=== PATIENT | male | born 1950 | race Caucasian/White ===

== ENCOUNTER 2017-03-08 15:08 | Emergency (ER) | payer MEDICARE ==
[2017-03-08 15:15] VITALS: BP 150/68
--- NOTE | 2017-03-08 16:25 | RAD ---
Indication: Cough, wheezing. 2 views of the chest including dual energy PA views demonstrate no mediastinal shift. Heart is of normal size and configuration. Lung vasques are clear. IMPRESSION: No active cardiopulmonary disease is noted. Patient is status post tracer thoracotomy.
--- NOTE | 2017-03-08 22:46 | UC ---
Dominga Martinez SooYoung, scribed for Samir Garcia MD on 03/08/17 at 1534 . Respiratory Complaint HPI - HPI Summary HPI Summary: A 66 y/o M presents to [facility] with c/o productive cough onset approx 10 days ago. Associated sx: mild fever, resolved; general malaise; post-nasal drip; head congestion. Denies vomiting. Aggravating factors: activity, exertion. Pt got sick on a trip to [place]. NKA. Pt takes daily baby aspirin. PMHx: mitral valve infection and repair in 2002. Non-smoker, occasional drinker. - History of Current Complaint Chief Complaint: UCRespiratory Stated Complaint: CHEST COLD Time Seen by Provider: 03/08/17 15:30 Hx Obtained From: Patient Onset/Duration: Gradual Onset, Lasting Days - approx 10, Still Present Timing: Constant Severity Initially: Mild Severity Currently: Mild Pain Intensity: 0 Pain Scale Used: 0-10 Numeric Character: Cough: Nonproductive Aggravating Factors: Exertion, Deep Breaths Associated Signs And Symptoms: Positive: Fever - resolved, Nasal Congestion - Allergies/Home Medications Allergies/Adverse Reactions: Allergies Allergy/AdvReac Type Severity Reaction Status Date / Time No Known Allergies Allergy Verified 03/08/17 15:23 PMH/Surg Hx/FS Hx/Imm Hx Previously Healthy: No Cardiovascular History: Myocardial Infarction - Surgical History Surgical History: Yes Surgery Procedure, Year, and Place: left scleral buckle. torn retina. tonsillectomy as a child. mitral valve repair - Family History Known Family History: Positive: Diabetes Family History: Parents lived to 93 y/o - Social History Occupation: Employed Full-time - SELF Lives: Alone Alcohol Use: Occasionally Substance Use Type: None Smoking Status (MU): Former Smoker When Did the Patient Quit Smoking/Using Tobacco: 20 yrs ago Review of Systems Constitutional: Fever ENT: Nasal Discharge - post nasal drip, Other - pos: head congestion Respiratory: Cough Gastrointestinal: Negative Musculoskeletal: Other: - pos: general malaise All Other Systems Reviewed And Are Negative: Yes Physical Exam Triage Information Reviewed: Yes Vital Signs: Initial Vital Signs Temp 98.3 F 03/08/17 15:11 Pulse 74 03/08/17 15:11 Resp 18 03/08/17 15:11 BP 150/68 03/08/17 15:11 Pulse Ox 97 03/08/17 15:11 Vital Signs Reviewed: Yes - Additional Comments The patient is well-nourished in no acute distress and in no acute pain. The skin is warm and dry and skin color reflects adequate perfusion. HEENT: The head is normocephalic and atraumatic. The pupils are equal and reactive. The conjunctivae are clear and without drainage. Nares are patent. Mouth reveals moist mucous membranes and the throat is without erythema and exudate. The external ears are intact. The ear canals are patent and without drainage. The tympanic membranes are intact. POST-NASAL DRIP. Neck is supple with full range of motion and non-tender. There are no carotid bruits. There is no neck vein distension. Respiratory: Chest is non-tender. DIFFUSE WHEEZING AND RHONCHI. Cardiovascular: Hear is regular rate and rhythm. There is no murmur or rub auscultated. There is no peripheral edema and pulses are symmetrical and equal. Musculoskeletal: There is no back pain noted. Extremities are non-tender with full range of motion. There is good capillary refill. There is no peripheral edema or calf tenderness elicited. Neurological: Patient is alert and oriented to person, place and time. The patient has symmetrical motor strength in all four extremities. Cranial nerves are grossly intact. Deep tendon reflexes are symmetrical and equal in all four extremities. Psychiatric: The patient has an appropriate affect and does not exhibit any anxiety or depression. Diagnostic Evaluation - Laboratory O2 Sat by Pulse Oximetry: 97 - Radiology Xray Interpretation: No Acute Changes - IMPRESSION: No acute cardiopulmonary dz. Pt is s/p tracer thoracotomy. Radiology Interpretation Completed By: Radiologist Respiratory Course/Dx - Course Course Of Treatment: Pt medications reviewed this visit. Hypertensive BP reading; patient referred to PCP within 1 day-4 wks for follow-up. - Differential Dx/Diagnosis Differential Diagnosis/HQI/PQRI: Bronchitis, Lower Resp Infection, Sinusitis Provider Diagnoses: Acute bronchitis. Elevated blood pressure without diagnosis of hypertension. Discharge - Discharge Plan Condition: Stable Disposition: HOME Prescriptions: Albuterol HFA INHALER* [Ventolin HFA Inhaler*] 2 puff INH Q6H PRN #1 mdi PRN Reason: Cough Azithromycin TAB* [Zithromax TAB (Z-VIANNEY) 250 mg #6 tabs] 2 tab PO .TODAY, THEN 1 DAILY #1 vianney predniSONE TAB* [Deltasone TAB*] 60 mg PO DAILY #15 tab Patient Education Materials: Albuterol (By breathing), Prednisone (By mouth), Azithromycin (By mouth), Acute Bronchitis (ED), Hypertension (ED) Referrals: [facility]ERR[facility] [Outside] No Primary Care Phys,NOPCP [Primary Care Provider] - Additional Instructions: Your blood pressure reading today was 150/68, which is HYPERTENSIVE. Establish with a new primary care provider and follow-up within 4 weeks for blood pressure readings and further evaluation. If you cant find a provider, try to check your blood pressure on your own and see if its above 120/80. If so, follow up for further evaluation and treatment. The documentation as recorded by the Dominga bell SooYoung accurately reflects the service I personally performed and the decisions made by me, Samir Garcia MD.
== END 2017-03-08 16:15 | disposition home or self-care (01) ==
LOC: UCEAST 15:08
DX: J20.9 Acute bronchitis, unspecified (principal); R03.0 Elevated blood-pressure reading, without diagnosis of hypertension; Z87.891 Personal history of nicotine dependence
CPT/HCPCS: 71020; 99212; G0463

== ENCOUNTER 2017-07-30 18:19 | Emergency (ER) | payer MEDICARE ==
[2017-07-30 18:35] VITALS: BP 112/68
--- NOTE | 2017-07-30 20:30 | ED ---
Upper Extremity Pain - HPI Summary HPI Summary: Rt hand dominant pt here w/ multiple fingers lacs Lt fingers, most notably middle finger, s/p table saw accident. Denies numbness, tingling, weakness. - History of Current Complaint Chief Complaint: EDLacSutureRecheck Stated Complaint: LT MIDDLE FINGER LAC Time Seen by Provider: 07/30/17 19:40 Hx Obtained From: Patient - Allergies/Home Medications Allergies/Adverse Reactions: Allergies Allergy/AdvReac Type Severity Reaction Status Date / Time No Known Allergies Allergy Verified 03/08/17 15:23 PMH/Surg Hx/FS Hx/Imm Hx Endocrine/Hematology History: Denies: Hx Diabetes, Hx Thyroid Disease Cardiovascular History: Denies: Hx Hypertension, Hx Pacemaker/ICD Respiratory History: Denies: Hx Asthma, Hx Chronic Obstructive Pulmonary Disease (COPD) GI History: Denies: Hx Ulcer - Surgical History Surgery Procedure, Year, and Place: left scleral buckle. torn retina. tonsillectomy as a child. mitral valve repair - Immunization History Date of Tetanus Vaccine: 2013 Infectious Disease History: No Infectious Disease History: Denies: Hx Clostridium Difficile, Hx Hepatitis, Hx Human Immunodeficiency Virus (HIV), Hx of Known/Suspected MRSA, Hx Shingles, Hx Tuberculosis, Hx Known/ Suspected VRE, Hx Known/Suspected VRSA, History Other Infectious Disease, Traveled Outside the [place] in Last 30 Days - Family History Known Family History: Positive: Diabetes Family History: Parents lived to 93 y/o - Social History Alcohol Use: Occasionally Substance Use Type: Reports: None Smoking Status (MU): Former Smoker Physical Exam Vital Signs On Initial Exam: Initial Vitals Temp Pulse Resp BP Pulse Ox 98.4 F 72 20 112/68 100 07/30/17 18:32 07/30/17 18:32 07/30/17 18:32 07/30/17 18:32 07/30/17 18:32 - Tushar Coma Scale Coma Scale Total: 15 Procedures - Laceration/Wound Repair 1 Location: upper extremity - Left middle finger Description: Irregular - curved lac over dorsal PIP joint Anesthesia: Digital, Lido Length, Depth and Shape: 4cm x 4mm Betadine Prep?: Yes Irrigated w/ Saline (ccs): 2,000 Laceration/Wound Explored: clean Closure: Single Layer Suture Type: Nylon - 5-0 Number of Sutures: 5 Layer Closure?: No Sterile Dressing Applied?: Yes - xerform dressing w/ gauze, splint, coban - pt tolerated well Diagnostics - Vital Signs Vital Signs Temp Pulse Resp BP Pulse Ox 07/30/17 18:32 98.4 F 72 20 112/68 100 - Laboratory Diagnostic Studies Comment: XR of left hand reveals fx through Lt PIP joint involving distal edge of proximal phalange bone and proximal edge of middle phalange - report read and image reviewed - agree. No other fractures identified and no FB present although what appears to be a bone fragment is present near PIP joint of Lt finger. Lab Statement: Any lab studies that have been ordered have been reviewed, and results considered in the medical decision making process. Course/Dx - Course Course Of Treatment: Discussed w/ Dr. Diez - copious irrigation and simple closure - dressed and stabilized with splint. Pt to call office in the morning for appt. Reviewed care plan w/ pt - he voices understanding and agrees w/ plan. - Diagnoses Provider Diagnoses: Multiple abrasions, Open fracture of phalanx of left middle finger Discharge - Discharge Plan Condition: Stable Disposition: HOME Patient Education Materials: Finger Fracture (ED), Finger Laceration (ED) Referrals: Michelle Diez MD [Medical Doctor] - Additional Instructions: Rest, ice, elevate Keep dressing clean, dry and in place until seen by hand specialist. Call tomorrow to schedule appointment tomorrow. Take antibiotics and pain medications as directed.
--- NOTE | 2017-07-30 21:03 | RAD ---
INDICATION: Finger lacerations COMPARISON: Left third digit July 30, 2015 TECHNIQUE: AP, lateral, and oblique views were obtained. FINDINGS: There is a deep laceration at the PIP joint of the third digit which involves both the distal aspect of the proximal phalanx and proximal aspect of the middle phalanx. There is no foreign body. No additional significant findings. IMPRESSION: LACERATION PIP JOINT OF THE THIRD DIGIT WITH ASSOCIATED BONE INVOLVEMENT.
[2017-07-30] MEDS ORDERED: Cephalexin CAP* 500 MG PO ONE (21:52)
[2017-07-31] MEDS ORDERED: Cephalexin CAP* 500 MG PO ONE (00:02)
[2017-07-31] MEDS ORDERED: HYDROcodone/ACETAMIN 5-325 MG* 1 TAB PO ONE (00:02)
== END 2017-07-31 00:24 | disposition home or self-care (01) ==
LOC: ED 18:19
DX: S61.213A Laceration without foreign body of left middle finger without damage to nail, initial encounter (principal); W29.8XXA Contact with other powered hand tools and household machinery, initial encounter; Y93.9 Activity, unspecified; Y92.9 Unspecified place or not applicable
CPT/HCPCS: 12002; 99282; A9270-GY

== ENCOUNTER 2018-06-26 12:31 | Inpatient (IN) | payer MEDICARE ==
[2018-06-26] MEDS ORDERED: Diltiazem IV* 5 MG/ML 5 ML VIAL (for loading dose/IV Push) (25 MG) ONE (16:38)
--- NOTE | 2018-06-26 17:08 | ED ---
Palpitations / Dysrhythmia - HPI Summary HPI Summary: This patient is a 67 year old M presenting to [facility] after being sent from his PCP after receiving a new dx of afib. The patient rates the pain 0/10 in severity. Patient reports bilateral LE edema, intermittent palpitations, and fatigue for the last two weeks. Patient denies CP, SOB, and feeling of syncope. - History of Current Complaint Time Seen by Provider: 06/26/18 16:40 Hx Obtained From: Patient Onset/Duration: Still Present Timing: Constant Severity Initially: Moderate Severity Currently: Moderate Character: Irregular Associated Signs & Symptoms: Negative - CP - Allergy/Home Medications Allergies/Adverse Reactions: Allergies Allergy/AdvReac Type Severity Reaction Status Date / Time colchicine AdvReac See Comment Verified 02/07/18 12:26 Home Medications: Home Medications Aspirin EC TAB* [Ecotrin EC Low Dose 81 MG*] 81 mg PO DAILY 06/26/18 [History Confirmed 06/26/18] PMH/Surg Hx/FS Hx/Imm Hx Endocrine/Hematology History: Denies: Hx Anticoagulant Therapy, Hx Blood Disorders, Hx Diabetes, Hx Thyroid Disease Cardiovascular History: Reports: Hx Atrial Fibrillation Denies: Hx Hypertension, Hx Pacemaker/ICD Respiratory History: Denies: Hx Asthma, Hx Chronic Obstructive Pulmonary Disease (COPD) GI History: Denies: Hx Ulcer - Surgical History Surgery Procedure, Year, and Place: left scleral buckle. torn retina. tonsillectomy as a child. mitral valve repair - Immunization History Date of Tetanus Vaccine: 2013 Infectious Disease History: Denies: Hx Clostridium Difficile, Hx Hepatitis, Hx Human Immunodeficiency Virus (HIV), Hx of Known/Suspected MRSA, Hx Shingles, Hx Tuberculosis, Hx Known/ Suspected VRE, Hx Known/Suspected VRSA, History Other Infectious Disease, Traveled Outside the [place] in Last 30 Days - Family History Known Family History: Positive: Diabetes Family History: Parents lived to 93 y/o - Social History Alcohol Use: Occasionally Hx Substance Use: No Substance Use Type: Reports: None Hx Tobacco Use: Yes Smoking Status (MU): Former Smoker Review of Systems Positive: Fatigue. Negative: Fever, Chills Negative: Erythema Negative: Sore Throat Positive: Palpitations. Negative: Chest Pain Negative: Shortness Of Breath, Cough Negative: Abdominal Pain, Vomiting, Nausea Negative: dysuria, hematuria Positive: Edema. Negative: Myalgia Negative: Rash Neurological: Negative - dizziness All Other Systems Reviewed And Are Negative: Yes Physical Exam - Summary Physical Exam Summary: Constitutional: Well-developed, Well-nourished, Alert. (-) Distressed Skin: Warm, Dry HENT: Normocephalic; Atraumatic Eyes: Conjunctiva normal Neck: Musculoskeletal ROM normal neck. (-) JVD, (-) Stridor, (-) Tracheal deviation Cardio: rapid irregular heart beat, Heart sounds normal; Intact distal pulses; The pedal pulses are 2+ and symmetric. Radial pulses are 2+ and symmetric. (-) Murmur Pulmonary/Chest wall: Effort normal. (-) Respiratory distress, (-) Wheezes, (-) Rales Abd: Soft, (-) epigastric tenderness, (-) Distension, (-) Guarding, (-) Rebound Musculoskeletal: (+) 2+ pitting Edema bilat LE Lymph: (-) Cervical adenopathy Neuro: Alert, Oriented x3 Psych: Mood and affect Normal Triage Information Reviewed: Yes Vital Signs Reviewed: Yes Diagnostics - Laboratory Result Diagrams: 06/26/18 16:10 06/26/18 16:10 Lab Statement: Any lab studies that have been ordered have been reviewed, and results considered in the medical decision making process. - Radiology CXR Radiology Interpretation Completed By: Radiologist - CARDIOMEGALY ED physician has reviewed this radiology report. - EKG 1246 Cardiac Rate: Tachycardia EKG Rhythm: Atrial Fibrillation - at 132 BPM EKG Interpretation: No STEMI Course/Dx - Course Assessment/Plan: This patient is a 67 year old M presenting to [facility] after being sent from his PCP after receiving a new dx of afib. The patient rates the pain 0/10 in severity. Patient reports bilateral LE edema, intermittent palpitations, and fatigue for the last two weeks. Patient denies CP, SOB, and feeling of syncope. An EKG reveals afib. CXR reveals, per radiologist, CARDIOMEGALY. Blood work obtained. In the ED course the patient was given lasix and diltiazem. Dx afib with RVR. We discussed patient care with Dr Kiser and they accepted the patient for admission. Patient will be admitted. The patient is agreeable with this plan. - Diagnoses Provider Diagnoses: Atrial fibrillation with RVR, CHF exacerbation - Physician Notifications Discussed Care Of Patient With: Sergey Monsones Time Discussed With Above Provider: 17:20 Instructed by Provider To: Admit As Inpatient - Critical Care Time Critical Care Time: 30-74 min - 45 minutes Discharge - Sign-Out/Discharge Documenting (check all that apply): Patient Departure - admitted - Discharge Plan Condition: Fair Disposition: ADMITTED TO [facility] Referrals: Wan Chester MD [Primary Care Provider] - - Attestation Statements Document Initiated by Scribe: Yes Documenting Scribe: Timothy Angel Provider For Whom Scribe is Documenting (Include Credential): [place] Andrea MD Scribe Attestation: Timothy Martinez , scribed for [place] Andrea MD on 06/26/18 at 1811.
[2018-06-26] MEDS ORDERED: Furosemide IV* 10 MG/ML VIAL (40 MG) IV ONE (17:43)
[2018-06-26] MEDS ORDERED: Furosemide IV* 10 MG/ML VIAL (40 MG) ONE (17:44)
[2018-06-26 18:05] LABS: EGFR Non-African American 56.1 (>60)
[2018-06-26] MEDS ORDERED: Al Hydrox/Mg Hydrox/Simet LIQ* 30 ML UDC PO PRN (18:09)
[2018-06-26 18:10] LABS: ABS Basophils 0 10^3/ul (0-0.2); ABS Eosinophils 0 10^3/ul (0-0.6); ABS Lymphocytes 0.7 10^3/ul (1.0-4.8); ABS Monocytes 0.5 10^3/ul (0-0.8); ABS Neutrophils 3.1 10^3/ul (1.5-7.7); ABS Nucleated RBC 0 10^3/ul; Eosinophil % 0.4 % (0-6); Hematocrit 31 % (42-52); Hemoglobin 9.8 g/dl (14.0-18.0); Lymphocyte % 16.4 % (25-47); Mean Corpuscular HGB Conc 32 g/dl (31-36); Mean Corpuscular Hemoglobin 35 pg (27-31); Mean Corpuscular Volume 110 fL (80-94); Mean Platelet Volume 8.5 um3 (7.4-10.4); Nucleated Red Blood Cells % 0.6; Platelet Count 192 10^3/ul (150-450); Red Cell Distribution Width 20 % (10.5-15); White Blood Count 4.4 10^3/ul (3.5-10.8)
--- NOTE | 2018-06-26 18:10 | RAD ---
HISTORY: SOB COMPARISONS: March 08, 2017 VIEWS: 1: frontal portable view of the chest at 5:21 PM FINDINGS: LINES AND TUBES: None. CARDIOMEDIASTINAL SILHOUETTE: The cardiac silhouette is enlarged. The cardiomediastinal silhouette is otherwise normal for portable technique. A prosthetic aortic valve is noted. PLEURA: The costophrenic angles are sharp. No pleural abnormalities are noted. LUNG PARENCHYMA: The lungs are clear. ABDOMEN: The upper abdomen is clear. There is no subphrenic gas. BONES AND SOFT TISSUES: The patient is status post median sternotomy. IMPRESSION: CARDIOMEGALY
[2018-06-26] MEDS ORDERED: Diltiazem DRIP* 100 MG/100 ML ADDV.BAG IVPB SCH (19:00)
[2018-06-26] MEDS ORDERED: Diltiazem IV VIAL* 125 MG in NS 0.9% 100 ML* 100 ML IV SCH (21:00)
[2018-06-26] MEDS: Enoxaparin(*) 80 MG/0.8 ML SYR SUBCUT SCH (21:28)
[2018-06-26] MEDS: Zolpidem TAB* 5 MG PO SCH (21:28)
--- NOTE | 2018-06-26 22:39 | HP ---
HISTORY AND PHYSICAL: DATE OF ADMISSION: 06/26/18 ADDENDUM: Please note that the patient's increased creatinine and increased liver function test are likely due to hypoperfusion and process of congestion respectively. I will repeat those tests in the morning and hopefully that will improve after intravenous Lasix treatment tonjeff. [id number]/[id number] #: [id number] MTDD
--- NOTE | 2018-06-27 00:09 | HP ---
ADDENDUM NOW INCLUDED ON THIS REPORT CC: Dr. Gorman; Dr. Bell * HISTORY AND PHYSICAL: DATE OF ADMISSION: 06/26/18 PRIMARY CARE PROVIDER: Dr. Agapito Bell. CHIEF COMPLAINT: "Atrial fibrillation." HISTORY OF PRESENT ILLNESS: Eliot Hernandez is a 67-year-old male who went in to see Dr. Bell for first doctor's appointment since he was switching from previously being Dr. Chester's patient. The patient stated that he noticed that he has gained approximately 6 pounds and his legs have been swollen and his abdominal girth increased for the past 2 weeks. He also noted that he was tired all the time, but denies shortness of breath per se. He did not have any chest pain or paroxysmal nocturnal dyspnea. He was seen by Dr. Bell who noted that patient is in atrial fibrillation with rapid ventricular response and directed the patient to the hospital. Here, the patient's heart rate was noted to be in the 130s and the patient received boluses of IV Cardizem. His brain natriuretic peptide is elevated and he appears to be in congestive heart failure. He is going to be admitted with diagnoses of atrial fibrillation with rapid ventricular response and CHF. PAST MEDICAL HISTORY: 1. History of retinal tear, status post left eye surgery. 2. History of dyslipidemia, on no medications. 3. 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 MEDICATIONS: 1. Aspirin 81 mg daily. 2. Occasional potassium supplement. ALLERGIES: COLCHICINE causes rash. FAMILY HISTORY: Positive for both parents dying in their 90s. Mother with secondary dementia. Father with history of dementia after a fall and femur fracture. 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 He denies any tobacco, alcohol, or drug use. He lives alone and he could not name his surrogate. REVIEW OF SYSTEMS: Please see history of present illness. In addition to leg edema, increasing abdominal girth, the patient also stated that he has early satiety for the past 2 weeks. He denies any chest pain. He also noted in the past to have leg cramps and he stated that when he has leg cramps, he uses additional potassium pill that he buys over the counter. All the remaining 12 systems were reviewed with the patient and were otherwise negative. PHYSICAL EXAMINATION GENERAL: The patient is a very pleasant 67-year-old male, who is in no acute distress. Alert, awake, and oriented x3. VITAL SIGNS: Blood pressure of 121/76, heart rate of 110 and irregular, respiratory rate 16, oxygen saturation 99% on room air. HEENT: Head: Atraumatic, normocephalic. Eyes: Pupils are equal, reactive to light and accommodation. Oropharynx is clear. Mucosa moist. NECK: Supple. Positive for JVD bilaterally. RESPIRATORY: Crackles at the bilateral bases. Otherwise clear. CARDIOVASCULAR: Irregularly irregular rhythm. No murmur. ABDOMEN: Full to palpation with no ascites noted. Soft, nontender. Bowel sounds are present in all 4 quadrants. EXTREMITIES: There is +1 pitting pedal edema all the way to the patient's knees with no evidence of clubbing or cyanosis and good peripheral pulses in all 4 extremities. NEURO EVALUATION: Speech clear. Cranial nerves II through XII are grossly intact. Motor strength is 5/5 bilaterally. SKIN: On evaluation of the skin, the patient has some superficial scratches on the right lower extremity, which appeared to be not infected. No other lesions noted. DIAGNOSTIC STUDIES/LAB DATA: Sodium of 133, potassium was hemolyzed, chloride of 102, carbon dioxide 20, BUN 16, creatinine 1.28. Liver function is increased with a bilirubin of 1.2, AST of 159, ALT of 160, and alk phos of 90. Troponin of 0.03. Brain natriuretic peptide was 616. The patient's CBC showed white blood cell count of 4.4, hemoglobin of 9.8, hematocrit of 30, MCV of 109, platelets of 192. The patient's TSH is pending at the time of dictation. The patient's troponin is 0.03 as above mentioned. The patient's EKG showed atrial fibrillation with rapid ventricular response with a heart rate of 132 beats per minute with negative T waves in leads V1 to V4 as well as ST depressions in those areas. Portable chest x-ray read by the radiologist as "cardiomegaly." ASSESSMENT AND PLAN: 1. The patient is in atrial fibrillation with rapid ventricular response as well as congestive heart failure, which is likely subsequent to the atrial fibrillation. At this point, the patient already received 40 mg of IV Lasix in the emergency department. I will repeat another dose of Lasix in the morning. 2. For this acute diastolic congestive heart failure, the patient is going to be placed on daily weights as well as intake and output summaries. 3. For his atrial fibrillation, the patient is going to be started on Cardizem drip. TSH is pending at the time of dictation. We will try to keep his electrolytes with magnesium over 2 and potassium over 4. The patient is going to be placed n.p.o. in the morning for a possibility of cardioversion. I will ask Dr. Gorman to see the patient in consultation. The patient was educated about the need for anticoagulation due to cardioembolic stroke prevention and he is initially going to be placed on Lovenox and then switch to either Coumadin or other newer anticoagulants, which he is inclined to use. 4. The patient is anemic and with macrocytosis. His vitamin B12, folate as well as ferritin is going to be obtained to evaluate it further. He has no history of melena or bleeding otherwise. Stool Hemoccult is also going to be obtained. 5. To evaluate for dyslipidemia, fasting lipid profile is going to be obtained in the morning. 6. For DVT prophylaxis, the patient already is going to be on Lovenox as mentioned above. 7. The patient's code status is full and he unfortunately was not able to name his surrogate for the time being. TIME SPENT: Approximately 65 minutes were spent on admission of this patient, more than half of that time was spent [id number] with the patient during the interview and physical exam. ADDENDUM: Please note that the patient's increased creatinine and increased liver function test are likely due to hypoperfusion and process of congestion respectively. I will repeat those tests in the morning and hopefully that will improve after intravenous Lasix treatment [place]. [id number] #: [id number] #: [id number]
[2018-06-27] MEDS: Enoxaparin(*) 80 MG/0.8 ML SYR SUBCUT SCH ×2 (06:18→19:59)
[2018-06-27 07:20] LABS: Hematocrit 29 % (42-52); Hemoglobin 9.7 g/dl (14.0-18.0); Mean Corpuscular HGB Conc 34 g/dl (31-36); Mean Corpuscular Hemoglobin 37 pg (27-31); Mean Corpuscular Volume 109 fL (80-94); Mean Platelet Volume 7.5 um3 (7.4-10.4); Platelet Count 206 10^3/ul (150-450); Red Blood Count 2.65 10^6/ul (4.00-5.40); Red Cell Distribution Width 20 % (10.5-15); White Blood Count 4.5 10^3/ul (3.5-10.8)
[2018-06-27 07:36] LABS: EGFR Non-African American 60.4 (>60)
[2018-06-27] MEDS ORDERED: Furosemide IV* 10 MG/ML 2 ML VIAL (20 MG) IV ONE (08:00)
[2018-06-27] MEDS: Diltiazem IV VIAL* 125 MG in NS 0.9% 100 ML* 100 ML IV SCH ×2 (08:05→14:07)
[2018-06-27 08:29] LABS: ABS Basophils 0 10^3/ul (0-0.2); ABS Neutrophils 2.8 10^3/ul (1.5-7.7); ABS Neutrophils 3.3 10^3/ul (1.5-7.7); Monocytes % 3 % (0-7)
[2018-06-27] MEDS: Aspirin EC TAB* 81 MG TAB.EC PO SCH (09:43)
[2018-06-27] MEDS ORDERED: Thiamine IV 100 MG, Folic Acid IV* 1 MG, Multiple Vitamin IV ADULT* 10 ML in D5NS 0.9% ... IV ONE (13:19)
[2018-06-27] MEDS ORDERED: Digoxin IV* 0.5 MG/2 ML AMP (0.25 MG/ML) IV SLOW PU ONE (13:19)
[2018-06-27] MEDS ORDERED: Metoprolol Tartrate IV* 1 MG/ML 5 ML VIAL IV PRN (13:22)
[2018-06-27] MEDS ORDERED: Metoprolol Tartrate IV* 1 MG/ML 5 ML VIAL IV ONE (14:25)
--- NOTE | 2018-06-27 14:49 | ECHO ---
Patient: LEXIE ROMAN [facility] Rec#: [id number] : 1950 Date: 06/27/2018 Age: 67y Height: 182.88 cm / 72.0 in Weight: 85 kg / 187.3 lbs Sex: M BSA: 2.07 Room#: [facility] Admit Date#: 06/26/2018 Type: Inpatient Referring: Eva Lux MD Reading: Bharath Gorman MD Cigar Maker: Viky Barbour RDCS CC: Agapito Sorenson Transthoracic Echocardiogram Indication: Abnormal EKG, Afib with RVR BP: 117/60 HR: 101 Rhythm: A-Fib Findings History: Spontaneous bacterial endocarditis 2001, MV repair for ruptured chordae 2002, HLD. Technical Comments: The study quality is fair. Completed at 1345. Left Ventricle: The left ventricular chamber size is normal. There is no left ventricular hypertrophy. There is normal left ventricular systolic function. The estimated ejection fraction is 55-60%. There is septal flattening of the interventricular septum consistent with right ventricular volume or pressure overload. The assessment of diastolic function is non-diagnostic. Left Atrium: The left atrium is severely dilated. Right Ventricle: Moderator Band present. The right ventricle is severely dilated. The right ventricular global systolic function is moderately reduced.moderately to severely reduced. Flattened in systole and diastole consistent with right ventricular pressure and volume overload. Right Atrium: The right atrial cavity size is severely dilated. Aortic Valve: The aortic valve is trileaflet. The aortic valve leaflets are mildly thickened. There is no evidence of aortic regurgitation. There is no evidence of aortic stenosis. Mitral Valve: The mitral valve leaflets are moderately thickened. Mitral valve leaflet mobility is severely restricted. There is a trace of mitral regurgitation. There is moderate to severe mitral stenosis. by 2d and mean gradient. The mean gradient across the mitral valve is 17 mmHg. The peak gradient across the mitral valve is 35 mmHg. The pressure half time of the mitral valve is 123 msec. Mitral valve repair functioning abnormally. Tricuspid Valve: The tricuspid valve leaflets are mildly thickened. There is severe tricuspid regurgitation. The right ventricular systolic pressure is estimated at 78 mmHg. There is evidence of severe pulmonary hypertension. There is no tricuspid stenosis. Pulmonic Valve: The pulmonic valve appears normal. There is a trace pulmonic regurgitation. There is no pulmonic stenosis. Pericardium: There is no significant pericardial effusion. Aorta: There is no dilatation of the ascending aorta. There is no dilatation of the aortic arch. The aortic root is normal in size. Pulmonary Artery: The main pulmonary artery is not well visualized. Venous: The inferior vena cava is dilated. There is less than 50% respiratory change in the inferior vena cava dimension. Hepatic vein systolic flow is reversed. Summary: There was not any prior study for comparison. Conclusions There is normal left ventricular systolic function. The estimated ejection fraction is 55-60%. There is septal flattening of the interventricular septum consistent with right ventricular volume or pressure overload. The left atrium is severely dilated. The right ventricle is severely dilated. The right ventricular global systolic function is moderately to severely reduced. Flattened in systole and diastole consistent with right ventricular pressure and volume overload. The right atrial cavity size is severely dilated. The aortic valve leaflets are mildly thickened. Echodense Mitral annulus c/w history of repair. There is moderate to severe mitral stenosis by 2d and mean gradient. There is a trace of mitral regurgitation. The mean gradient across the mitral valve is 17 mmHg. There is severe tricuspid regurgitation. The right ventricular systolic pressure is estimated at 78 mmHg. There is evidence of severe pulmonary hypertension. Measurements Name Value Normal Range RVIDd (AP) 2D 3.8 cm (0.9 - 2.6) RVDdMajor (2D) 6.5 cm (2.2 - 4.4) RAd ISD 4CH 8.2 cm (3.4 - 4.9) RA (A4C)W 6.6 cm (2.9 - 4.6) IVSd (2D) 0.8 cm (0.6 - 1) LVPWd (2D) 0.9 cm (0.6 - 1) LVIDd (2D) 5 cm (3.6 - 5.4) LVIDs (2D) 3.1 cm - LV FS (2D) 38 % (25 - 45) Aortic Annulus 2 cm (1.4 - 2.6) Ao root diameter (2D) 3 cm (2.1 - 3.5) Ascending Ao 3.2 cm (2.1 - 3.4) Aortic arch 2.3 cm (1.8 - 3.4) LA dimension (AP) 2D 5.7 cm (2.3 - 3.8) LAd ISD 4CH 8 cm (2.9 - 5.3) LA ISD 4CH W 5.7 cm (2.5 - 4.5) Name Value Normal Range LA ESV BP (A/L) index 69 ml/m2 - Name Value Normal Range MV E-wave Vmax 2.4 m/sec - MV deceleration time 400 msec - LV septal e' Vmax 0.06 m/sec - LV lateral e' Vmax 0.09 m/sec - LV E:e' septal ratio 40 ratio - LV E:e' lateral ratio 26.67 ratio - Name Value Normal Range AV Vmax 1.4 m/sec - AV VTI 28.4 cm - AV peak gradient 8 mmHg - AV mean gradient 4 mmHg - LVOT diameter 2 cm - LVOT Vmax 1.1 m/sec - LVOT VTI 19.9 cm - LVOT peak gradient 5 mmHg - LVOT mean gradient 2 mmHg - RANDAL Vmax 0.7 m/sec - Name Value Normal Range MV Vmax 2.9 m/sec - MV VTI 70 cm - MV peak gradient 35 mmHg - MV mean gradient 17 mmHg - MV PHT 123 msec - MVA (PHT) 1.8 cm2 - MVA (continuity VTI) 0.9 cm2 - Name Value Normal Range TR Vmax 3.8 m/sec - TR peak gradient 58 mmHg - RAP 20 mmHg - RVSP 78 mmHg - IVC diameter 2.8 cm - Name Value Normal Range PV Vmax 0.8 m/sec - PV peak gradient 3 mmHg -
[2018-06-27] MEDS ORDERED: Diltiazem IV VIAL* 125 MG in NS 0.9% 100 ML* 100 ML IV SCH (16:43)
--- NOTE | 2018-06-27 16:46 | PN ---
Subjective Date of Service: 06/27/18 Interval History: Pt feels that pedal edema is improving. no new complaints. still on Cardizem gtt today Objective Active Medications: Acetaminophen (Tylenol Tab*) 650 mg PO Q4H PRN PRN Reason: FEVER/PAIN Al Hydrox/Mg Hydrox/Simethicone (Maalox Plus*) 30 ml PO Q6H PRN PRN Reason: INDIGESTION Aspirin (Aspirin Ec Tab*) 81 mg PO DAILY [facility] Last Admin: 06/27/18 09:43 Dose: 81 mg Enoxaparin Sodium (Lovenox(*)) 80 mg SUBCUT Q12H [facility] Last Admin: 06/27/18 06:18 Dose: 80 mg Thiamine HCl 100 mg/ Folic Acid 1 mg/ Multivitamins 10 ml / Dextrose/Sodium Chloride 1,011.2 mls @ 252.8 mls/hr IV ONCE ONE Stop: 06/27/18 17:18 Last Admin: 06/27/18 14:41 Dose: 253 mls/hr Diltiazem HCl 125 mg/ Sodium (Chloride) 125 mls @ 5 mls/hr IV Q24H [facility]; Protocol Metoprolol Tartrate (Lopressor Tab*) 12.5 mg PO Q12HR [facility] Zolpidem Tartrate (Ambien Tab*) 5 mg PO BEDTIME [facility] Last Admin: 06/26/18 21:28 Dose: 5 mg Vital Signs - 8 hr 06/27/18 06/27/18 06/27/18 08:46 09:00 09:01 Temperature Pulse Rate 92 Respiratory Rate Blood Pressure 119/60 120/61 (mmHg) O2 Sat by Pulse 94 Oximetry 06/27/18 06/27/18 06/27/18 09:40 10:00 10:01 Temperature Pulse Rate 99 102 Respiratory Rate Blood Pressure 118/47 107/61 (mmHg) O2 Sat by Pulse 100 99 Oximetry 06/27/18 06/27/18 06/27/18 10:32 11:00 11:01 Temperature Pulse Rate 100 87 84 Respiratory Rate Blood Pressure 116/57 100/53 (mmHg) O2 Sat by Pulse 98 95 96 Oximetry 06/27/18 06/27/18 06/27/18 11:12 11:27 12:00 Temperature 98.2 F Pulse Rate 77 57 108 Respiratory 14 Rate Blood Pressure 101/48 (mmHg) O2 Sat by Pulse 94 97 98 Oximetry 06/27/18 06/27/18 06/27/18 12:02 13:00 13:01 Temperature Pulse Rate 103 102 100 Respiratory Rate Blood Pressure 131/58 96/47 (mmHg) O2 Sat by Pulse 99 99 99 Oximetry 06/27/18 06/27/18 06/27/18 14:00 14:06 14:42 Temperature Pulse Rate 96 94 90 Respiratory Rate Blood Pressure 110/54 (mmHg) O2 Sat by Pulse 95 99 Oximetry 06/27/18 06/27/18 06/27/18 15:00 15:12 15:17 Temperature Pulse Rate 83 Respiratory Rate Blood Pressure 111/56 125/55 (mmHg) O2 Sat by Pulse 98 Oximetry 06/27/18 06/27/18 06/27/18 15:24 16:00 16:12 Temperature 97.8 F Pulse Rate 65 72 Respiratory 16 Rate Blood Pressure 111/53 (mmHg) O2 Sat by Pulse 97 97 Oximetry Oxygen Devices in Use Now: None Appearance: 67 yo m in nAD, aAOx3 Eyes: No Scleral Icterus, PERRLA Ears/Nose/Mouth/Throat: NL Teeth, Lips, Gums, Mucous Membranes Moist Neck: - - +JVD Respiratory: Symmetrical Chest Expansion and Respiratory Effort, Clear to Auscultation Cardiovascular: NL Sounds; No Murmurs; No JVD, - - irregular Abdominal: NL Sounds; No Tenderness; No Distention, No Hepatosplenomegaly Lymphatic: No Cervical Adenopathy Extremities: No Clubbing, Cyanosis, - - +1 b/l pedal edema improving Skin: No Rash or Ulcers, No Nodules or Sclerosis Neurological: Alert and Oriented x 3, NL Muscle Strength and Tone Result Diagrams: 06/27/18 06:38 06/27/18 06:38 Assess/Plan/Problems-Billing Assessment: 67 yo M with h/o 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 fib with RVR and CHF - Patient Problems (1) Atrial fibrillation Comment: with RVR cont Cardizem gtt, starting BB cont lovenox for now, starting Coumadin tonight for valvular a. fib (2) CHF (congestive heart failure) Comment: Due to A. fib and mitral stenosis D/w DR. Gorman. Due to low SBP diuretics were held today. Pt will need mitral valve surgery in the near future (3) Anemia Comment: macrocytic, so far Vit B12 and folate levels WNL. will check stool guaiac. Pt denied significant ETOH use (4) LFT elevation Comment: due to vascular congestion, secondary to a. fib and mitral stenosis (5) DVT prophylaxis Comment: Lovenox Status and Disposition: inpatient
--- NOTE | 2018-06-27 21:45 | CONS ---
AMENDED REPORT NOW INCLUDES DATE OF CONSULT - ESIGNED BEFORE ADJUSTMENT CC: Dr. Bell * CARDIOLOGY CONSULTATION: DATE OF CONSULT: 06/27/18 CONSULTING PHYSICIAN: Dr. Eva Lux. REASON FOR CONSULT: AFib, congestive heart failure. HISTORY OF PRESENT ILLNESS: This is a very pleasant 67-year-old gentleman who has a remote history of mitral valve disease, endocarditis requiring mitral valve repair back in 2000. He apparently followed up near [facility] in regard to surgery for couple of years and then was not seen by stone crusher operator until now. 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 He does heavy physical work and hikes around the [place] [email or web address] and had been doing that up until last year without a problem. Earlier this year, he injured his back while trying to extract his lawn tractor from a ditch. He said that he injured his back and had to tighten up his body muscles to walk and minimize his discomfort. He also used high doses of Tylenol approximately 3000 mg a day until the end of May. After some physical therapy, he felt better, but he says he still felt like his stamina was down. He said over the last week and half, he has noted increased abdominal girth and increased edema in his legs. He said his weight had been as low as 183 five weeks ago and is up to 189 now. He was not aware of any rapid heart beats, but he has noticed occasional twitching in his chest. He said that he had been able to walk long distances last year, but recently can only go 2 blocks before being tired and he would stop once walking 2 blocks. He uses 2 pillows at night for comfort for his back. He said then over the last week and half, he also has developed bloating after meals and feels distressed and has decreased appetite. Because of those symptoms, he decided to connect with a new primary care doctor, so Dr. Bell, and apparently was referred for admission because he was noted to be in AFib with a rapid ventricular response. He was in the 130s. He received boluses of IV Cardizem with slowing of his heart rate. He says he feels better with slowing of his heart rate and diuresis. He denies previous history of AFib. He denies tobacco use since the 80s. He said he was occasionally drinking 6-pack or so beer on occasion with his friends socially earlier in the year, but has not had any alcohol in the last 2 months. He also says that he was drinking moderate amounts of caffeine until the last couple of months and now he has a rare tea. He denies hypertension, diabetes, hyperlipidemia. He does occasionally have stiff joints. PAST MEDICAL HISTORY: Includes the endocarditis in 2000 and mitral valve repair. He denied that he had coronary artery disease at that time based on his evaluation. PAST SURGICAL HISTORY: Includes the valve repair in 2000, left retinal tear in , and tonsillectomy as a child. MEDICATIONS: His medications as an outpatient include aspirin 81 mg daily and occasional potassium. His inpatient medications include enoxaparin 80 mg subcu q.12, which started yesterday; Ambien 5 mg at bedtime; acetaminophen p.r.n.; aspirin 81 mg a day; and IV diltiazem 10 mg an hour, and he got Lasix yesterday and this morning. ALLERGIES: He denied any allergies, but the chart shows COLCHICINE causes rash. FAMILY HISTORY: He has 2 sisters who has no premature coronary disease. His parents in the 90s from non-cardiac related issues. SOCIAL HISTORY: He was never , has no children. 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 He lives alone. REVIEW OF SYSTEMS: Review of systems x10 was negative except as above. PHYSICAL EXAM: He is a well-developed, well-nourished gentleman, no apparent distress. Weight of 187 pounds, up 1 pound from yesterday. I's and O's negative 1246 this morning. O2 sats 99% on room air. Blood pressure 131/58 now with a heart rate in the 80s to 100s and irregular. Blood pressure early in the day was 100/53, 101/48 midday. There is JVD of approximately 14 cm with hepatojugular reflux. Carotids are 2+ without bruits. Extraocular muscles intact. Sclerae anicteric. Cardiac Exam: S1, S2 with tachyarrhythmia and a soft intermittent 2/6 holosystolic murmur at the left lower sternal border and apex. Chest was clear. No CVAT. Abdomen: Bowel sounds present. Nontender. No hepatosplenomegaly. Femoral pulses intact without bruits. Distal pulses diminished, but present. There is 2+ edema in the left lower extremity and 1+ on the right. DIAGNOSTIC STUDIES/LAB DATA: Include normal iron studies, elevated transaminases, AST of 146, ALT of 169, and that is improved compared to yesterday. BNP elevated at 616 yesterday, lactate of 2.7 yesterday, and white count 4.5, hemoglobin of 9.7, hematocrit of 29, MCV elevated at 109, RDW of 20, platelet count of 206. His vitamin B12 was greater than 1450, folic acid was greater than 20, TSH of 2.45, and troponin of 0.03 yesterday, 0.05 last night, 0.03 at midnight, lactic acid elevated at 2.7. Chest x-ray revealed cardiomegaly and EKG revealed atrial fibrillation, heart rate in the 90s, and poor R-wave progression, nonspecific ST-T changes and that is improved compared to yesterday when his heart rate was in the 130s and ST-T changes were pronounced. IMPRESSION AND PLAN: My impression is that Mr. Hernandez has a history of mitral valve repair for endocarditis and presumable mitral regurgitation as well as recently diagnosed rapid atrial fibrillation and associated congestive heart. The etiology of his heart failure is unclear, but may be related to tachycardia- induced cardiomyopathy versus primary cardiomyopathy. He also has a history of moderate alcohol use and has a high MCV with a possibility of vitamin deficiency. I discussed at length the potential treatment options and for the time being, I have recommended the followin. Given the risk of cardioembolic events, I did recommend anticoagulation and evaluation for his anemia and close following up of his hematocrit. 2. We will try to maintain his potassium of 4. 3. Would try to control his heart rate. If his blood pressure is low, consider using digoxin and low does of beta-miguel given his LV dysfunction. 4. Would wean off the diltiazem as soon as possible given his potential for decreased LV function. 5. He is to have an echo to assess his LV function and mitral valve function. 6. Consider possibility of SHAYLA-guided cardioversion, but given the presence of volume overload and decompensated congestive heart failure, we will just continue optimization prior to attempted cardioversion. 7. Would avoid caffeine and alcohol. 8. At some point, he may require evaluation for coronary disease. 9. Would treat with thiamine. Further recommendations will depend on his clinical course. [id number]/[facility] #: [id number] ADDENDUM: see echo report of 06.27.18 It revealed moderate to severe Mitral stenosis (the Mean gradient may be elevated due to the rapid heart rate) with severe pulmonary hypertension and significant RV dyfunction. [facility] 06.28.18 MTDD
[2018-06-27] MEDS: Metoprolol Tartrate TAB* 25 MG PO SCH (21:55)
[2018-06-27] MEDS: Zolpidem TAB* 5 MG PO SCH (21:57)
[2018-06-28] MEDS ORDERED: Digoxin IV* 0.5 MG/2 ML AMP (0.25 MG/ML) IV SLOW PU ONE ×2 (06:50→21:22)
[2018-06-28] MEDS: Enoxaparin(*) 80 MG/0.8 ML SYR SUBCUT SCH ×2 (07:39→22:02)
[2018-06-28] MEDS ORDERED: Furosemide IV* 10 MG/ML 2 ML VIAL (20 MG) IV ONE (07:52)
[2018-06-28 07:56] LABS: Hematocrit 26 % (42-52); Hemoglobin 8.6 g/dl (14.0-18.0); Mean Corpuscular HGB Conc 33 g/dl (31-36); Mean Corpuscular Hemoglobin 36 pg (27-31); Mean Corpuscular Volume 110 fL (80-94); Mean Platelet Volume 7.6 um3 (7.4-10.4); Platelet Count 196 10^3/ul (150-450); Red Blood Count 2.41 10^6/ul (4.00-5.40); Red Cell Distribution Width 20 % (10.5-15); White Blood Count 3.7 10^3/ul (3.5-10.8)
[2018-06-28 08:00] LABS: INR 1.28 (0.77-1.02)
[2018-06-28 08:04] LABS: EGFR Non-African American 61.6 (>60)
[2018-06-28] MEDS: Aspirin EC TAB* 81 MG TAB.EC PO SCH (08:56)
[2018-06-28] MEDS: Metoprolol Tartrate TAB* 25 MG PO SCH (08:57)
[2018-06-28] MEDS ORDERED: Metoprolol Tartrate IV* 1 MG/ML 5 ML VIAL IV ONE (09:54)
[2018-06-28] MEDS ORDERED: Metoprolol Succinate XL TAB* 25 MG PO ONE (09:55)
[2018-06-28] MEDS ORDERED: Diltiazem IV VIAL* 125 MG in NS 0.9% 100 ML* 100 ML IV SCH (10:00)
--- NOTE | 2018-06-28 11:37 | PN ---
Subjective Date of Service: 06/28/18 Interval History: Pt had a "bad night", can't sleep because of the noise of "the hospital". No worsening SOB, denies CP Objective Active Medications: Acetaminophen (Tylenol Tab*) 650 mg PO Q4H PRN PRN Reason: FEVER/PAIN Al Hydrox/Mg Hydrox/Simethicone (Maalox Plus*) 30 ml PO Q6H PRN PRN Reason: INDIGESTION Aspirin (Aspirin Ec Tab*) 81 mg PO DAILY [facility] Last Admin: 06/28/18 08:56 Dose: 81 mg Enoxaparin Sodium (Lovenox(*)) 80 mg SUBCUT Q12H [facility] Last Admin: 06/28/18 07:39 Dose: 80 mg Diltiazem HCl 125 mg/ Sodium (Chloride) 125 mls @ 2.5 mls/hr IV Q24H [facility]; Protocol Last Admin: 06/28/18 10:50 Dose: 2.5 mls/hr Metoprolol Tartrate (Lopressor Tab*) 12.5 mg PO Q12HR [facility] Last Admin: 06/28/18 08:57 Dose: 12.5 mg Zolpidem Tartrate (Ambien Tab*) 5 mg PO BEDTIME [facility] Last Admin: 06/27/18 21:57 Dose: Not Given Vital Signs - 8 hr 06/28/18 06/28/18 06/28/18 03:45 04:43 07:39 Temperature 97.1 F Pulse Rate 73 84 Respiratory 20 Rate Blood Pressure 108/57 (mmHg) O2 Sat by Pulse 100 Oximetry Oxygen Devices in Use Now: None Appearance: 67 y o M in nAD, aAOx3 Eyes: No Scleral Icterus, PERRLA Ears/Nose/Mouth/Throat: NL Teeth, Lips, Gums, Mucous Membranes Moist Neck: NL Appearance and Movements; NL JVP, Trachea Midline Respiratory: Symmetrical Chest Expansion and Respiratory Effort, - - crackles at b/l bases Cardiovascular: - - irreegular Extremities: No Clubbing, Cyanosis, - - +1 piting pedela edema b/l Skin: No Rash or Ulcers, No Nodules or Sclerosis Neurological: Alert and Oriented x 3, NL Muscle Strength and Tone Result Diagrams: 06/28/18 06:48 06/28/18 06:48 Microbiology and Other Data: Microbiology 06/28/18 06:16 Stool Occult Blood (JASWINDER) - Final Stool Assess/Plan/Problems-Billing Assessment: 67 yo M with h/o 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 fib with RVR and CHF - Patient Problems (1) Atrial fibrillation Comment: with RVR cont Cardizem gtt,titrating up BB as per DR. Gorman cont lovenox for now, starting Coumadin tonight for valvular a. fib (2) CHF (congestive heart failure) Comment: Due to A. fib and mitral stenosis D/w DR. Gorman. Tc with Lasix 20 mg today Pt will need mitral valve surgery in the near future (3) Anemia Comment: macrocytic, so far Vit B12 and folate levels WNL. stool guaiac neg Pt denied significant ETOH use (4) LFT elevation Comment: due to vascular congestion, secondary to a. fib and mitral stenosis improving (5) DVT prophylaxis Comment: Lovenox Status and Disposition: inpatient
[2018-06-28] MEDS: Polyethylene Glycol 3350* 17 GM PACKET PO SCH (12:44)
[2018-06-28] MEDS: Warfarin TAB(*) 5 MG PO SCH (19:38)
[2018-06-28] MEDS ORDERED: Metoprolol Tartrate TAB* 25 MG PO SCH (21:00)
[2018-06-28] MEDS ORDERED: Metoprolol Succinate XL TAB* 25 MG PO SCH (22:00)
[2018-06-28] MEDS: Magnesium Hydroxide LIQ* 30 ML UDC PO PRN (22:02)
[2018-06-28] MEDS: Docusate CAP* 100 MG PO SCH (22:02)
[2018-06-28] MEDS: Metoprolol Succinate XL TAB* 25 MG PO SCH (22:02)
[2018-06-28] MEDS: Zolpidem TAB* 5 MG PO SCH (22:04)
[2018-06-29] MEDS: Enoxaparin(*) 80 MG/0.8 ML SYR SUBCUT SCH ×2 (06:16→19:59)
[2018-06-29 06:20] LABS: Hematocrit 26 % (42-52); Hemoglobin 8.6 g/dl (14.0-18.0); Mean Corpuscular HGB Conc 34 g/dl (31-36); Mean Corpuscular Hemoglobin 36 pg (27-31); Mean Corpuscular Volume 107 fL (80-94); Mean Platelet Volume 7.1 um3 (7.4-10.4); Platelet Count 170 10^3/ul (150-450); Red Blood Count 2.38 10^6/ul (4.00-5.40); Red Cell Distribution Width 20 % (10.5-15); White Blood Count 2.8 10^3/ul (3.5-10.8)
[2018-06-29 06:31] LABS: INR 1.27 (0.77-1.02)
[2018-06-29 06:36] LABS: EGFR Non-African American 78.1 (>60)
[2018-06-29 06:42] LABS: ABS Basophils 0 10^3/ul (0-0.2); ABS Eosinophils 0.1 10^3/ul (0-0.6); ABS Lymphocytes 0.7 10^3/ul (1.0-4.8); ABS Monocytes 0.4 10^3/ul (0-0.8); ABS Neutrophils 1.6 10^3/ul (1.5-7.7); ABS Nucleated RBC 0 10^3/ul; Eosinophil % 3.1 % (0-6); Lymphocyte % 25.3 % (25-47); Nucleated Red Blood Cells % 0.7
[2018-06-29] MEDS ORDERED: Furosemide IV* 10 MG/ML 2 ML VIAL (20 MG) IV SLOW PU ONE (07:00)
[2018-06-29] MEDS: Polyethylene Glycol 3350* 17 GM PACKET PO SCH (09:11)
[2018-06-29] MEDS: Docusate CAP* 100 MG PO SCH ×2 (09:12→20:00)
[2018-06-29] MEDS: Aspirin EC TAB* 81 MG TAB.EC PO SCH (09:12)
[2018-06-29] MEDS: Metoprolol Succinate XL TAB* 25 MG PO SCH ×2 (09:12→21:36)
[2018-06-29] MEDS ORDERED: Digoxin IV* 0.5 MG/2 ML AMP (0.25 MG/ML) IV SLOW PU ONE ×2 (10:34→13:34)
[2018-06-29] MEDS ORDERED: Metoprolol Succinate XL TAB* 25 MG PO ONE (10:35)
[2018-06-29] MEDS ORDERED: Potassium Chloride LIQUID* 20 MEQ PACKET PO ONE (10:37)
[2018-06-29] MEDS ORDERED: Magnesium Sulfate 1 GM IV* 1 GM/100 ML BAG IV ONE (12:32)
--- NOTE | 2018-06-29 12:41 | ECHO ---
Amended Report Patient: LEXIE ROMAN [facility] Rec#: [id number] : 1950 Date: 06/29/2018 Age: 67y Height: 183 cm / 72.0 in Weight: 86 kg / 189.5 lbs Sex: M BSA: 2.08 Room#: [facility] 02 Admit Date#: 06/26/2018 Type: Inpatient Referring: Bharath Gorman MD Reading: Bharath Gorman MD System Sales Consultant: Anastasia Salinas,RDCS,RDMS CC: Agapito Sorenson Transthoracic Echocardiogram Indication: Valvular disease BP: 123/64 HR: 94 Rhythm: A-Fib Findings History: LIMITED ECHO. MV repair, endocarditis, HLD Technical Comments: The study quality is good. Left Ventricle: The estimated ejection fraction is 55-60%. There is septal flattening of the interventricular septum consistent with right ventricular volume or pressure overload. Left Atrium: The left atrium is severely dilated. Right Ventricle: The right ventricle is severely dilated. The right ventricular global systolic function is moderately reduced. Right Atrium: The right atrial cavity size is severely dilated. Mitral Valve: There is a trace of mitral regurgitation. The mitral valve area, by pressure half time, is calculated at 1.6 cm2. which may overestimate the valve area due to technical issues. The mean gradient is 11 mmhg is consistent with severe MS but may be exaggerated due to the hr of 94-107 bpm. Probable moderate to severe MS by 2d and overall. Mitral valve repair functioning abnormally.The leaflets are thickened and restricted. Tricuspid Valve: There is severe tricuspid regurgitation. The right ventricular systolic pressure is estimated at 56 mmHg. There is evidence of moderate to severe pulmonary hypertension. Pericardium: There is no significant pericardial effusion. Conclusions The estimated ejection fraction is 55-60%. There is septal flattening of the interventricular septum consistent with right ventricular volume or pressure overload. The left atrium is severely dilated. The right ventricle is severely dilated. The right ventricular global systolic function is moderately reduced. The right atrial cavity size is severely dilated. The mitral valve area, by pressure half time, is calculated at 1.6 cm2. which may overestimate the valve area due to technical issues. The mean gradient is 11 mmhg is consistent with severe MS but may be exaggerated due to the heart rate of 94 - 107 bpm. Probable moderate to severe MS by 2d and overall. Mitral valve repair functioning abnormally.The leaflets are thickened and restricted. There is a trace of mitral regurgitation. There is severe tricuspid regurgitation. The right ventricular systolic pressure is estimated at 56 mmHg. There is evidence of moderate to severe pulmonary hypertension. Interval decrease in Mean MS gradient and PASP c/t 06/26/18 when the mean gradient was 17 mmhg, and the pasp was 78 mmhg. Measurements Name Value Normal Range MV E-wave Vmax 2.3 m/sec - MV deceleration time 315 msec - LV septal e' Vmax 0.11 m/sec - LV E:e' septal ratio 20.5 ratio - Name Value Normal Range MV Vmax 2.3 m/sec - MV VTI 63 cm - MV peak gradient 21 mmHg - MV mean gradient 11 mmHg - MV PHT 137 msec - MVA (PHT) 1.6 cm2 - Name Value Normal Range TR Vmax 3 m/sec - TR peak gradient 36 mmHg - RAP 20 mmHg - RVSP 56 mmHg - IVC diameter 2.7 cm -
[2018-06-29] MEDS: Magnesium Oxide TAB* 400 MG PO SCH (13:40)
[2018-06-29] MEDS ORDERED: Furosemide IV* 10 MG/ML VIAL (40 MG) IV ONE (13:41)
--- NOTE | 2018-06-29 14:27 | PN ---
Subjective Date of Service: 06/29/18 Interval History: Pt had asymptomatic 3 beats of V. tach this AM. Has no problems with SOB lying down. Legs still swollen Objective Active Medications: Acetaminophen (Tylenol Tab*) 650 mg PO Q4H PRN PRN Reason: FEVER/PAIN Al Hydrox/Mg Hydrox/Simethicone (Maalox Plus*) 30 ml PO Q6H PRN PRN Reason: INDIGESTION Aspirin (Aspirin Ec Tab*) 81 mg PO DAILY [facility] Last Admin: 06/29/18 09:12 Dose: 81 mg Digoxin (Lanoxin Tab*) 0.25 mg PO 1700 [facility] Docusate Sodium (Colace Cap*) 100 mg PO BID [facility] Last Admin: 06/29/18 09:12 Dose: 100 mg Enoxaparin Sodium (Lovenox(*)) 80 mg SUBCUT Q12H [facility] Last Admin: 06/29/18 06:16 Dose: 80 mg Magnesium Hydroxide (Milk Of Magnjenniffer Liq*) 30 ml PO Q4H PRN PRN Reason: CONSTIPATION Last Admin: 06/28/18 22:02 Dose: 30 ml Magnesium Oxide (Magox 400 Tab*) 800 mg PO DAILY [facility] Last Admin: 06/29/18 13:40 Dose: 800 mg Metoprolol Succinate (Toprol Xl Tab*) 25 mg PO BID [facility] Last Admin: 06/29/18 09:12 Dose: 25 mg Polyethylene Glycol/Electrolytes (Miralax*) 17 gm PO DAILY [facility] Last Admin: 06/29/18 09:11 Dose: 17 gm Potassium Chloride (Klor-Con Liquid*) 20 meq PO DAILY [facility] Warfarin Sodium (Coumadin Tab(*)) 5 mg PO DAILY@1700 [facility]; Protocol Last Admin: 06/28/18 19:38 Dose: 5 mg Zolpidem Tartrate (Ambien Tab*) 5 mg PO BEDTIME [facility] Last Admin: 06/28/18 22:04 Dose: Not Given Vital Signs - 8 hr 06/29/18 06/29/18 06/29/18 07:47 08:00 08:57 Temperature Pulse Rate 87 Respiratory 20 Rate Blood Pressure 128/62 (mmHg) O2 Sat by Pulse 98 Oximetry 06/29/18 06/29/18 06/29/18 11:21 11:23 11:36 Temperature 98.4 F 98.4 F Pulse Rate 176 176 106 Respiratory 18 Rate Blood Pressure 130/58 130/58 (mmHg) O2 Sat by Pulse 99 99 Oximetry 06/29/18 13:40 Temperature Pulse Rate 85 Respiratory Rate Blood Pressure (mmHg) O2 Sat by Pulse Oximetry Oxygen Devices in Use Now: None Appearance: 67 yo M in NAD, AAOx3 Eyes: No Scleral Icterus, PERRLA Ears/Nose/Mouth/Throat: NL Teeth, Lips, Gums, Mucous Membranes Moist Neck: NL Appearance and Movements; NL JVP, Trachea Midline Respiratory: Symmetrical Chest Expansion and Respiratory Effort, - - crackles at b/l bases Cardiovascular: - - irregular Abdominal: NL Sounds; No Tenderness; No Distention, No Hepatosplenomegaly Lymphatic: No Cervical Adenopathy Extremities: No Clubbing, Cyanosis, - - +1 pitting pedal edema Skin: No Rash or Ulcers, No Nodules or Sclerosis Neurological: Alert and Oriented x 3, NL Muscle Strength and Tone Result Diagrams: 06/29/18 05:54 06/29/18 05:54 Microbiology and Other Data: Microbiology 06/28/18 06:16 Stool Occult Blood (JASWINDER) - Final Stool Assess/Plan/Problems-Billing Assessment: 67 yo M with h/o 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 fib with RVR and CHF - Patient Problems (1) Atrial fibrillation Comment: with RVR Off Cardizem gtt,titrating up BB , digoxin as per DR. Gorman cont lovenox for now, Coumadin started on 06/29/18 (2) CHF (congestive heart failure) Comment: Due to A. fib and mitral stenosis D/w DR. Gorman. Tc with Lasix 40 mg today Pt will need mitral valve surgery in the near future (3) Anemia Comment: macrocytic, so far Vit B12 and folate levels WNL. Unknown etiology.? liver congestion? stool guaiac neg Pt denied significant ETOH use (4) LFT elevation Comment: due to vascular congestion, secondary to a. fib and mitral stenosis improving (5) DVT prophylaxis Comment: Lovenox/Coumadin Status and Disposition: inpatient
[2018-06-29] MEDS: Warfarin TAB(*) 5 MG PO SCH (16:43)
[2018-06-29] MEDS: Zolpidem TAB* 5 MG PO SCH (21:36)
[2018-06-30 06:55] LABS: INR 1.21 (0.77-1.02)
[2018-06-30 06:57] LABS: ABS Neutrophils 1.4 10^3/ul (1.5-7.7); Hematocrit 25 % (42-52); Hemoglobin 8.5 g/dl (14.0-18.0); Mean Corpuscular HGB Conc 34 g/dl (31-36); Mean Corpuscular Hemoglobin 36 pg (27-31); Mean Corpuscular Volume 108 fL (80-94); Platelet Count 158 10^3/ul (150-450); Red Blood Count 2.36 10^6/ul (4.00-5.40); Red Cell Distribution Width 20 % (10.5-15); White Blood Count 2.6 10^3/ul (3.5-10.8)
[2018-06-30 07:36] LABS: ABS Basophils 0 10^3/ul (0-0.2); ABS Eosinophils 0.1 10^3/ul (0-0.6); ABS Lymphocytes 0.7 10^3/ul (1.0-4.8); ABS Monocytes 0.5 10^3/ul (0-0.8); ABS Nucleated RBC 0 10^3/ul; Eosinophil % 2.4 % (0-6); Lymphocyte % 25.4 % (25-47); Nucleated Red Blood Cells % 0.7
[2018-06-30] MEDS: Enoxaparin(*) 80 MG/0.8 ML SYR SUBCUT SCH ×2 (07:36→19:36)
[2018-06-30] MEDS ORDERED: Furosemide IV* 10 MG/ML VIAL (40 MG) IV ONE (08:05)
[2018-06-30] MEDS: Magnesium Hydroxide LIQ* 30 ML UDC PO PRN (08:24)
[2018-06-30] MEDS: Polyethylene Glycol 3350* 17 GM PACKET PO SCH (08:24)
[2018-06-30] MEDS: Metoprolol Succinate XL TAB* 25 MG PO SCH ×2 (08:25→21:53)
[2018-06-30] MEDS: Docusate CAP* 100 MG PO SCH ×2 (08:25→21:54)
[2018-06-30] MEDS: Magnesium Oxide TAB* 400 MG PO SCH (08:25)
[2018-06-30] MEDS: Potassium Chloride LIQUID* 20 MEQ PACKET PO SCH (08:42)
--- NOTE | 2018-06-30 10:10 | PN ---
Subjective Date of Service: 06/30/18 Interval History: Pt c/o leg edema, no HERMAN. Telem shows A. fib HR80-90's , rare PVC's Objective Active Medications: Acetaminophen (Tylenol Tab*) 650 mg PO Q4H PRN PRN Reason: FEVER/PAIN Al Hydrox/Mg Hydrox/Simethicone (Maalox Plus*) 30 ml PO Q6H PRN PRN Reason: INDIGESTION Digoxin (Lanoxin Tab*) 0.25 mg PO 1700 [facility] Docusate Sodium (Colace Cap*) 100 mg PO BID [facility] Last Admin: 06/30/18 08:25 Dose: 100 mg Enoxaparin Sodium (Lovenox(*)) 80 mg SUBCUT Q12H [facility] Last Admin: 06/30/18 07:36 Dose: 80 mg Furosemide (Lasix Iv*) 20 mg IV ONCE ONE Stop: 06/30/18 17:01 Magnesium Hydroxide (Milk Of Magnesia Liq*) 30 ml PO Q4H PRN PRN Reason: CONSTIPATION Last Admin: 06/30/18 08:24 Dose: 30 ml Magnesium Oxide (Magox 400 Tab*) 800 mg PO DAILY [facility] Last Admin: 06/30/18 08:25 Dose: 800 mg Metoprolol Succinate (Toprol Xl Tab*) 25 mg PO BID [facility] Last Admin: 06/30/18 08:25 Dose: 25 mg Polyethylene Glycol/Electrolytes (Miralax*) 17 gm PO DAILY [facility] Last Admin: 06/30/18 08:24 Dose: 17 gm Potassium Chloride (Klor-Con Liquid*) 20 meq PO DAILY [facility] Last Admin: 06/30/18 08:42 Dose: 20 meq Warfarin Sodium (Coumadin Tab(*)) 5 mg PO DAILY@1700 [facility]; Protocol Last Admin: 06/29/18 16:43 Dose: 5 mg Zolpidem Tartrate (Ambien Tab*) 5 mg PO BEDTIME [facility] Last Admin: 06/29/18 21:36 Dose: 5 mg Vital Signs - 8 hr 06/30/18 06/30/18 04:12 08:00 Temperature 98.0 F 97.4 F Pulse Rate 76 81 Respiratory 20 16 Rate Blood Pressure 108/59 112/58 (mmHg) O2 Sat by Pulse 98 100 Oximetry Oxygen Devices in Use Now: None Appearance: 67 yo M in nAD, aAOx3 Eyes: No Scleral Icterus, PERRLA Ears/Nose/Mouth/Throat: NL Teeth, Lips, Gums, Mucous Membranes Moist Neck: NL Appearance and Movements; NL JVP, Trachea Midline Respiratory: Symmetrical Chest Expansion and Respiratory Effort, Clear to Auscultation Cardiovascular: - - irregular Abdominal: NL Sounds; No Tenderness; No Distention, No Hepatosplenomegaly Lymphatic: No Cervical Adenopathy Extremities: No Clubbing, Cyanosis, - - +1 pitting pedal edema unchanged Skin: No Rash or Ulcers, No Nodules or Sclerosis Neurological: Alert and Oriented x 3, NL Muscle Strength and Tone Result Diagrams: 06/30/18 06:28 06/30/18 06:28 Microbiology and Other Data: Microbiology 06/28/18 06:16 Stool Occult Blood (JASWINDER) - Final Stool Assess/Plan/Problems-Billing Assessment: 67 yo M with h/o 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 fib with RVR and CHF - Patient Problems (1) Atrial fibrillation Comment: with RVR Off Cardizem gtt,titrating up BB , digoxin as per DR. Gorman. D/w Dr. Jonas today who may be able to cardivert pt in AM cont lovenox for now, Coumadin started on 06/29/18 (2) CHF (congestive heart failure) Comment: Due to A. fib and mitral stenosis D/w DR. Gorman. Tc with Lasix 60 mg total today Pt will need mitral valve surgery in the near future (3) Anemia Comment: macrocytic, so far Vit B12 and folate levels WNL. Unknown etiology.? liver congestion? stool guaiac neg Pt denied significant ETOH use (4) LFT elevation Comment: due to vascular congestion, secondary to a. fib and mitral stenosis improving (5) DVT prophylaxis Comment: Lovenox/Coumadin Status and Disposition: inpatient
[2018-06-30] MEDS: Warfarin TAB(*) 5 MG PO SCH (16:47)
[2018-06-30] MEDS: Digoxin TAB* 0.25 MG PO SCH (16:48)
[2018-06-30] MEDS ORDERED: Furosemide IV* 10 MG/ML 2 ML VIAL (20 MG) IV ONE (17:00)
[2018-06-30] MEDS: Zolpidem TAB* 5 MG PO SCH (21:53)
[2018-07-01 06:08] LABS: Immature Retic Fraction 0.64; RBC Retic Count 2.41 10^6/ul (4.6-6.2); Red Blood Count 2.41 10^6/ul (4.00-5.40)
[2018-07-01 06:13] LABS: ABS Neutrophils 1.4 10^3/ul (1.5-7.7); Corrected Retic Count 1.6 % (0.5-1.5); Hematocrit 26 % (42-52); Hematocrit for Retic CNT 26 % (42-52); Hemoglobin 8.5 g/dl (14.0-18.0); INR 1.21 (0.77-1.02); Mean Corpuscular HGB Conc 33 g/dl (31-36); Mean Corpuscular Hemoglobin 35 pg (27-31); Mean Corpuscular Volume 108 fL (80-94); Mean Platelet Volume 7.1 um3 (7.4-10.4); Platelet Count 153 10^3/ul (150-450); Red Cell Distribution Width 20 % (10.5-15); White Blood Count 2.8 10^3/ul (3.5-10.8)
[2018-07-01] MEDS: Enoxaparin(*) 80 MG/0.8 ML SYR SUBCUT SCH ×2 (06:17→18:21)
[2018-07-01 06:31] LABS: EGFR Non-African American 63.4 (>60); Uric Acid 10.6 mg/dL (4.4-7.6)
[2018-07-01 08:22] LABS: ABS Basophils 0 10^3/ul (0-0.2); ABS Eosinophils 0.1 10^3/ul (0-0.6); ABS Lymphocytes 0.8 10^3/ul (1.0-4.8); ABS Monocytes 0.5 10^3/ul (0-0.8); ABS Nucleated RBC 0 10^3/ul; Lymphocyte % 29.4 % (25-47); Nucleated Red Blood Cells % 0.3
[2018-07-01] MEDS: Potassium Chloride LIQUID* 20 MEQ PACKET PO SCH (08:59)
[2018-07-01] MEDS: Magnesium Oxide TAB* 400 MG PO SCH (09:00)
[2018-07-01] MEDS: Metoprolol Succinate XL TAB* 25 MG PO SCH ×2 (09:00→22:30)
[2018-07-01] MEDS: Docusate CAP* 100 MG PO SCH ×2 (09:01→22:30)
[2018-07-01] MEDS: Polyethylene Glycol 3350* 17 GM PACKET PO SCH (09:02)
--- NOTE | 2018-07-01 11:33 | CONS ---
CONSULTATION REPORT: DATE OF CONSULT: 07/01/18 REFERRING PHYSICIAN: Dr. Lux REASON FOR CONSULTATION: Anemia. HISTORY OF PRESENT ILLNESS: A 67-year-old male who initially presented on 06/26 with atrial fibrillation. He had been feeling poorly since February of 2018. He pulled a back muscle, and then essentially had to stop working for the summer. He had tried Motrin and then Tylenol for the pain and has had physical therapy for months. Since the back incident in addition to pain stopping him from working, he has been increasingly tired. Taking naps and having less ambition during the day even for activities that were not physically demanding. Several weeks prior to admission, he started to develop swelling in his ankles and then developed abdominal bloating. He went to [facility] on his initial visit with Dr. Bell. He was found to be in atrial fibrillation with a rapid ventricular response and sent to the emergency room. In the emergency room, he started to have an elevated BMP, in atrial fibrillation, and an echocardiogram showed normal LV function, trace mitral regurgitation, and moderate gradient across the mitral valve. He has been admitted, he has had rate control, and diuresis, and he is feeling better and better from a cardiac standpoint. His blood work on admission showed an anemia with hemoglobin of 9.8, decreased from the last CBC on 10/31/17 with hemoglobin of 11.9. He had an MCV of 110, increased from the elevated MCV of 104 in October of 2017. He was also noted to have a low white blood cell count of 4.4 on admission, going down to 2.8, also in October at 3.1 and a differential with slightly elevated monocytes that is predominantly neutrophils. Platelets have remained normal between 250 and 153 with a mean platelet volume of 7.1. He had evaluations with the hospitalist with B12 and iron, they were both elevated, B12 is greater 1450 and a ferritin of 774. The patient noted he had been taking Tylenol for several months prior admission approximately 3000 mg per day, but LFTs are normal bar a slightly ALT of 65, total bilirubin of 0.6, albumin of 3.2, he does have an elevated globulin of 4.1. Consultations for the persistent anemia. He denies fevers, chills, or night sweats, no skin rashes, joint pain, photosensitivity, he has not noted any swollen glands or lymph nodes. Weight had been relatively stable prior to admission, though with increasing fluid overload. PAST MEDICAL HISTORY: 1. Back pain as noted above. 2. History of mitral valvular disease. He had a mitral valvular repair in 2001. 3. 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 PAST SURGICAL HISTORY: 1. Mitral valve repair in 2001. 2. Retinal tear with eye surgery. FAMILY HISTORY: Both his parents lived into their 90s, no known hematologic disease in the family. 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 He does not smoke, drinks alcohol only occasionally. He is single. No children and lives alone. REVIEW OF SYSTEMS: As noted above. He has symptoms of failure, fatigue, abdominal girth, some decreased appetite. He is also noted muscle weakness since February, more rapidly than he would expect even with his decreased activity. Otherwise, 14-point review is negative. PHYSICAL EXAM: Temperature 97.8, BP 111/66, pulse 85, respirations 20. HEENT: Mucosa moist. No lesions. No cervical or supraclavicular lymphadenopathy. Lungs are clear. Heart: He seems in regular rhythm on my exam. S1, S2. He has mitral murmur at the tip of the heart. Abdomen: Hepatomegaly at 2 to 3 cm below costal line, but I could not feel the spleen, mildly edematous. Good bowel sounds, nontender. Neuro: No peripheral lymphadenopathy. Skin: No rashes or lesions. Extremities: Warm to the touch with good pulses. DIAGNOSTIC STUDIES/LAB DATA: Labs as noted above. He has a chest x-ray, but no abdominal imaging. ASSESSMENT AND PLAN: A 67-year-old male who presents with CHF, but is also found to have fairly profound microcytic anemia with concurrent neutropenia, normal platelet count. Differential diagnosis for low production macrocytic anemia includes dysplasia as most likely, he could have infiltrative disease ( hairy cell leukemia, multiple myeloma), I do not suspect drug-induced cytopenias as blood counts are normal in October when he was not taking any medication, it could be secondary to his supplement use, occult alcohol consumption is a common cause. He may have mild ethnic neutropenia and a high production anemia, which could include autoimmune hemolytic anemia, microangiopathic hemolysis. 1. We will check blood work today including reticulocyte count, Maximiliano, LDH, and uric acid, send SPEP. 2. If elevated reticulocyte count, we will address, we will evaluate further for hemolytic anemia. 3. If low production, we will need bone marrow biopsy. Discussed bone marrow biopsy with the patient including risks and side effects and he agreed to have the procedure done tomorrow if needed. 4. Given the concerns for fluid overload, we would hold transfusions unless hemoglobin under 8 or clearly symptomatic. 5. We will follow closely through the hospital stay. [id number]/[facility] #: [id number] ZEYAD
--- NOTE | 2018-07-01 12:17 | PROCNOTE ---
Hematology/Oncology Procedure Hematology/Oncology Procedure Note: Risks and benefits of procedure reviewed. Informed consent obtained. Time-out performed per protocol. Anesthesia, 2% lidocaine, approx. 4 mLs, administered with good effect. Bone marrow biopsy and aspirate performed to left posterior superior iliac crest /s obvious complications. Pt. tolerated reasonably well, however had difficulty laying flat during procedure. Minimal blood loss. No evidence for hematoma at this time. Unfortunately, no spicules seen on initial smear. Excellent core obtained.
[2018-07-01] MEDS ORDERED: fentaNYL* 50 MCG/ML 2 ML VIAL (100 MCG VIAL) ONE (14:55)
[2018-07-01] MEDS ORDERED: Flumazenil* 0.1 MG/ML 5 ML MDV ONE (14:56)
[2018-07-01] MEDS ORDERED: Naloxone* 0.4 MG/ML 1 ML VIAL ONE (14:56)
[2018-07-01] MEDS ORDERED: Lidocaine 2% VISCOUS* 15 ML UDC ONE (14:56)
[2018-07-01] MEDS ORDERED: Midazolam* 1 MG/ML 10 ML VIAL (10 MG) ONE (14:56)
--- NOTE | 2018-07-01 15:05 | PN ---
Subjective Date of Service: 07/01/18 Interval History: HOSPITALIST PROGRESS NOTE Patient seen and examined at bedside. Care reviewed and d/w Momo Shaw RN. He states he did not sleep well last night, waking up multiple times. Feels tired today. Dyspnea is improved. Family History: Unchanged from Admission Social History: Unchanged from Admission Past Medical History: Unchanged from Admission Objective Active Medications: Acetaminophen (Tylenol Tab*) 650 mg PO Q4H PRN PRN Reason: FEVER/PAIN Al Hydrox/Mg Hydrox/Simethicone (Maalox Plus*) 30 ml PO Q6H PRN PRN Reason: INDIGESTION Digoxin (Lanoxin Tab*) 0.25 mg PO 1700 [facility] Last Admin: 06/30/18 16:48 Dose: 0.25 mg Docusate Sodium (Colace Cap*) 100 mg PO BID [facility] Last Admin: 07/01/18 09:01 Dose: Not Given Enoxaparin Sodium (Lovenox(*)) 80 mg SUBCUT Q12H [facility] Last Admin: 07/01/18 06:17 Dose: 80 mg Magnesium Hydroxide (Milk Of Magnesia Liq*) 30 ml PO Q4H PRN PRN Reason: CONSTIPATION Last Admin: 06/30/18 08:24 Dose: 30 ml Magnesium Oxide (Magox 400 Tab*) 800 mg PO DAILY [facility] Last Admin: 07/01/18 09:00 Dose: 800 mg Metoprolol Succinate (Toprol Xl Tab*) 25 mg PO BID [facility] Last Admin: 07/01/18 09:00 Dose: 25 mg Polyethylene Glycol/Electrolytes (Miralax*) 17 gm PO DAILY [facility] Last Admin: 07/01/18 09:02 Dose: Not Given Potassium Chloride (Klor-Con Liquid*) 20 meq PO DAILY [facility] Last Admin: 07/01/18 08:59 Dose: 20 meq Warfarin Sodium (Coumadin Tab(*)) 5 mg PO DAILY@1700 [facility]; Protocol Last Admin: 06/30/18 16:47 Dose: 5 mg Zolpidem Tartrate (Ambien Tab*) 5 mg PO BEDTIME [facility] Last Admin: 06/30/18 21:53 Dose: 5 mg Vital Signs - 8 hr 07/01/18 07/01/18 07:29 08:00 Temperature 97.5 F Pulse Rate 76 Respiratory 16 16 Rate Blood Pressure 118/54 (mmHg) O2 Sat by Pulse 100 Oximetry Oxygen Devices in Use Now: None Appearance: Pleasant gentleman sitting up in bed in NAD. Eyes: No Scleral Icterus Ears/Nose/Mouth/Throat: Mucous Membranes Moist, - - Pale Neck: Trachea Midline Respiratory: Symmetrical Chest Expansion and Respiratory Effort, Clear to Auscultation Cardiovascular: - - Normal S1 and S2, irregularly irregular +murmur Abdominal: NL Sounds; No Tenderness; No Distention Extremities: - - 1+ LE edema Neurological: Alert and Oriented x 3, NL Muscle Strength and Tone Result Diagrams: 07/01/18 05:52 07/01/18 05:52 Assess/Plan/Problems-Billing Assessment: 67 yo M with h/o 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 fib with RVR and CHF - Patient Problems (1) Atrial fibrillation Comment: - with RVR on admission. - Off Cardizem drip, digoxin and metoprol. For possible SHAYLA CV later today. - Continue Enoxaparin and Warfarin. (2) CHF (congestive heart failure) Comment: - Acute diastolic CHF exacerbation due to A. fib and mitral stenosis - Responded well to Furosemide - will wait until after CV to see if further diuresis indicated. - Will need mitral valve surgery in the near future. (3) Anemia Comment: - With macrocytosis and mild leukopenia. - Normal B12, folate, iron. Ferritin is elevated. Stool occult blood is negative. - Hematology input appreciated - plan for BM biopsy. (4) LFT elevation Comment: - Secondary to vascular congestion associated with Afib and mitral stenosis - improving. (5) DVT prophylaxis Comment: - Lovenox/Coumadin. (6) Full code status Status and Disposition: inpatient
--- NOTE | 2018-07-01 16:23 | TEE ---
Patient: LEXIE ROMAN [facility] Rec#: [id number] : 1950 Date: 07/01/2018 Age: 67y Height: 182.88 cm / 72.0 in Weight: 84.37 kg / 186.0 lbs Sex: M BSA: 2.07 Room#: [facility] Type: Inpatient Referring: Rupesh Jonas MD Performing: Rupesh Jonas MD Reading: Rupesh Jonas MD Clinical Unit Educator: Viky Barbour RDCS Nurse: Jade Chavez Nurse: Evonne Deal RN CC: Wan Chester MD Transesophageal Echocardiogram Indication: Atrial fibrillation, MV disorder BP: 118/54 HR: 96 Rhythm: A-Fib Findings History: S/P MV repair, endocarditis, HLD. Technical Comments: The study quality is good. Left Ventricle: The left ventricular chamber size is normal. There is no left ventricular hypertrophy. There is normal left ventricular systolic function. The estimated ejection fraction is 55-60%. There is septal flattening of the interventricular septum consistent with right ventricular volume or pressure overload. The assessment of diastolic function is non-diagnostic. Left Atrium: The left atrium is severely dilated. Spontaneous echo contrast is present in the left atrium cavity and appendage. The left atrial appendage velocity is moderately reduced. No thrombus is visualized within the left atrium. A thrombus is visualized in the left atrial appendage. Right Ventricle: The right ventricle is severely dilated. The right ventricular global systolic function is moderately reduced. Right Atrium: The right atrial cavity size is severely dilated. A patent foramen ovale is not demonstrated by color Doppler. A bubble study was not performed due to the presence of a thrombus in the left atrial appendage. Aortic Valve: The aortic valve is trileaflet. The aortic valve leaflets are mildly thickened. There is no evidence of aortic regurgitation. There is no evidence of aortic stenosis. Mitral Valve: The mitral valve leaflets are moderately thickened. Mitral valve leaflet mobility is moderately restricted. There is a trace of mitral regurgitation. There is mild to moderate mitral stenosis. The mean gradient across the mitral valve is 8.473 mmHg. The peak gradient across the mitral valve is 18.57 mmHg. The pressure half time of the mitral valve is 114 msec. The mitral valve area, by pressure half time, is calculated at 1.9 cm2. Tricuspid Valve: The tricuspid valve leaflets are mildly thickened. There is severe tricuspid regurgitation. The right ventricular systolic pressure is estimated at 60 mmHg. There is evidence of severe pulmonary hypertension. There is no tricuspid stenosis. Pulmonic Valve: The pulmonic valve appears normal. There is a trace pulmonic regurgitation. There is no pulmonic stenosis. Pericardium: There is no significant pericardial effusion. Aorta: There is no dilatation of the ascending aorta. There is mild dilatation of the aortic root. There is plaque visualized in the transverse aorta. There is minimal atherosclerotic plaque in the visualized segments of the aorta. Pulmonary Artery: The main pulmonary artery appears normal. Venous: The bicaval view was obtained and appears normal. The pulmonary veins appear normal. 1 of 4 visualized. SHAYLA Procedures: All standard views were attempted within the limitations of patient tolerance and safety. History and physical as well as labs were reviewed. The patient was in a fasting state. Risks and benefits of the procedure, including alternatives, were discussed and written informed consent was obtained. The patient and/or their health care inside technical sales representative expressed understanding of the procedure, risks and benefits. Baseline and continuous monitoring of blood pressure, heart rate, pulse oximetry and heart rhythm was performed throughout the procedure. The appropriate time-out procedure was performed as per [facility] protocol. The patient was placed in the left lateral decubitus position. The patient's posterior pharynx was anesthetized with 20ml of 2% viscous lidocaine. The patient received IV Midazolam with a total dose of 4 mg. The patient received IV Fentanyl with a total dose of 50 mcg. An oral bite block was inserted for protection of oral dentition. The multiplane transesophageal echocardiogram probe was inserted through the posterior oropharynx and advanced into the esophagus without difficulty. Multiple 2D images were obtained of the heart and its related structures. Color flow Doppler was used for evaluation. Spectral Doppler was also used. The atrial septum was interrogated with color flow Doppler. At the conclusion of the procedure the probe was removed with continuous suction without complications. The patient tolerated the procedure with no apparent complications. Conclusions There is no left ventricular hypertrophy. There is normal left ventricular systolic function. The estimated ejection fraction is 55-60%. There is septal flattening of the interventricular septum consistent with right ventricular volume or pressure overload. The left atrium is severely dilated. A thrombus is visualized in the left atrial appendage. The right ventricular global systolic function is moderately reduced. There is no evidence of aortic stenosis. There is no evidence of aortic regurgitation. There is a trace of mitral regurgitation. There is mild to moderate mitral stenosis. The mean gradient across the mitral valve is 8.473 mmHg. The mitral valve area, by pressure half time, is calculated at 1.9 cm2. There is severe tricuspid regurgitation. The right ventricular systolic pressure is estimated at 60 mmHg. There is evidence of severe pulmonary hypertension. There is no significant pericardial effusion. Measurements Name Value Normal Range Aortic Annulus 1.9 cm (1.4 - 2.6) Ao root diameter (2D) 3.6 cm (2.1 - 3.5) Ascending Ao 3.2 cm (2.1 - 3.4) Name Value Normal Range AV Vmax 1.3 m/sec - AV VTI 28.14 cm - AV peak gradient 6.88 mmHg - AV mean gradient 3.97 mmHg - LVOT diameter 2 cm - LVOT Vmax 0.79 m/sec - LVOT VTI 16.5 cm - LVOT peak gradient 2.54 mmHg - LVOT mean gradient 1.41 mmHg - Name Value Normal Range MV Vmax 2.15 m/sec - MV VTI 52.46 cm - MV peak gradient 18.57 mmHg - MV mean gradient 8.47 mmHg - MV PHT 114 msec - MVA (PHT) 1.9 cm2 - MVA (continuity VTI) 1 cm2 - Name Value Normal Range TR Vmax 3.6 m/sec - TR peak gradient 52 mmHg - RAP 8 mmHg - RVSP 60 mmHg -
[2018-07-01] MEDS ORDERED: Warfarin TAB(*) 6 MG PO SCH (17:00)
[2018-07-01] MEDS: Digoxin TAB* 0.25 MG PO SCH (17:15)
[2018-07-01] MEDS: Zolpidem TAB* 5 MG PO SCH (22:36)
[2018-07-02 07:39] LABS: Hematocrit 26 % (42-52); Hemoglobin 8.8 g/dl (14.0-18.0); Mean Corpuscular HGB Conc 34 g/dl (31-36); Mean Corpuscular Hemoglobin 36 pg (27-31); Mean Corpuscular Volume 107 fL (80-94); Mean Platelet Volume 7.4 um3 (7.4-10.4); Platelet Count 153 10^3/ul (150-450); Red Blood Count 2.41 10^6/ul (4.00-5.40); Red Cell Distribution Width 20 % (10.5-15); White Blood Count 3.3 10^3/ul (3.5-10.8)
[2018-07-02 07:43] LABS: INR 1.32 (0.77-1.02)
[2018-07-02 07:51] LABS: EGFR Non-African American 74.5 (>60)
[2018-07-02] MEDS: Polyethylene Glycol 3350* 17 GM PACKET PO SCH (08:06)
[2018-07-02] MEDS: Potassium Chloride LIQUID* 20 MEQ PACKET PO SCH (08:07)
[2018-07-02] MEDS: Docusate CAP* 100 MG PO SCH ×2 (08:08→20:22)
[2018-07-02] MEDS: Magnesium Oxide TAB* 400 MG PO SCH (08:09)
[2018-07-02] MEDS: Enoxaparin(*) 80 MG/0.8 ML SYR SUBCUT SCH ×2 (08:10→20:22)
[2018-07-02 08:15] LABS: ABS Basophils 0 10^3/ul (0-0.2); ABS Eosinophils 0 10^3/ul (0-0.6); ABS Lymphocytes 0.9 10^3/ul (1.0-4.8); ABS Monocytes 0.5 10^3/ul (0-0.8); ABS Neutrophils 1.8 10^3/ul (1.5-7.7)
[2018-07-02] MEDS: Metoprolol Succinate XL TAB* 25 MG PO SCH ×2 (08:15→20:22)
[2018-07-02 08:18] LABS: ABS Basophils 0 10^3/ul (0-0.2); Monocytes % 13 % (0-7)
--- NOTE | 2018-07-02 15:48 | PN ---
Subjective Date of Service: 07/02/18 Interval History: HOSPITALIST PROGRESS NOTE Patient seen and examined at bedside. Care reviewed and d/w Momo Shaw RN. He feels okay today. Has some soreness on BM site. Family History: Unchanged from Admission Social History: Unchanged from Admission Past Medical History: Unchanged from Admission Objective Active Medications: Acetaminophen (Tylenol Tab*) 650 mg PO Q4H PRN PRN Reason: FEVER/PAIN Al Hydrox/Mg Hydrox/Simethicone (Maalox Plus*) 30 ml PO Q6H PRN PRN Reason: INDIGESTION Digoxin (Lanoxin Tab*) 0.25 mg PO 1700 [facility] Last Admin: 07/01/18 17:15 Dose: 0.25 mg Docusate Sodium (Colace Cap*) 100 mg PO BID [facility] Last Admin: 07/02/18 08:08 Dose: 100 mg Enoxaparin Sodium (Lovenox(*)) 80 mg SUBCUT Q12H [facility] Last Admin: 07/02/18 08:10 Dose: 80 mg Magnesium Hydroxide (Milk Of Magnesia Liq*) 30 ml PO Q4H PRN PRN Reason: CONSTIPATION Last Admin: 06/30/18 08:24 Dose: 30 ml Magnesium Oxide (Magox 400 Tab*) 800 mg PO DAILY [facility] Last Admin: 07/02/18 08:09 Dose: 800 mg Metoprolol Succinate (Toprol Xl Tab*) 25 mg PO BID [facility] Last Admin: 07/02/18 08:15 Dose: 25 mg Polyethylene Glycol/Electrolytes (Miralax*) 17 gm PO DAILY [facility] Last Admin: 07/02/18 08:06 Dose: 17 gm Potassium Chloride (Klor-Con Liquid*) 20 meq PO DAILY [facility] Last Admin: 07/02/18 08:07 Dose: 20 meq Warfarin Sodium (Coumadin Tab(*)) 7.5 mg PO DAILY@1700 [facility]; Protocol Zolpidem Tartrate (Ambien Tab*) 5 mg PO BEDTIME [facility] Last Admin: 07/01/18 22:36 Dose: Not Given Vital Signs - 8 hr 07/02/18 07/02/18 07/02/18 07:47 08:00 11:10 Temperature 97.6 F 97.8 F Pulse Rate 86 85 Respiratory 20 16 20 Rate Blood Pressure 125/70 111/51 (mmHg) O2 Sat by Pulse 99 99 Oximetry Oxygen Devices in Use Now: None Appearance: Pleasant gentleman sitting up in bed in NAD. Eyes: No Scleral Icterus Ears/Nose/Mouth/Throat: Mucous Membranes Moist Neck: Trachea Midline Respiratory: Symmetrical Chest Expansion and Respiratory Effort, Clear to Auscultation Cardiovascular: - - Normal S1 and S2, irregularly irregular Neurological: Alert and Oriented x 3, NL Muscle Strength and Tone Result Diagrams: 07/02/18 06:27 07/02/18 06:27 Assess/Plan/Problems-Billing Assessment: 67 yo M with h/o 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 fib with RVR and CHF - Patient Problems (1) Atrial fibrillation Comment: - with RVR on admission. - Off Cardizem drip, controlled with digoxin and metoprol. - SHAYLA showed LLA clot, so CV cancelled. - Continue Enoxaparin and Warfarin - plan for repeat SHAYLA in 4-6 weeks. (2) CHF (congestive heart failure) Comment: - Acute diastolic CHF exacerbation due to A. fib and mitral stenosis - Responded well to Furosemide IV - change to PO now. - Will need mitral valve surgery in the near future. (3) Anemia Comment: - With macrocytosis and mild leukopenia. - Normal B12, folate, iron. Ferritin is elevated. Stool occult blood is negative. - Hematology input appreciated - BM path pending. (4) LFT elevation Comment: - Secondary to vascular congestion associated with Afib and mitral stenosis - improving. (5) DVT prophylaxis Comment: - Lovenox/Coumadin. (6) Full code status Status and Disposition: inpatient. Possible d/c in AM.
[2018-07-02] MEDS ORDERED: Sodium Phosphate ADULT ENEMA* 118 ml bottle PR PRN (16:10)
[2018-07-02] MEDS ORDERED: Bisacodyl SUPP* 10 MG SUPP PR PRN (16:10)
[2018-07-02] MEDS: Warfarin TAB(*) 7.5 MG PO SCH (17:33)
[2018-07-02] MEDS: Digoxin TAB* 0.25 MG PO SCH (17:33)
[2018-07-02] MEDS: Zolpidem TAB* 5 MG PO SCH (20:25)
[2018-07-02] MEDS ORDERED: HYDROmorphone INJ1* 1 MG/ML SYRINGE IV ONE (22:55)
[2018-07-03] MEDS: Magnesium Hydroxide LIQ* 30 ML UDC PO PRN ×2 (06:57→14:35)
[2018-07-03] MEDS: Enoxaparin(*) 80 MG/0.8 ML SYR SUBCUT SCH ×2 (06:57→17:15)
[2018-07-03] MEDS: Metoprolol Succinate XL TAB* 25 MG PO SCH ×2 (09:02→21:28)
[2018-07-03] MEDS: Magnesium Oxide TAB* 400 MG PO SCH (09:02)
[2018-07-03] MEDS: Docusate CAP* 100 MG PO SCH ×2 (09:03→21:31)
[2018-07-03] MEDS: Potassium Chloride LIQUID* 20 MEQ PACKET PO SCH (09:03)
[2018-07-03] MEDS: Furosemide TAB* 20 MG PO SCH (09:03)
[2018-07-03] MEDS: Polyethylene Glycol 3350* 17 GM PACKET PO SCH (09:04)
[2018-07-03] MEDS: oxyCODONE TAB* 5 MG TAB PO PRN ×2 (09:16→15:30)
--- NOTE | 2018-07-03 10:43 | PN ---
Progress Note - Progress Note Date of Service: 07/03/18 SOAP: Subjective: significant left hip and buttock pain. yesterday was ambulatory but overnight pain so bad he could not sleep and today does not feel that he can walk from the pain. Objective: Vital Signs Temp Pulse Resp BP Pulse Ox 97.9 F 84 20 136/53 100 07/03/18 07:37 07/03/18 07:37 07/03/18 09:16 07/03/18 07:37 07/03/18 04:12 sitting on edge of bed, uncomfortable appearing perr eomi op moist irr irr CTA bl soft abd 2+ LE edema TTP over lateral left hip NOT over biopsy site, limited ROM 2/2 pain bone marrow bx: 90% involvement with plasma cell population SPEP pending Assessment: 67 yo M w progressive anemia admitted with afib w RVR and now found to have a diagnosis of multiple myeloma. We discussed this diagnosis at length. We discussed the palliative intents of treatment, and briefly average life expectancy. We discussed that there are a variety of treatment options, including oral therapies, that he will discuss further with Dr. Soto on discharge. I am concerned with the degree of left hip pain that he is having right now. It is not consistent with his bone marrow biopsy, and not in the correct location. I would like to start with plain films to see if there is any evidence of lytic lesions (he will need further evaluation systemically as an outpatient). I have discussed these recommendations with Dr. Gr and we will continue to follow
[2018-07-03] MEDS: Morphine VIAL* 4 MG/ML VIAL (1 ml vial) IV PRN ×2 (12:51→20:17)
--- NOTE | 2018-07-03 14:22 | RAD ---
Indication: Left hip pain, multiple myeloma. 2 views of left hip and an AP view of the pelvis demonstrates no fracture. Hip joint is intact. Pelvic ring is intact. IMPRESSION: No fracture of the left hip is noted.
--- NOTE | 2018-07-03 16:53 | PN ---
Subjective Date of Service: 07/03/18 Interval History: HOSPITALIST PROGRESS NOTE Patient seen and examined at bedside. He does not feel well today. C/o severe pain on bone marrow biopsy site, but when asked to point to pain area, it's on his hip. Was able to have a BM today. Family History: Unchanged from Admission Social History: Unchanged from Admission Past Medical History: Unchanged from Admission Objective Active Medications: Acetaminophen (Tylenol Tab*) 650 mg PO Q4H PRN PRN Reason: FEVER/PAIN Al Hydrox/Mg Hydrox/Simethicone (Maalox Plus*) 30 ml PO Q6H PRN PRN Reason: INDIGESTION Bisacodyl (Dulcolax Supp*) 10 mg ID DAILY PRN PRN Reason: CONSTIPATION Digoxin (Lanoxin Tab*) 0.25 mg PO 1700 [facility] Last Admin: 07/02/18 17:33 Dose: 0.25 mg Docusate Sodium (Colace Cap*) 100 mg PO BID [facility] Last Admin: 07/03/18 09:03 Dose: 100 mg Enoxaparin Sodium (Lovenox(*)) 80 mg SUBCUT Q12H [facility] Last Admin: 07/03/18 06:57 Dose: 80 mg Furosemide (Lasix Tab*) 20 mg PO DAILY [facility] Last Admin: 07/03/18 09:03 Dose: 20 mg Magnesium Hydroxide (Milk Of Magnesia Liq*) 30 ml PO Q4H PRN PRN Reason: CONSTIPATION Last Admin: 07/03/18 14:35 Dose: 30 ml Magnesium Oxide (Magox 400 Tab*) 800 mg PO DAILY [facility] Last Admin: 07/03/18 09:02 Dose: 800 mg Metoprolol Succinate (Toprol Xl Tab*) 25 mg PO BID [facility] Last Admin: 07/03/18 09:02 Dose: 25 mg Morphine Sulfate (Morphine Vial*) 2 mg IV Q2H PRN PRN Reason: SEVERE PAIN Last Admin: 07/03/18 12:51 Dose: 2 mg Oxycodone HCl (Roxycodone Tab*) 5 mg PO Q4H PRN PRN Reason: PAIN Last Admin: 07/03/18 15:30 Dose: 5 mg Polyethylene Glycol/Electrolytes (Miralax*) 17 gm PO DAILY [facility] Last Admin: 07/03/18 09:04 Dose: 17 gm Potassium Chloride (Klor-Con Liquid*) 20 meq PO DAILY [facility] Last Admin: 07/03/18 09:03 Dose: 20 meq Sodium Biphosphate/Sodium Phosphate (Fleet Enema*) 1 bottle ID DAILY PRN PRN Reason: CONSTIPATION Warfarin Sodium (Coumadin Tab(*)) 7.5 mg PO DAILY@1700 [facility]; Protocol Last Admin: 07/02/18 17:33 Dose: 7.5 mg Zolpidem Tartrate (Ambien Tab*) 5 mg PO BEDTIME [facility] Last Admin: 07/02/18 20:25 Dose: Not Given Vital Signs - 8 hr 07/03/18 07/03/18 07/03/18 09:16 11:51 12:48 Temperature 97.5 F Pulse Rate 94 Respiratory 20 20 20 Rate Blood Pressure 117/55 (mmHg) O2 Sat by Pulse 98 Oximetry 07/03/18 07/03/18 07/03/18 12:51 14:24 15:18 Temperature 97.9 F Pulse Rate 84 Respiratory 16 16 18 Rate Blood Pressure 125/46 (mmHg) O2 Sat by Pulse 99 Oximetry 07/03/18 15:30 Temperature Pulse Rate Respiratory 20 Rate Blood Pressure (mmHg) O2 Sat by Pulse Oximetry Oxygen Devices in Use Now: None Appearance: Pleasant gentleman sitting up in bed, appears comfortable. Eyes: No Scleral Icterus Ears/Nose/Mouth/Throat: Mucous Membranes Moist Neck: Trachea Midline Respiratory: Symmetrical Chest Expansion and Respiratory Effort, Clear to Auscultation Cardiovascular: RRR - Normal S1 and S2 Abdominal: NL Sounds; No Tenderness; No Distention Extremities: - - Pain on palpation of left hip Neurological: Alert and Oriented x 3, NL Muscle Strength and Tone Result Diagrams: 07/02/18 06:27 07/02/18 06:27 Assess/Plan/Problems-Billing Assessment: 67 yo M with h/o 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 fib with RVR and CHF - Patient Problems (1) Atrial fibrillation Comment: - with RVR on admission. - Controlled with digoxin and metoprol. - SHAYLA showed LLA clot, so CV cancelled. - Continue Enoxaparin and Warfarin - plan for repeat SHAYLA in 4-6 weeks. (2) CHF (congestive heart failure) Comment: - Acute diastolic CHF exacerbation due to A. fib and mitral stenosis - Responded well to Furosemide IV - change to PO now. - Plan for possible mitral valve surgery in the near future. (3) Anemia Comment: - With macrocytosis and mild leukopenia. - Normal B12, folate, iron. Ferritin is elevated. Stool occult blood is negative. - BM showed multiple myeloma - Heme/Onc input appreciated. - Plan to f/u with Dr. Soto 07/08 8AM. - Plan for bone survey. (4) LFT elevation Comment: - Secondary to vascular congestion associated with Afib and mitral stenosis - improving. (5) DVT prophylaxis Comment: - Lovenox/Coumadin. (6) Full code status Status and Disposition: inpatient.
[2018-07-03] MEDS: Digoxin TAB* 0.25 MG PO SCH (17:15)
[2018-07-03 17:34] LABS: INR 1.67 (0.77-1.02)
[2018-07-03] MEDS: Warfarin TAB(*) 7.5 MG PO SCH (17:50)
[2018-07-03] MEDS: Zolpidem TAB* 5 MG PO SCH (21:29)
[2018-07-04] MEDS: oxyCODONE TAB* 5 MG TAB PO PRN ×5 (00:52→21:18)
[2018-07-04] MEDS: Morphine VIAL* 4 MG/ML VIAL (1 ml vial) IV PRN ×4 (04:33→20:04)
[2018-07-04 06:25] LABS: INR 2.11 (0.77-1.02)
[2018-07-04] MEDS: Enoxaparin(*) 80 MG/0.8 ML SYR SUBCUT SCH ×2 (06:25→18:57)
--- NOTE | 2018-07-04 07:14 | RAD ---
INDICATION: Multiple myeloma. COMPARISON: Correlation is made with a prior chest x-ray study from March 08, 2017.. TECHNIQUE: Multiple views of the axial and appendicular bones were obtained. FINDINGS: A single AP view of the chest was obtained. The patient is status post sternotomy and cardiac valve replacement surgery. The heart appears mildly enlarged and unchanged. The lungs are clear. No significant focal osseous abnormality is seen. Skull: Frontal and lateral views of the skull was obtained. There is a lucency at the calvarial apex not typical of multiple myeloma although nonspecific. Cervical spine: AP and lateral views of the cervical spine was obtained. The vertebra are normal alignment. No significant focal osseous abnormality is seen. There is moderate to severe degenerative disc disease at the C5-C6 and C6-C7 levels. Ribs: 2 views of the ribs were obtained. There is a small lucent lesion overlying the anterior right first rib and clavicle. Dorsal spine: AP and lateral views of the dorsal spine were obtained. There are mild to moderate compression fractures of T9 and T12 vertebral bodies which appear new from the prior chest x-ray study. Humeri: AP views of both humeri were obtained. There are small lucent lesions in the proximal humeri. There is moderate to severe osteoarthritic change in the left glenohumeral joint and a large calcific deposit present along the inferior aspect of the joint. Forearm: AP views of both forearms were obtained. No focal osseous abnormalities are seen. Lumbar spine: A lateral view of the lumbar spine was obtained. No lucent lesions are seen. There is moderate to severe diffuse degenerative disc disease. Pelvis: An AP view of the pelvis is obtained. No significant focal osseous abnormality is seen. Femurs: AP views of both femurs were obtained. There are small lucent lesions in the proximal femoral neck regions. Lower legs: AP views of both lower legs are obtained. No significant focal side osseous abnormality is seen. IMPRESSION: 1. THERE IS A SMALL LUCENT LESION WHICH PROJECTS OVER THE ANTERIOR RIGHT FIRST RIB AND CLAVICLE. THERE ARE SMALL LUCENT LESIONS IN THE PROXIMAL HUMERI AND FEMURS NONSPECIFIC ALTHOUGH CONSISTENT WITH THE PATIENT'S HISTORY. 2. NEW COMPRESSION FRACTURES OF THE T9 AND T12 VERTEBRAL BODIES.
[2018-07-04] MEDS: Magnesium Oxide TAB* 400 MG PO SCH (08:26)
[2018-07-04] MEDS: Furosemide TAB* 20 MG PO SCH (08:26)
[2018-07-04] MEDS: Metoprolol Succinate XL TAB* 25 MG PO SCH ×2 (08:26→21:17)
[2018-07-04] MEDS: Docusate CAP* 100 MG PO SCH ×2 (08:26→21:17)
[2018-07-04] MEDS: Potassium Chloride LIQUID* 20 MEQ PACKET PO SCH (08:28)
[2018-07-04] MEDS: Polyethylene Glycol 3350* 17 GM PACKET PO SCH (08:29)
[2018-07-04 11:15] LABS: ABS Basophils 0 10^3/ul (0-0.2); ABS Eosinophils 0 10^3/ul (0-0.6); ABS Lymphocytes 0.8 10^3/ul (1.0-4.8); ABS Monocytes 0.6 10^3/ul (0-0.8); ABS Neutrophils 2.3 10^3/ul (1.5-7.7); Hematocrit 20 % (42-52); Hemoglobin 6.5 g/dl (14.0-18.0); Mean Corpuscular HGB Conc 33 g/dl (31-36); Mean Corpuscular Hemoglobin 36 pg (27-31); Mean Corpuscular Volume 109 fL (80-94); Mean Platelet Volume 7.9 um3 (7.4-10.4); Platelet Count 130 10^3/ul (150-450); Red Blood Count 1.79 10^6/ul (4.00-5.40); Red Cell Distribution Width 20 % (10.5-15); White Blood Count 3.8 10^3/ul (3.5-10.8)
[2018-07-04 11:25] LABS: EGFR Non-African American 63.4 (>60)
[2018-07-04 12:09] LABS: ABS Basophils 0 10^3/ul (0-0.2); ABS Neutrophils 2.4 10^3/ul (1.5-7.7); Monocytes % 10 % (0-7)
--- NOTE | 2018-07-04 13:38 | PN ---
Subjective Date of Service: 07/04/18 Interval History: HOSPITALIST PROGRESS NOTE Patient seen and examined at bedside. The pain on his BM site persists and he had now developed significant hematoma in the area. Denies chest pain or palpitations. Family History: Unchanged from Admission Social History: Unchanged from Admission Past Medical History: Unchanged from Admission Objective Active Medications: Acetaminophen (Tylenol Tab*) 650 mg PO Q4H PRN PRN Reason: FEVER/PAIN Al Hydrox/Mg Hydrox/Simethicone (Maalox Plus*) 30 ml PO Q6H PRN PRN Reason: INDIGESTION Bisacodyl (Dulcolax Supp*) 10 mg [place] DAILY PRN PRN Reason: CONSTIPATION Digoxin (Lanoxin Tab*) 0.25 mg PO 1700 [facility] Last Admin: 07/03/18 17:15 Dose: 0.25 mg Docusate Sodium (Colace Cap*) 100 mg PO BID [facility] Last Admin: 07/04/18 08:26 Dose: 100 mg Enoxaparin Sodium (Lovenox(*)) 80 mg SUBCUT Q12H [facility] Last Admin: 07/04/18 06:25 Dose: 80 mg Furosemide (Lasix Tab*) 20 mg PO DAILY [facility] Last Admin: 07/04/18 08:26 Dose: 20 mg Magnesium Hydroxide (Milk Of Magnesia Liq*) 30 ml PO Q4H PRN PRN Reason: CONSTIPATION Last Admin: 07/03/18 14:35 Dose: 30 ml Magnesium Oxide (Magox 400 Tab*) 800 mg PO DAILY [facility] Last Admin: 07/04/18 08:26 Dose: 800 mg Metoprolol Succinate (Toprol Xl Tab*) 25 mg PO BID [facility] Last Admin: 07/04/18 08:26 Dose: 25 mg Morphine Sulfate (Morphine Vial*) 2 mg IV Q2H PRN PRN Reason: SEVERE PAIN Last Admin: 07/04/18 08:26 Dose: 2 mg Oxycodone HCl (Roxycodone Tab*) 5 mg PO Q3H PRN PRN Reason: PAIN Last Admin: 07/04/18 11:12 Dose: 5 mg Polyethylene Glycol/Electrolytes (Miralax*) 17 gm PO DAILY [facility] Last Admin: 07/04/18 08:29 Dose: Not Given Potassium Chloride (Klor-Con Liquid*) 20 meq PO DAILY [facility] Last Admin: 09/28/18 08:28 Dose: 20 meq Sodium Biphosphate/Sodium Phosphate (Fleet Enema*) 1 bottle [place] DAILY PRN PRN Reason: CONSTIPATION Warfarin Sodium (Coumadin Tab(*)) 7.5 mg PO DAILY@1700 [facility]; Protocol Last Admin: 07/03/18 17:50 Dose: 7.5 mg Zolpidem Tartrate (Ambien Tab*) 5 mg PO BEDTIME [facility] Last Admin: 07/03/18 21:29 Dose: Not Given Vital Signs - 8 hr 07/04/18 07/04/18 07/04/18 06:00 07:33 08:26 Temperature 97.3 F Pulse Rate 48 Respiratory 12 16 18 Rate Blood Pressure 107/47 (mmHg) O2 Sat by Pulse 90 Oximetry 07/04/18 11:12 Temperature Pulse Rate Respiratory 20 Rate Blood Pressure (mmHg) O2 Sat by Pulse Oximetry Oxygen Devices in Use Now: None Appearance: Pleasant gentleman lying in bed, appears uncomfortable Eyes: No Scleral Icterus Ears/Nose/Mouth/Throat: Mucous Membranes Moist - and pale Neck: Trachea Midline Respiratory: Symmetrical Chest Expansion and Respiratory Effort, Clear to Auscultation Cardiovascular: - - Normal S1 and S2, irregular Skin: - - Large ecchymosis extending from BM biopsy site to left gluteus Neurological: Alert and Oriented x 3, NL Muscle Strength and Tone Result Diagrams: 07/04/18 06:08 07/04/18 06:08 Microbiology and Other Data: Microbiology 06/28/18 06:16 Stool Occult Blood (JASWINDER) - Final Stool Assess/Plan/Problems-Billing Assessment: 67 yo M with h/o 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 fib with RVR and CHF - Patient Problems (1) Atrial fibrillation Comment: - with RVR on admission. - Controlled with digoxin and metoprol. - SHAYLA showed LLA clot, so CV cancelled. - Continue Enoxaparin and Warfarin - plan for repeat SHAYLA in 4-6 weeks. (2) CHF (congestive heart failure) Comment: - Acute diastolic CHF exacerbation due to A. fib and mitral stenosis - Continue Furosemide. - Plan for possible mitral valve surgery in the near future. (3) Anemia Comment: - With macrocytosis and mild leukopenia. - Normal B12, folate, iron. Ferritin is elevated. Stool occult blood is negative. - BM showed multiple myeloma - Heme/Onc input appreciated. - Plan to f/u with Dr. Soto 07/08 8AM. - Hb down to 6.5 - will transfuse 2 PRBC. H/H drop now is secondary to large gluteal ecchymosis. (4) LFT elevation Comment: - Secondary to vascular congestion associated with Afib and mitral stenosis - improving. (5) Compression fracture Comment: - Bone survery shows T9 and T12 acute compression fractures - will d/w Neurosurgery. (6) Pulmonary hypertension Comment: - Echo showed moderate to severe pulmonary HTN, complicating his cardiac picture. (7) DVT prophylaxis Comment: - Lovenox/Coumadin. (8) Full code status Status and Disposition: inpatient.
[2018-07-04] MEDS ORDERED: Furosemide IV* 10 MG/ML 2 ML VIAL (20 MG) IV SLOW PU ONE (14:27)
[2018-07-04] MEDS: Digoxin TAB* 0.25 MG PO SCH (17:17)
[2018-07-04] MEDS: Warfarin TAB(*) 7.5 MG PO SCH (17:17)
--- NOTE | 2018-07-04 17:36 | PN ---
Progress Note - Progress Note Date of Service: 07/04/18 SOAP: Subjective: [Patient is complaining of significant pain in the L hip/buttock. His mobility is limited. Skeletal survey shows a few lesions in ribs, humeral heads and femur, but none to explain pelvic pain. He does have progressive ecchymosis over the buttock since his bone marrow biopsy] Objective: [ Laboratory Results - last 24 hr 07/01/18 07/03/18 07/04/18 12:18 17:00 06:08 WBC 3.8 RBC 1.79 L Hgb 6.5 L Hct 20 L MCV 109 H MCH 36 H MCHC 33 RDW 20 H Plt Count 130 L MPV 7.9 Neut % (Auto) Not Reportable Lymph % (Auto) Not Reportable [place] % (Auto) Not Reportable Eos % (Auto) Not Reportable Baso % (Auto) Not Reportable Absolute Neuts (auto) 2.3 Absolute Lymphs (auto) 0.8 L Absolute Monos (auto) 0.6 Absolute Eos (auto) 0 Absolute Basos (auto) 0 Absolute Nucleated RBC Not Reportable Neutrophils % 62 Lymphocytes % 27 Reactive Lymphs % 1 Monocytes % 10 H Eosinophils % 0 Basophils % 0 Nucleated RBC % Not Reportable Abs Neuts (Manual) 2.4 Abs Lymphs (Manual) 1.0 Abs Monocytes (Manual) 0.4 Absolute Eos (Manual) 0 Abs Basophils (Manual) 0 Normal RBC Morphology Not Reportable Polychromasia 1+ INR (Anticoag Therapy) 1.67 H Sodium Potassium Chloride Carbon Dioxide Anion Gap BUN Creatinine Est GFR ( Amer) Est GFR (Non-Af Amer) BUN/Creatinine Ratio Glucose Calcium Flow Intrp 2-8 Markers tnp Flow Intrp 9-15 Marker Flow Intrp 16+ Markers tnp Blood Type Antibody Screen Crossmatch 07/04/18 07/04/18 07/04/18 06:08 06:08 06:09 WBC RBC Hgb Hct MCV MCH MCHC RDW Plt Count MPV Neut % (Auto) Lymph % (Auto) [place] % (Auto) Eos % (Auto) Baso % (Auto) Absolute Neuts (auto) Absolute Lymphs (auto) Absolute Monos (auto) Absolute Eos (auto) Absolute Basos (auto) Absolute Nucleated RBC Neutrophils % Lymphocytes % Reactive Lymphs % Monocytes % Eosinophils % Basophils % Nucleated RBC % Abs Neuts (Manual) Abs Lymphs (Manual) Abs Monocytes (Manual) Absolute Eos (Manual) Abs Basophils (Manual) Normal RBC Morphology Polychromasia INR (Anticoag Therapy) 2.11 H Sodium 133 L Potassium 4.5 Chloride 101 Carbon Dioxide 27 Anion Gap 5 BUN 16 Creatinine 1.15 Est GFR ( Amer) 76.8 Est GFR (Non-Af Amer) 63.4 BUN/Creatinine Ratio 13.9 Glucose 98 Calcium 8.7 Flow Intrp 2-8 Markers Flow Intrp 9-15 Marker Flow Intrp 16+ Markers Blood Type A Positive Antibody Screen Negative Crossmatch See Detail Acetaminophen (Tylenol Tab*) 650 mg PO Q4H PRN PRN Reason: FEVER/PAIN Al Hydrox/Mg Hydrox/Simethicone (Maalox Plus*) 30 ml PO Q6H PRN PRN Reason: INDIGESTION Bisacodyl (Dulcolax Supp*) 10 mg [place] DAILY PRN PRN Reason: CONSTIPATION Digoxin (Lanoxin Tab*) 0.25 mg PO 1700 [facility] Last Admin: 07/04/18 17:17 Dose: 0.25 mg Docusate Sodium (Colace Cap*) 100 mg PO BID [facility] Last Admin: 07/04/18 08:26 Dose: 100 mg Enoxaparin Sodium (Lovenox(*)) 80 mg SUBCUT Q12H [facility] Last Admin: 07/04/18 06:25 Dose: 80 mg Furosemide (Lasix Tab*) 20 mg PO DAILY [facility] Last Admin: 07/04/18 08:26 Dose: 20 mg Magnesium Hydroxide (Milk Of Magnesia Liq*) 30 ml PO Q4H PRN PRN Reason: CONSTIPATION Last Admin: 07/03/18 14:35 Dose: 30 ml Magnesium Oxide (Magox 400 Tab*) 800 mg PO DAILY [facility] Last Admin: 07/04/18 08:26 Dose: 800 mg Metoprolol Succinate (Toprol Xl Tab*) 25 mg PO BID [facility] Last Admin: 07/04/18 08:26 Dose: 25 mg Morphine Sulfate (Morphine Vial*) 2 mg IV Q2H PRN PRN Reason: SEVERE PAIN Last Admin: 07/04/18 14:42 Dose: 2 mg Oxycodone HCl (Roxycodone Tab*) 5 mg PO Q3H PRN PRN Reason: PAIN Last Admin: 07/04/18 14:42 Dose: 5 mg Polyethylene Glycol/Electrolytes (Miralax*) 17 gm PO DAILY [facility] Last Admin: 07/04/18 08:29 Dose: Not Given Potassium Chloride (Klor-Con Liquid*) 20 meq PO DAILY [facility] Last Admin: 07/04/18 08:28 Dose: 20 meq Sodium Biphosphate/Sodium Phosphate (Fleet Enema*) 1 bottle [place] DAILY PRN PRN Reason: CONSTIPATION Warfarin Sodium (Coumadin Tab(*)) 7.5 mg PO DAILY@1700 [facility]; Protocol Last Admin: 07/04/18 17:17 Dose: 7.5 mg Zolpidem Tartrate (Ambien Tab*) 5 mg PO BEDTIME [facility] Last Admin: 07/03/18 21:29 Dose: Not Given Vital Signs: Temp Pulse Resp BP Pulse Ox 97.7 F 88 16 112/51 99 07/04/18 16:00 07/04/18 17:17 07/04/18 16:42 07/04/18 16:00 07/04/18 16:00 Exam: Gen: Mildly ill appearing 67 yo male, but in NAD CV: RRR Resp: lungs CTA Skin: large area of ecchymosis over L buttock with some induration] Assessment: [67 yo male with pancytopenia and new diagnosis of multiple myeloma, now with progression L hip/buttock pain likely due to hematoma as a complication of his bone marrow biopsy.] Plan: [1. Multiple myeloma - plan for follow up with Dr Soto next week to initiate therapy 2. Anemia - secondary myeloma, but some due to acute blood loss in to the hematoma - recommend transfusion of 1-2U, but patient is hesitant to consent at this time 3. Hematoma - complication of bone marrow biospy - recommend ice packs and pain control]
[2018-07-04] MEDS: Zolpidem TAB* 5 MG PO SCH (21:19)
[2018-07-05] MEDS: oxyCODONE TAB* 5 MG TAB PO PRN ×5 (02:17→18:00)
[2018-07-05 06:06] LABS: Hematocrit 23 % (42-52); Hemoglobin 7.6 g/dl (14.0-18.0); Mean Corpuscular HGB Conc 34 g/dl (31-36); Mean Corpuscular Hemoglobin 34 pg (27-31); Mean Corpuscular Volume 102 fL (80-94); Mean Platelet Volume 7.3 um3 (7.4-10.4); Platelet Count 127 10^3/ul (150-450); Red Blood Count 2.22 10^6/ul (4.00-5.40); Red Cell Distribution Width 23 % (10.5-15); White Blood Count 4.8 10^3/ul (3.5-10.8)
[2018-07-05] MEDS: Enoxaparin(*) 80 MG/0.8 ML SYR SUBCUT SCH (06:06)
[2018-07-05 06:14] LABS: INR 3.25 (0.77-1.02)
[2018-07-05 06:19] LABS: EGFR Non-African American 61.6 (>60)
[2018-07-05 06:30] LABS: ABS Basophils 0 10^3/ul (0-0.2); ABS Eosinophils 0.1 10^3/ul (0-0.6); ABS Lymphocytes 0.8 10^3/ul (1.0-4.8); ABS Monocytes 0.6 10^3/ul (0-0.8); ABS Neutrophils 3.3 10^3/ul (1.5-7.7); ABS Nucleated RBC 0 10^3/ul; Eosinophil % 1.2 % (0-6); Lymphocyte % 15.8 % (25-47); Nucleated Red Blood Cells % 0.2
[2018-07-05] MEDS: Potassium Chloride LIQUID* 20 MEQ PACKET PO SCH (09:18)
[2018-07-05] MEDS: Magnesium Hydroxide LIQ* 30 ML UDC PO PRN ×2 (09:19→14:42)
[2018-07-05] MEDS: Docusate CAP* 100 MG PO SCH ×2 (09:21→21:26)
[2018-07-05] MEDS: Furosemide TAB* 20 MG PO SCH (09:21)
[2018-07-05] MEDS: Magnesium Oxide TAB* 400 MG PO SCH (09:21)
[2018-07-05] MEDS: Metoprolol Succinate XL TAB* 25 MG PO SCH ×2 (09:22→21:26)
[2018-07-05] MEDS: Polyethylene Glycol 3350* 17 GM PACKET PO SCH (09:25)
--- NOTE | 2018-07-05 10:37 | RAD ---
HISTORY: Multiple myeloma, back pain COMPARISONS: None TECHNIQUE: Multiple contiguous axial CT scans were obtained of the thoracic and lumbar spine without intravenous contrast, with coronal and sagittal multiplanar reformations. FINDINGS: SPINAL CANAL: Evaluation of the central canal is limited on CT technique; however, there is no obvious canalicular mass or epidural hemorrhage. ALIGNMENT: The alignment is normal. VERTEBRAL BODIES: There is diffuse osteopenia. There is loss of vertebral body height at T10 and T12 without significant posterior retropulsion. There is associated sclerosis suggestive of healing response. There are sclerotic active endplate changes at L3-L4. There is an osteolytic mass centered within the sacrum that is expansile measuring approximately 4.8 x 8 x 7.5 cm in size. This extends into the neural foramina of the sacral nerve roots. JOINTS: There is costovertebral and facet osteoarthritis. MUSCULATURE: Unremarkable INTERVERTEBRAL DISCS: There is diffuse loss of intervertebral disc height throughout the spine. AXIAL IMAGES: On axial images, there is moderate narrowing of central canal at L4-L5 and mild narrowing at L3-L4. There is neural foraminal narrowing bilaterally at L3-L4, L4-L5, and L5-S1. SOFT TISSUES: There is a prosthetic mitral valve. There is biatrial and biventricular enlargement. There is a simple hepatic cyst. There is atherosclerosis of the aorta. OTHER: None IMPRESSION: 1. THERE IS AN EXPANSILE OSTEOLYTIC MASS CENTERED WITHIN THE SACRUM MEASURING UP TO 8 CM IN SIZE EXTENDING INTO THE NEURAL FORAMINA OF THE SACRUM CONSISTENT WITH THE GIVEN HISTORY OF MULTIPLE MYELOMA. 2. THERE IS DIFFUSE OSTEOPENIA. 3. THERE ARE SUBACUTE TO CHRONIC APPEARING COMPRESSION DEFORMITIES OF T10 AND T12, WITHOUT OSSEOUS RETROPULSION. 4. DEGENERATIVE DISC DISEASE AND OSTEOARTHRITIS DESCRIBED ABOVE. 5. CARDIOMEGALY
--- NOTE | 2018-07-05 15:17 | PN ---
Subjective Date of Service: 07/05/18 Interval History: HOSPITALIST PROGRESS NOTE Patient seen and examined at bedside. Care reviewed and d/w Momo Shaw RN. His pain is better controlled today, but he needs to take Oxycodone every 3h. Having BMs but requiring MOM. Family History: Unchanged from Admission Social History: Unchanged from Admission Past Medical History: Unchanged from Admission Objective Active Medications: Acetaminophen (Tylenol Tab*) 650 mg PO Q4H PRN PRN Reason: FEVER/PAIN Al Hydrox/Mg Hydrox/Simethicone (Maalox Plus*) 30 ml PO Q6H PRN PRN Reason: INDIGESTION Bisacodyl (Dulcolax Supp*) 10 mg [place] DAILY PRN PRN Reason: CONSTIPATION Digoxin (Lanoxin Tab*) 0.25 mg PO 1700 [facility] Last Admin: 07/04/18 17:17 Dose: 0.25 mg Docusate Sodium (Colace Cap*) 100 mg PO BID [facility] Last Admin: 07/05/18 09:21 Dose: 100 mg Furosemide (Lasix Tab*) 20 mg PO DAILY [facility] Last Admin: 07/05/18 09:21 Dose: 20 mg Magnesium Hydroxide (Milk Of Magnesia Liq*) 30 ml PO Q4H PRN PRN Reason: CONSTIPATION Last Admin: 07/05/18 14:42 Dose: 30 ml Magnesium Oxide (Magox 400 Tab*) 800 mg PO DAILY [facility] Last Admin: 07/05/18 09:21 Dose: 800 mg Metoprolol Succinate (Toprol Xl Tab*) 25 mg PO BID [facility] Last Admin: 07/05/18 09:22 Dose: 25 mg Morphine Sulfate (Morphine Vial*) 2 mg IV Q2H PRN PRN Reason: SEVERE PAIN Last Admin: 07/04/18 20:04 Dose: 2 mg Oxycodone HCl (Roxycodone Tab*) 5 mg PO Q3H PRN PRN Reason: PAIN Last Admin: 07/05/18 13:57 Dose: 5 mg Polyethylene Glycol/Electrolytes (Miralax*) 17 gm PO DAILY [facility] Last Admin: 07/05/18 09:25 Dose: Not Given Potassium Chloride (Klor-Con Liquid*) 20 meq PO DAILY [facility] Last Admin: 07/05/18 09:18 Dose: 20 meq Sodium Biphosphate/Sodium Phosphate (Fleet Enema*) 1 bottle [place] DAILY PRN PRN Reason: CONSTIPATION Warfarin Sodium (Coumadin Tab(*)) 6 mg PO DAILY@1700 [facility]; Protocol Zolpidem Tartrate (Ambien Tab*) 5 mg PO BEDTIME [facility] Last Admin: 07/04/18 21:19 Dose: 5 mg Vital Signs - 8 hr 07/05/18 07/05/18 07/05/18 07:26 08:05 09:22 Temperature 98.0 F Pulse Rate 72 Respiratory 16 16 16 Rate Blood Pressure 110/56 (mmHg) O2 Sat by Pulse 100 Oximetry 07/05/18 07/05/18 11:45 13:57 Temperature 98.3 F Pulse Rate 76 Respiratory 16 20 Rate Blood Pressure 122/56 (mmHg) O2 Sat by Pulse 99 Oximetry Oxygen Devices in Use Now: None Appearance: Pleasant gentleman lying in bed in NAD. 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 fib with RVR and CHF - Patient Problems (1) Anemia Comment: - With macrocytosis and mild leukopenia. - Normal B12, folate, iron. Ferritin is elevated. Stool occult blood is negative. - BM showed multiple myeloma - Heme/Onc input appreciated. - Plan to f/u with Dr. Soto 07/08 8AM. - Hb was down to 6.5 - transfused 2 PRBC. Hb up to 7.6. - H/H drop now is secondary to large gluteal ecchymosis. (2) Compression fracture Comment: - Bone survery shows T9 and T12 acute compression fractures. - D/w Neurosurgery - recommended CT thoracic and lumbar spines. (3) Atrial fibrillation Comment: - with RVR on admission. - Controlled with digoxin and metoprol. - SHAYLA showed LLA clot, so CV cancelled. - Continue Warfarin - plan for repeat SHAYLA in 4-6 weeks. (4) CHF (congestive heart failure) Comment: - Acute diastolic CHF exacerbation due to A. fib and mitral stenosis - Continue Furosemide. - Plan for possible mitral valve surgery in the near future. (5) Pulmonary hypertension Comment: - Echo showed moderate to severe pulmonary HTN, complicating his cardiac picture. (6) DVT prophylaxis Comment: - Warfarin. (7) Full code status Status and Disposition: inpatient.
[2018-07-05] MEDS ORDERED: Warfarin TAB(*) 6 MG PO SCH (17:00)
[2018-07-05] MEDS: Digoxin TAB* 0.25 MG PO SCH (17:06)
[2018-07-05 21:21] LABS: Hematocrit 22 % (42-52); Hemoglobin 7.3 g/dl (14.0-18.0)
[2018-07-05] MEDS: Zolpidem TAB* 5 MG PO SCH (21:26)
[2018-07-06] MEDS: oxyCODONE TAB* 5 MG TAB PO PRN ×4 (04:36→23:46)
[2018-07-06] MEDS: Acetaminophen TAB* 325 MG PO PRN ×2 (04:36→23:45)
--- NOTE | 2018-07-06 05:16 | CONS ---
AMENDED REPORT NOW INCLUDES DATE OF CONSULT - ESIGNED BEFORE ADJUSTMENT CONSULTATION NOTE: DATE OF CONSULT: 07/05/18 HISTORY OF PRESENT ILLNESS: The patient is a very pleasant 67-year-old gentleman, who presented to the emergency room with atrial fibrillation. The patient had been feeling sick since February 2018. The patient reported at that time he was pulling a log, and he started experiencing back pain that gradually improved. The patient was admitted to the hospital and was treated with medication. His rate was controlled and was feeling better. The patient also presented with anemia with hemoglobin of 9.8 and on workup of his anemia, he received a bone marrow biopsy. This was unfortunately followed by hematoma in the biopsy site, but the results of the biopsy revealed the diagnosis of multiple myeloma. The patient had a skeletal survey and the study revealed small lesions on the anterior right first rib and clavicle with also on proximal humerus and femur with compression fractures of T9 and T12 vertebral bodies. Requested to see the patient by Dr. Orona because of the x-ray findings. The patient reports that he has no other injuries as he has no history of known spine fracture. He reported of mild back pain, but his major problem is pain in the left buttock area in the area of his hematoma. The patient denies any weakness, numbness or tingling of extremities, although he has some discomfort in his left lower extremity because of his hematoma. After this, he is ambulating without significant difficulties. He tripped recently when after the bone marrow biopsy he has had some difficulty walking on his left lower extremity possibly antalgic. The patient denies any history of urinary or GI incontinence. 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 He is single and lives alone. 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 PAST SURGICAL HISTORY: Mitral valve repair, retinal tear repair. FAMILY HISTORY: Noncontributory. SOCIAL HISTORY: Tobacco: Negative. Alcohol: Occasionally. Recreational drug use: Negative. PHYSICAL EXAM: The patient is not in acute distress. He has no tenderness to palpation of the cervical, thoracic or lumbar spine. He has full range of motion of the cervical spine. He does have less hematoma on the left buttock area, at the area of his previous bone marrow biopsy. He is awake, alert, and oriented x3. His pupils are equal and reactive. Cranial nerves II through XII are grossly intact. Motor 4 to 5/5 in all extremities with the exception of the left lower extremity and hip flexion, which is 4-/5 possibly antalgic because of the local hematoma. The patient does have tenderness to palpation over the hematoma and decreased range of motion in the passive movement of his left hip. Sensory grossly intact to light touch. Deep tendon reflexes +1 bilaterally. No clonus. No Babinski. Butler's negative. Straight leg raise negative in the seated position. DIAGNOSTIC STUDIES/LAB DATA: Studies: The patient had a skeletal survey, which revealed multiple foci of lesions at the anterior right first rib and clavicle with the proximal humerus and femur with a new compression fracture at the T9 to T12 vertebral bodies. The patient had a CT scan of his thoracic spine that revealed subacute chronic appearing compressive deformity of T10 and T12 with mild canal compromise with degenerative disk disease and osteoarthritis. The patient also had a CT scan of his lumbar spine that revealed similar findings with multilevel degenerative disk disease. There is chronic appearance of T12 compressive deformity and the areas throughout his spine of mixed density in the vertebral bodies. There is also a large mass at the S2 level of the sacrum with lytic changes of the vertebral body and extension to the retroperitoneal space and possibly anterior canal with possible involvement of also the lower part of the sacrum. ASSESSMENT: The patient is a very pleasant 67-year-old gentleman with a history of mitral valve prolapse, status post mitral valve repair. The patient was diagnosed with atrial fibrillation and multiple myeloma with chronic T10 and T12 compression fractures and large sacral lesion. PLAN/RECOMMENDATIONS: The patient has multiple medical issues. Regarding his T10 and T12 compression fractures, I think that conservative treatment will be the best option as of now as it seem to represent chronic fractures as he has no tenderness or pain when he stands up. His sacral lesion is quite extensive and I think that he would benefit from an MRI of his whole axis to evaluate the possibility of multiple myeloma metastases and evaluate for epidural compression. Discussed with the patient the imaging findings as above as well as plan and discussed the possibility of nonsurgical and surgical treatment options. We will review the films of the MRI once obtained and formulate any further plan. Thank you for allowing us to participate in the care of this patient. Please do not hesitate to contact our office in case you have any further questions or concerns regarding the care of this patient. [id number]/[facility] #: [id number] MTDD
[2018-07-06 05:40] LABS: Hematocrit 21 % (42-52); Hemoglobin 7.2 g/dl (14.0-18.0)
[2018-07-06 05:45] LABS: INR 4.36 (0.77-1.02)
[2018-07-06 05:57] LABS: EGFR Non-African American 52.7 (>60)
[2018-07-06] MEDS: Docusate CAP* 100 MG PO SCH ×2 (09:23→20:43)
[2018-07-06] MEDS: Magnesium Oxide TAB* 400 MG PO SCH (09:23)
[2018-07-06] MEDS: Metoprolol Succinate XL TAB* 25 MG PO SCH ×2 (09:24→20:43)
[2018-07-06] MEDS: Polyethylene Glycol 3350* 17 GM PACKET PO SCH (09:25)
[2018-07-06] MEDS: Potassium Chloride LIQUID* 20 MEQ PACKET PO SCH (09:25)
--- NOTE | 2018-07-06 10:14 | PN ---
Progress Note - Progress Note Date of Service: 07/06/18 Note: No events ON. Patient in bathroom at time of visit. No new symptoms. MRI pending. Lorenzo Palmer MD
[2018-07-06] MEDS: Morphine VIAL* 4 MG/ML VIAL (1 ml vial) IV PRN ×3 (14:33→20:46)
[2018-07-06] MEDS: Digoxin TAB* 0.125 MG PO SCH (16:44)
--- NOTE | 2018-07-06 17:30 | PN ---
Subjective Date of Service: 07/06/18 Interval History: HOSPITALIST PROGRESS NOTE Patient seen and examined at bedside. Care reviewed and d/w Dottie Modi RN. As per RN, he was confused last night, but better this AM. Pain is controlled but flares up with movement. Denies chest pain, palpitations, or dyspnea. Family History: Unchanged from Admission Social History: Unchanged from Admission Past Medical History: Unchanged from Admission Objective Active Medications: Acetaminophen (Tylenol Tab*) 650 mg PO Q4H PRN PRN Reason: FEVER/PAIN Last Admin: 07/06/18 04:36 Dose: 650 mg Al Hydrox/Mg Hydrox/Simethicone (Maalox Plus*) 30 ml PO Q6H PRN PRN Reason: INDIGESTION Bisacodyl (Dulcolax Supp*) 10 mg [place] DAILY PRN PRN Reason: CONSTIPATION Digoxin (Lanoxin Tab*) 0.125 mg PO 1700 [facility] Last Admin: 07/06/18 16:44 Dose: 0.125 mg Docusate Sodium (Colace Cap*) 100 mg PO BID [facility] Last Admin: 07/06/18 09:23 Dose: 100 mg Magnesium Hydroxide (Milk Of Magnesia Liq*) 30 ml PO Q4H PRN PRN Reason: CONSTIPATION Last Admin: 07/05/18 14:42 Dose: 30 ml Magnesium Oxide (Magox 400 Tab*) 800 mg PO DAILY [facility] Last Admin: 07/06/18 09:23 Dose: 800 mg Metoprolol Succinate (Toprol Xl Tab*) 25 mg PO BID [facility] Last Admin: 07/06/18 09:24 Dose: 25 mg Morphine Sulfate (Morphine Vial*) 2 mg IV Q2H PRN PRN Reason: SEVERE PAIN Last Admin: 07/06/18 14:33 Dose: 2 mg Oxycodone HCl (Roxycodone Tab*) 5 mg PO Q3H PRN PRN Reason: PAIN Last Admin: 07/06/18 13:57 Dose: 5 mg Polyethylene Glycol/Electrolytes (Miralax*) 17 gm PO DAILY [facility] Last Admin: 07/06/18 09:25 Dose: 17 gm Potassium Chloride (Klor-Con Liquid*) 20 meq PO DAILY [facility] Last Admin: 07/06/18 09:25 Dose: 20 meq Sodium Biphosphate/Sodium Phosphate (Fleet Enema*) 1 bottle [place] DAILY PRN PRN Reason: CONSTIPATION Zolpidem Tartrate (Ambien Tab*) 5 mg PO BEDTIME [facility] Last Admin: 07/05/18 21:26 Dose: 5 mg Vital Signs - 8 hr 07/06/18 07/06/18 07/06/18 11:27 11:53 13:57 Temperature 97.4 F Pulse Rate 83 Respiratory 16 19 Rate Blood Pressure 104/44 102/54 (mmHg) O2 Sat by Pulse 100 Oximetry 07/06/18 07/06/18 07/06/18 14:33 15:23 16:44 Temperature 97.4 F Pulse Rate 78 72 Respiratory 17 16 Rate Blood Pressure 119/56 (mmHg) O2 Sat by Pulse 100 Oximetry 07/06/18 17:14 Temperature Pulse Rate Respiratory 16 Rate Blood Pressure (mmHg) O2 Sat by Pulse Oximetry Oxygen Devices in Use Now: None Appearance: Pleasant gentleman sitting up in bed in NAD Eyes: No Scleral Icterus Ears/Nose/Mouth/Throat: Mucous Membranes Moist Neck: Trachea Midline Respiratory: Symmetrical Chest Expansion and Respiratory Effort, Clear to Auscultation Cardiovascular: - - Normal S1 and S2, irregularly irregular Extremities: - - Left gluteal ecchymosis Neurological: Alert and Oriented x 3, NL Muscle Strength and Tone Result Diagrams: 07/06/18 05:34 07/06/18 05:34 Assess/Plan/Problems-Billing Assessment: 67 yo M with h/o 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 fib with RVR and CHF - Patient Problems (1) Anemia Comment: - With macrocytosis and mild leukopenia. - Normal B12, folate, iron. Ferritin is elevated. Stool occult blood is negative. - BM showed multiple myeloma - Heme/Onc input appreciated. - Plan to f/u with Dr. Soto 07/08 8AM. - Hb was down to 6.5 - transfused 2 PRBC. - H/H drop now is secondary to large gluteal ecchymosis. (2) Compression fracture Comment: - Bone survery shows T9 and T12 acute compression fractures. - D/w Neurosurgery - recommended MRI spine. (3) Atrial fibrillation Comment: - with RVR on admission. - Controlled with digoxin and metoprol. - SHAYLA showed LLA clot, so CV cancelled. - INR supratherapeutic today - hold Warfarin. - plan for repeat SHAYLA in 4-6 weeks. (4) CHF (congestive heart failure) Comment: - Acute diastolic CHF exacerbation due to A. fib and mitral stenosis - Appears to be well diuresed for now - hold Furosemide. - Plan for possible mitral valve surgery in the near future. (5) Pulmonary hypertension Comment: - Echo showed moderate to severe pulmonary HTN, complicating his cardiac picture. (6) DVT prophylaxis Comment: - Warfarin. (7) Full code status Status and Disposition: inpatient.
[2018-07-06] MEDS: Zolpidem TAB* 5 MG PO SCH (20:43)
[2018-07-06 21:32] LABS: Hematocrit 20 % (42-52); Hemoglobin 6.6 g/dl (14.0-18.0); Mean Corpuscular HGB Conc 33 g/dl (31-36); Mean Corpuscular Hemoglobin 35 pg (27-31); Mean Corpuscular Volume 104 fL (80-94); Mean Platelet Volume 7.6 um3 (7.4-10.4); Platelet Count 149 10^3/ul (150-450); Red Blood Count 1.92 10^6/ul (4.00-5.40); Red Cell Distribution Width 23 % (10.5-15); White Blood Count 5.2 10^3/ul (3.5-10.8)
--- NOTE | 2018-07-06 21:56 | PN ---
Hospitalist Progress Note Date of Service: 07/06/18 called to evaluate bruising on left leg, reports of increased bruising. Patient resting in bed c/o pain to left hip , large ecchymotic area noted to left hip extending to the thigh. Pedal pulses +2 , leg warm to touch. CBC and CK ordered.
[2018-07-07] MEDS: Morphine VIAL* 4 MG/ML VIAL (1 ml vial) IV PRN (04:02)
[2018-07-07 06:32] LABS: Hematocrit 22 % (42-52); Hemoglobin 7.3 g/dl (14.0-18.0)
[2018-07-07 06:51] LABS: EGFR Non-African American 54.6 (>60)
[2018-07-07 07:08] LABS: INR 3.43 (0.77-1.02)
[2018-07-07] MEDS: Acetaminophen TAB* 325 MG PO PRN (07:13)
[2018-07-07] MEDS: oxyCODONE TAB* 5 MG TAB PO PRN (07:14)
[2018-07-07] MEDS: Docusate CAP* 100 MG PO SCH ×2 (09:24→20:23)
[2018-07-07] MEDS: Magnesium Oxide TAB* 400 MG PO SCH (09:24)
[2018-07-07] MEDS: Metoprolol Succinate XL TAB* 25 MG PO SCH ×2 (09:24→20:23)
[2018-07-07] MEDS: Polyethylene Glycol 3350* 17 GM PACKET PO SCH (09:25)
--- NOTE | 2018-07-07 10:43 | PN ---
Progress Note - Progress Note Date of Service: 07/07/18 SOAP: Subjective: []Pain is sever. Can get up but very slowly, walking is difficult. Difficulty with mental status after increased pain medication over weekend. Coumadin held but INR lingers > 3.0. PmHx: Pulm HTN MS and atrial thrombosis compression fracture, back pain Sacral lesion Hematoma after bone marrow biopsy, 3 UPRBC Acetaminophen (Tylenol Tab*) 650 mg PO Q4H PRN PRN Reason: FEVER/PAIN Last Admin: 07/07/18 07:13 Dose: 650 mg Al Hydrox/Mg Hydrox/Simethicone (Maalox Plus*) 30 ml PO Q6H PRN PRN Reason: INDIGESTION Bisacodyl (Dulcolax Supp*) 10 mg [place] DAILY PRN PRN Reason: CONSTIPATION Digoxin (Lanoxin Tab*) 0.125 mg PO 1700 [facility] Last Admin: 07/06/18 16:44 Dose: 0.125 mg Docusate Sodium (Colace Cap*) 100 mg PO BID [facility] Last Admin: 07/07/18 09:24 Dose: 100 mg Magnesium Hydroxide (Milk Of Magnesia Liq*) 30 ml PO Q4H PRN PRN Reason: CONSTIPATION Last Admin: 07/05/18 14:42 Dose: 30 ml Magnesium Oxide (Magox 400 Tab*) 800 mg PO DAILY [facility] Last Admin: 07/07/18 09:24 Dose: 800 mg Metoprolol Succinate (Toprol Xl Tab*) 25 mg PO BID [facility] Last Admin: 07/07/18 09:24 Dose: 25 mg Morphine Sulfate (Morphine Vial*) 2 mg IV Q2H PRN PRN Reason: SEVERE PAIN Last Admin: 07/07/18 04:02 Dose: 2 mg Oxycodone HCl (Roxycodone Tab*) 5 mg PO Q3H PRN PRN Reason: PAIN Last Admin: 07/07/18 07:14 Dose: 5 mg Polyethylene Glycol/Electrolytes (Miralax*) 17 gm PO DAILY [facility] Last Admin: 07/07/18 09:25 Dose: Not Given Potassium Chloride (Klor-Con Liquid*) 20 meq PO DAILY [facility] Last Admin: 07/06/18 09:25 Dose: 20 meq Sodium Biphosphate/Sodium Phosphate (Fleet Enema*) 1 bottle [place] DAILY PRN PRN Reason: CONSTIPATION Zolpidem Tartrate (Ambien Tab*) 5 mg PO BEDTIME [facility] Last Admin: 07/06/18 20:43 Dose: Not Given Objective: [] Vital Signs Temp Pulse Resp BP Pulse Ox 97.4 F 74 16 113/55 93 07/07/18 07:36 07/07/18 07:36 07/07/18 08:00 07/07/18 07:36 07/07/18 07:36 Comfortable lying in bed, pain with movement. Conjunctiva pale. OM no lesions RRR HSM S1S2, not in a-fib on exam. CTA bl soft abd + Large hematoma left leg, to flank and down thigh. TTP over lateral left hip NOT over biopsy site, limited ROM 2/2 pain BMBx: 90% involvement with plasma cell population, reviewed with pathology M-spike 2.6, kappa 218 Cr 1.31 INR 3.34 Assessment: 67 yo M w progressive anemia admitted with afib w RVR and now found to have a diagnosis of multiple myeloma. Course complicated by large hematoma after bone marrow biopsy. 1. Hematoma. - Transfuse as needed, Hgb < 8.0 - Coumadin on hold, goal of INR 2.0- 2.5 - If continued bleeding may need brief reversal. - PT/OT, discussed with patient continue to move 2. Pain control. Try low dose Oxycontin 10 mg bid, continue prn 3. Myeloma. Discussed diagnosis, induction therapy and custodial prognosis. He may have induction therapy followed surgery for heart valve and then consideration for ASCT. Holding indiction at this time, can start as inpatient if needed. 4. Increased Cr. Check Uric Acid, for protien. 5. A-fib and MS. Will continue rate control and anticoagulation. High risk for CVA.
[2018-07-07] MEDS: Potassium Chloride LIQUID* 20 MEQ PACKET PO SCH (10:44)
[2018-07-07] MEDS ORDERED: Sodium Polystyrene ORAL.SOL* 15 GM/60 ML BTL PO ONE (10:57)
[2018-07-07] MEDS: oxyCODONE SR TAB(*) 10 MG TAB.SR PO SCH ×2 (11:23→20:23)
--- NOTE | 2018-07-07 13:33 | PN ---
Subjective Date of Service: 07/07/18 Interval History: HOSPITALIST PROGRESS NOTE Patient seen and examined at bedside. Care reviewed and d/w Moy Meyer RN. Left buttock pain persists. Hematoma has progressed down his left thigh and up his left flank. Family History: Unchanged from Admission Social History: Unchanged from Admission Past Medical History: Unchanged from Admission Objective Active Medications: Acetaminophen (Tylenol Tab*) 650 mg PO Q4H PRN PRN Reason: FEVER/PAIN Last Admin: 07/07/18 07:13 Dose: 650 mg Al Hydrox/Mg Hydrox/Simethicone (Maalox Plus*) 30 ml PO Q6H PRN PRN Reason: INDIGESTION Bisacodyl (Dulcolax Supp*) 10 mg [place] DAILY PRN PRN Reason: CONSTIPATION Digoxin (Lanoxin Tab*) 0.125 mg PO 1700 [facility] Last Admin: 07/06/18 16:44 Dose: 0.125 mg Docusate Sodium (Colace Cap*) 100 mg PO BID [facility] Last Admin: 07/07/18 09:24 Dose: 100 mg Magnesium Hydroxide (Milk Of Magnjenniffer Liq*) 30 ml PO Q4H PRN PRN Reason: CONSTIPATION Last Admin: 07/05/18 14:42 Dose: 30 ml Magnesium Oxide (Magox 400 Tab*) 800 mg PO DAILY [facility] Last Admin: 07/07/18 09:24 Dose: 800 mg Metoprolol Succinate (Toprol Xl Tab*) 25 mg PO BID [facility] Last Admin: 07/07/18 09:24 Dose: 25 mg Morphine Sulfate (Morphine Vial*) 2 mg IV Q2H PRN PRN Reason: SEVERE PAIN Last Admin: 07/07/18 04:02 Dose: 2 mg Oxycodone HCl (Roxycodone Tab*) 5 mg PO Q3H PRN PRN Reason: PAIN Last Admin: 07/07/18 07:14 Dose: 5 mg Oxycodone HCl (Oxycontin(*)) 10 mg PO BID [facility] Last Admin: 07/07/18 11:23 Dose: 10 mg Polyethylene Glycol/Electrolytes (Miralax*) 17 gm PO DAILY [facility] Last Admin: 07/07/18 09:25 Dose: Not Given Sodium Biphosphate/Sodium Phosphate (Fleet Enema*) 1 bottle [place] DAILY PRN PRN Reason: CONSTIPATION Zolpidem Tartrate (Ambien Tab*) 5 mg PO BEDTIME [facility] Last Admin: 07/06/18 20:43 Dose: Not Given Vital Signs - 8 hr 07/07/18 07/07/18 07/07/18 07:14 07:36 08:00 Temperature 97.4 F Pulse Rate 74 Respiratory 16 20 16 Rate Blood Pressure 113/55 (mmHg) O2 Sat by Pulse 93 Oximetry 07/07/18 07/07/18 11:23 11:42 Temperature Pulse Rate 64 Respiratory 16 Rate Blood Pressure (mmHg) O2 Sat by Pulse 93 Oximetry Oxygen Devices in Use Now: None Appearance: Pleasant gentleman lying in bed in NAD. Eyes: No Scleral Icterus Ears/Nose/Mouth/Throat: Mucous Membranes Moist Neck: Trachea Midline Respiratory: Symmetrical Chest Expansion and Respiratory Effort, Clear to Auscultation Cardiovascular: - - Normal S1 and S2, irregularly irregular Extremities: - - Large left gluteus area hematoma extending down to left thigh and up to left flank, tender on palpation Neurological: Alert and Oriented x 3, NL Muscle Strength and Tone Result Diagrams: 07/07/18 06:05 07/07/18 06:05 Assess/Plan/Problems-Billing Assessment: 67 yo M with h/o 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 fib with RVR and CHF - Patient Problems (1) Anemia Comment: - With macrocytosis and mild leukopenia. - Normal B12, folate, iron. Ferritin is elevated. Stool occult blood is negative. - BM showed multiple myeloma - Heme/Onc f/u appreciated. - Will transfuse 2 PRBCs again today. (2) Hematoma Comment: - Secondary to BM biopsy in the setting of Lovenox/Warfarin therapy. - Will transfuse 2 PRBC today. - INR is 3.4 - Warfarin on hold today. (3) Hyperkalemia Comment: - Mild - d/c potassium supplements and give low dose Kayexalate. (4) Compression fracture Comment: - Bone survery shows T9 and T12 acute compression fractures. - D/w Neurosurgery - recommended MRI cervical/thoracic/lumbar spine. (5) Atrial fibrillation Comment: - with RVR on admission. - Controlled with digoxin and metoprol. - SHAYLA showed LLA clot, so CV cancelled. - INR supratherapeutic today - hold Warfarin. - plan for repeat SHAYLA in 4-6 weeks. (6) CHF (congestive heart failure) Comment: - Acute diastolic CHF exacerbation due to A. fib and mitral stenosis - Appears to be well diuresed for now - hold Furosemide. - Plan for possible mitral valve surgery in the near future. (7) Pulmonary hypertension Comment: - Echo showed moderate to severe pulmonary HTN, complicating his cardiac picture. (8) DVT prophylaxis Comment: - Warfarin. (9) Full code status Status and Disposition: inpatient.
--- NOTE | 2018-07-07 15:08 | RAD ---
INDICATION: Scleral buckle in the LEFT eye. Assess for metallic orbital foreign bodies prior to MRI. COMPARISON: No relevant prior exams available on the [facility] for comparison. TECHNIQUE: AP and lateral views of the orbits were obtained. FINDINGS: No radiopaque foreign bodies are identified at the level of the orbits or visualized calvarium. Dental amalgam noted. IMPRESSION: No radiopaque orbital foreign bodies evident.
--- NOTE | 2018-07-07 16:18 | RAD ---
HISTORY: Multiple myeloma, vertebral fx COMPARISONS: CT dated July 05, 2018 TECHNIQUE: The following sequences were obtained of the cervical, thoracic, and lumbar spine: Sagittal T1 and T2-weighted images, sagittal STIR images, coronal T2-weighted images, and axial T1 and T2-weighted images. . FINDINGS: Localization is based on counting from C2 SPINAL CORD, CONUS, AND CAUDA EQUINA: The visualized spinal cord, conus, and cauda equina are normal in caliber, position, and signal intensity. ALIGNMENT: There is straightening with reversal of the normal cervical lordosis. There is grade 1 retrolisthesis of C5 on C6 and C6 on C7. There is grade 1 retrolisthesis of L2 on L3 and L3-L4 and L4 on L5. VERTEBRAL BODIES: There are chronic appearing compression deformities of T10 and T12 without osseous retropulsion. There is mild compression deformity of T9 with minimal osseous retropulsion without bone edema. JOINTS: There is uncovertebral, facet, and costovertebral osteoarthritis. There is a hemangioma of L3. There are Modic type II reactive end plate changes at L3-L4. MUSCULATURE: Unremarkable INTERVERTEBRAL DISCS: There is diffuse loss of intervertebral disc height and T2 signal throughout the spine. AXIAL IMAGES: There is moderate narrowing of the central canal at C5-C6 and C6-C7. There is severe bilateral neuroforaminal narrowing at these levels. There is moderate narrowing of the central canal at T9-T10. There is moderate bilateral neuroforaminal narrowing at T8-T9 and T9-T10 . There is severe bilateral neuroforaminal narrowing at L3-L4, L4-L5, and L5-S1 SOFT TISSUES: The visualized soft tissues of the chest and upper abdomen are unremarkable. OTHER: Again noted is expansile soft tissue within the sacrum corresponding to the osteolytic lesions noted on CT with extension into the sacral neural foramina bilaterally. IMPRESSION: 1. CHRONIC COMPRESSION DEFORMITIES OF T9, T10, AND T12. THERE IS MINIMAL OSSEOUS RETROPULSION AT T9. 2. THERE IS EXPANSILE SOFT TISSUE OF THE SACRUM CORRESPONDING TO THE OSTEOLYTIC LESIONS NOTED ON CT THE EXTENSIVE INTO THE SACRAL NEURAL FORAMINA. 3. DEGENERATIVE DISC DISEASE AND OSTEOARTHRITIS. 4. THERE IS MODERATE NARROWING OF THE CENTRAL CANAL AT C5-C6, C6-C7, AND T9-T10. 5. THERE IS MULTILEVEL NEUROFORAMINAL NARROWING DESCRIBED ABOVE.
[2018-07-07] MEDS: Digoxin TAB* 0.125 MG PO SCH (17:36)
--- NOTE | 2018-07-07 18:46 | PN ---
Progress Note - Progress Note Date of Service: 07/07/18 SOAP: Subjective: []No events ON. MRI was done today. RBC Tx Objective: []VSS AAOx3 , DUSTIN, CN II-XII grossly intact Motor 4-5/5 except LLE, 4-/5 possibly antalgic Sensory grossly intact to light touch. Assessment: []67 yo m MM, Afib chronic T9,10,12 fractures, Sacral lesion Plan: []Monitor VS, Neurochecks MRI revealed chronic T9,10,12 fractures, Sacral lesion. No contrast was given. Patient is reluctant to undergo MRI with contrast, concerned with possible adverse reactions to contrast. Treatment of MM per Dr Valdez. SINS score 3. Stable lesion. Repeat MRI with contrast if patient agrees to. Lorenzo Palmer MD
[2018-07-07] MEDS ORDERED: oxyCODONE SR TAB(*) 10 MG TAB.SR PO SCH (21:00)
[2018-07-07] MEDS: Zolpidem TAB* 5 MG PO SCH (22:55)
[2018-07-08 05:59] LABS: ABS Basophils 0 10^3/ul (0-0.2); ABS Eosinophils 0.1 10^3/ul (0-0.6); ABS Lymphocytes 0.6 10^3/ul (1.0-4.8); ABS Monocytes 0.7 10^3/ul (0-0.8); ABS Neutrophils 3.2 10^3/ul (1.5-7.7); ABS Nucleated RBC 0.1 10^3/ul; Eosinophil % 1.4 % (0-6); Hematocrit 25 % (42-52); Hemoglobin 8.4 g/dl (14.0-18.0); Lymphocyte % 13.5 % (25-47); Mean Corpuscular HGB Conc 33 g/dl (31-36); Mean Corpuscular Hemoglobin 33 pg (27-31); Mean Corpuscular Volume 100 fL (80-94); Mean Platelet Volume 7.9 um3 (7.4-10.4); Nucleated Red Blood Cells % 1.5; Platelet Count 156 10^3/ul (150-450); Red Blood Count 2.53 10^6/ul (4.00-5.40); Red Cell Distribution Width 22 % (10.5-15); White Blood Count 4.6 10^3/ul (3.5-10.8)
[2018-07-08 06:21] LABS: EGFR Non-African American 64.7 (>60)
[2018-07-08 09:10] LABS: INR 2.04 (0.77-1.02)
[2018-07-08] MEDS: Docusate CAP* 100 MG PO SCH ×3 (10:04→20:13)
[2018-07-08] MEDS: Polyethylene Glycol 3350* 17 GM PACKET PO SCH (10:04)
[2018-07-08] MEDS: oxyCODONE SR TAB(*) 10 MG TAB.SR PO SCH ×2 (10:07→22:04)
[2018-07-08] MEDS: Metoprolol Succinate XL TAB* 25 MG PO SCH ×2 (10:08→20:14)
[2018-07-08] MEDS: Magnesium Oxide TAB* 400 MG PO SCH (10:09)
[2018-07-08] MEDS: Magnesium Hydroxide LIQ* 30 ML UDC PO PRN (11:42)
--- NOTE | 2018-07-08 11:48 | PN ---
Progress Note - Progress Note Date of Service: 07/08/18 SOAP: Subjective: [Feels like pain is somewhat more manageable. He needs some help getting in and out of bed. He is becoming frustrated with his hospital stay. He has not required any IV analgesics in ~24h.] Objective: [ Laboratory Results - last 24 hr 07/01/18 07/05/18 07/06/18 12:18 05:20 21:04 WBC RBC Hgb Hct MCV MCH MCHC RDW Plt Count MPV Neut % (Auto) Lymph % (Auto) Whitman % (Auto) Eos % (Auto) Baso % (Auto) Absolute Neuts (auto) Absolute Lymphs (auto) Absolute Monos (auto) Absolute Eos (auto) Absolute Basos (auto) Absolute Nucleated RBC Nucleated RBC % Hem Pathologist Commnt INR (Anticoag Therapy) Sodium Potassium Chloride Carbon Dioxide Anion Gap BUN Creatinine Est GFR ( Amer) Est GFR (Non-Af Amer) BUN/Creatinine Ratio Glucose Calcium MDS Specimen Blood MDS Source Not Reportable MDS Refer Reason See comment MDS (FISH) Method See comment MDS Result Table See comment MDS Result Summary Abnormal MDS (FISH) Interpret See comment MDS Add Info Not Reportable MDS Disclaimer See comment MDS Released By See comment MDS (FISH) See comment Blood Type A Positive Antibody Screen Negative Crossmatch See Detail 07/08/18 07/08/18 07/08/18 05:39 05:39 08:47 WBC 4.6 RBC 2.53 L Hgb 8.4 L Hct 25 L MCV 100 H MCH 33 H MCHC 33 RDW 22 H Plt Count 156 MPV 7.9 Neut % (Auto) 69.7 Lymph % (Auto) 13.5 L Whitman % (Auto) 14.8 H Eos % (Auto) 1.4 Baso % (Auto) 0.6 Absolute Neuts (auto) 3.2 Absolute Lymphs (auto) 0.6 L Absolute Monos (auto) 0.7 Absolute Eos (auto) 0.1 Absolute Basos (auto) 0 Absolute Nucleated RBC 0.1 Nucleated RBC % 1.5 Hem Pathologist Commnt INR (Anticoag Therapy) 2.04 H Sodium 131 L Potassium 5.0 Chloride 99 L Carbon Dioxide 25 Anion Gap 7 BUN 23 Creatinine 1.13 Est GFR ( Amer) 78.3 Est GFR (Non-Af Amer) 64.7 BUN/Creatinine Ratio 20.4 H Glucose 100 Calcium 8.6 MDS Specimen MDS Source MDS Refer Reason MDS (FISH) Method MDS Result Table MDS Result Summary MDS (FISH) Interpret MDS Add Info MDS Disclaimer MDS Released By MDS (FISH) Blood Type Antibody Screen Crossmatch Vital Signs Temp Pulse Resp BP Pulse Ox 98.1 F 90 16 121/46 100 07/08/18 08:34 07/08/18 08:34 07/08/18 08:34 07/08/18 08:34 07/08/18 08:34 Acetaminophen (Tylenol Tab*) 650 mg PO Q4H PRN PRN Reason: FEVER/PAIN Last Admin: 07/07/18 07:13 Dose: 650 mg Al Hydrox/Mg Hydrox/Simethicone (Maalox Plus*) 30 ml PO Q6H PRN PRN Reason: INDIGESTION Bisacodyl (Dulcolax Supp*) 10 mg OH DAILY PRN PRN Reason: CONSTIPATION Digoxin (Lanoxin Tab*) 0.125 mg PO 1700 [facility] Last Admin: 07/07/18 17:36 Dose: 0.125 mg Docusate Sodium (Colace Cap*) 100 mg PO BID [facility] Last Admin: 07/08/18 10:04 Dose: Not Given Magnesium Hydroxide (Milk Of Magnesia Liq*) 30 ml PO Q4H PRN PRN Reason: CONSTIPATION Last Admin: 07/05/18 14:42 Dose: 30 ml Magnesium Oxide (Magox 400 Tab*) 800 mg PO DAILY [facility] Last Admin: 07/08/18 10:09 Dose: 800 mg Metoprolol Succinate (Toprol Xl Tab*) 25 mg PO BID [facility] Last Admin: 07/08/18 10:08 Dose: 25 mg Morphine Sulfate (Morphine Vial*) 2 mg IV Q2H PRN PRN Reason: SEVERE PAIN Last Admin: 07/07/18 04:02 Dose: 2 mg Oxycodone HCl (Roxycodone Tab*) 5 mg PO Q3H PRN PRN Reason: PAIN Last Admin: 07/07/18 07:14 Dose: 5 mg Oxycodone HCl (Oxycontin(*)) 10 mg PO BID [facility] Last Admin: 07/08/18 10:07 Dose: Not Given Polyethylene Glycol/Electrolytes (Miralax*) 17 gm PO DAILY [facility] Last Admin: 07/08/18 10:04 Dose: Not Given Sodium Biphosphate/Sodium Phosphate (Fleet Enema*) 1 bottle OH DAILY PRN PRN Reason: CONSTIPATION Warfarin Sodium (Coumadin Tab(*)) 5 mg PO DAILY@1700 [facility]; Protocol Zolpidem Tartrate (Ambien Tab*) 5 mg PO BEDTIME [facility] Last Admin: 07/07/18 22:55 Dose: 5 mg Exam: Gen: Relatively well appearing and in NAD HEENT: MMM CV: irregularly irregular rhythm, no m/r/g Resp: CTA, no w/c/r Abd: soft, nonTTP Ext: extensive ecchymosis of LUE Skin: Ecchymosis covering L flank to mid thigh along posterior/lateral L leg Assessment: 67 yo male initially admitted for afib with RVR with noted pancytopenia and new diagnosis of multiple myeloma complicated by development of a large hematoma at bone marrow biospy site and supratherapeutic INR Plan: [1. Hematoma - complication of bone marrow biospy and supratherapeutic INR - pain control improving, cont SR oxycodone and prn IR - request PT eval to formally assess functional ability - INR 2.0 today with Hgb stable after 3U PRBCs - cautiously resume Coumadin with INR goal 2-2.5 2. Anemia - acute on chronic secondary to acute blood loss into hematoma - chronic component related to MM and CRI 3. 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 Afib with atrial appendage thrombus and severe TR - anticoagulated with Coumadin, supratherapeutic to >4, now 2.0 after holding - resume Coumadin at 5 mg daily Dispo: pending PT eval, possible dc home tomorrow
[2018-07-08] MEDS ORDERED: Warfarin TAB(*) 5 MG PO SCH (17:00)
[2018-07-08] MEDS: Digoxin TAB* 0.125 MG PO SCH (17:33)
[2018-07-08] MEDS: oxyCODONE TAB* 5 MG TAB PO PRN (17:38)
[2018-07-08] MEDS: Zolpidem TAB* 5 MG PO SCH (22:11)
[2018-07-09 06:56] LABS: Hematocrit 25 % (42-52); Hemoglobin 8.5 g/dl (14.0-18.0); Mean Corpuscular HGB Conc 34 g/dl (31-36); Mean Corpuscular Hemoglobin 34 pg (27-31); Mean Corpuscular Volume 100 fL (80-94); Mean Platelet Volume 7.2 um3 (7.4-10.4); Platelet Count 167 10^3/ul (150-450); Red Blood Count 2.52 10^6/ul (4.00-5.40); Red Cell Distribution Width 22 % (10.5-15); White Blood Count 4.7 10^3/ul (3.5-10.8)
[2018-07-09 07:04] LABS: INR 1.56 (0.77-1.02)
[2018-07-09 07:33] LABS: EGFR Non-African American 72.8 (>60)
[2018-07-09 07:42] LABS: ABS Basophils 0 10^3/ul (0-0.2); ABS Eosinophils 0.1 10^3/ul (0-0.6); ABS Lymphocytes 0.8 10^3/ul (1.0-4.8); ABS Monocytes 0.7 10^3/ul (0-0.8); ABS Neutrophils 3.2 10^3/ul (1.5-7.7); ABS Nucleated RBC 0.1 10^3/ul; Eosinophil % 1.8 % (0-6); Lymphocyte % 16.2 % (25-47); Nucleated Red Blood Cells % 1.7
[2018-07-09] MEDS: Magnesium Oxide TAB* 400 MG PO SCH (09:15)
[2018-07-09] MEDS: Metoprolol Succinate XL TAB* 25 MG PO SCH (09:15)
[2018-07-09] MEDS: Docusate CAP* 100 MG PO SCH (09:15)
[2018-07-09] MEDS: Magnesium Hydroxide LIQ* 30 ML UDC PO PRN (09:15)
[2018-07-09] MEDS: Polyethylene Glycol 3350* 17 GM PACKET PO SCH (09:17)
[2018-07-09] MEDS: oxyCODONE SR TAB(*) 10 MG TAB.SR PO SCH (09:18)
[2018-07-09 11:57] VITALS: BP 112/51
--- NOTE | 2018-07-10 00:15 | DS ---
CC: Dr. Bell; Dr. Soto; Dr. Gorman * DISCHARGE SUMMARY: DATE OF ADMISSION: 06/26/18. DATE OF DISCHARGE: 07/09/18. PRIMARY CARE PROVIDER: Dr. Bell. CONSULTING CREDIT ASSESSMENT ANALYST: Dr. Gorman. CONSULTING BAR TURNER/ONCOLOGIST: Dr. Soto. DISCHARGING PROVIDER: MALIK Tai. ATTENDING PROVIDER: Oli Martinez MD * (DICTATED by MALIK TAI) PRIMARY DISCHARGE DIAGNOSES: 1. Atrial fibrillation with rapid ventricular rate and intra-atrial appendage thrombus. 2. Severe tricuspid regurgitation. 3. Macrocytic anemia with new diagnosis of multiple myeloma, complicated by acute blood loss anemia secondary to large left hip hematoma as a complication of his inpatient bone marrow biopsy. 4. Anticoagulation with Coumadin with a transient supratherapeutic INR. DISCHARGE MEDICATIONS: 1. Aspirin 81 mg p.o. daily. 2. Digoxin 0.125 mg p.o. daily. 3. Magnesium oxide 800 mg p.o. daily. 4. Metoprolol succinate 25 mg p.o. twice daily. 5. Oxycodone 5 mg p.o. q.3 hours as needed for pain. 6. Coumadin 5 mg p.o. daily. HOSPITAL IMAGIN. Chest x-ray, 06/26/18, shows cardiomegaly. Lungs are clear. 2. Hip and pelvis x-ray, 07/03/18, shows no fracture of the hip. 3. Osseous survey shows small lucent lesion, which projects over the anterior right first rib and clavicle. There are small lucent lesions in the proximal humeri and femurs, nonspecific, although consistent with the patient's history of multiple myeloma. New compression fractures of T9 and T12 vertebral bodies. 4. CT of the lumbar spine, 07/05/18, shows expansile osteolytic mass centered within the sacrum measuring up to 8 cm in size extending into the neural foramina of the sacrum consistent with a given history of multiple myeloma likely representing a plasmacytoma, most diffuse osteopenia, subacute and chronic appearing compression deformities of T10 and T12 without osseous retropulsion. 5. Thoracic spine CT, 07/05/18, shows same findings as above. 6. X-ray of the orbit, 07/07/18, shows no radiopaque objects. 7. Cervical, thoracic, and lumbar MRI, 07/07/18, shows chronic compression deformities at T9, T10, and T12 with minimal osseous retropulsion at T9. Again , there is an expansile soft tissue mass of the sacrum corresponding to the osteolytic lesions noted on the CT invading the neural foramina. There is moderate narrowing of the canal at C5-C6, C6-C7, and T9-T10. 8. Transthoracic echocardiogram, 06/26/18, shows normal left ventricular ejection fraction at 55% to 60% or septal flattening of the intraventricular septum consistent with right ventricular volume or pressure overload. Right ventricular systolic function is gezbjeak-[id number] reduced. There is btocunxh-fm-mzikaz mitral stenosis and severe tricuspid regurg, evidence of severe pulmonary hypertension with right ventricular systolic pressure estimated at 78 mmHg. 9. Transesophageal echocardiogram shows normal left ventricular ejection fraction of 55% to 60%. Thrombus is identified in the left atrial appendage. Left atrium is severely dilated. Right ventricular global systolic function is moderately reduced. There is trace mitral regurg, vxwh-um-ikjwoaqp mitral stenosis with severe tricuspid regurg, right ventricular systolic pressure estimated at 60 mmHg which qualified for severe pulmonary hypertension. HOSPITAL COURSE: This is a 67-year-old gentleman referred to the emergency department from his primary care provider with complaints of lower extremity edema and recent weight gain found to be in atrial fibrillation with rapid ventricular rate in his primary care provider's office. The patient was found again to be in atrial fibrillation with heart rates in the low 100s upon reaching the emergency department. He was initially anticoagulated and started on a diltiazem drip. He was seen in consultation by Dr. Gorman, who ordered an echocardiogram, which demonstrated initial concern for severe mitral stenosis and tricuspid regurg, which was also severe. A transesophageal echocardiogram was completed, which showed mitral stenosis being more [id number], but again severe tricuspid regurg with right ventricular dysfunction. The patient was eventually rate controlled with digoxin and metoprolol, and started on Coumadin as his transesophageal echocardiogram also demonstrated a thrombus within the left atrial appendage. The patient had no neurologic changes or history of prior CVA. Hematology and Oncology consultation was requested due to noted macrocytic anemia, which appeared to be progressive over the last 12 months. His hemoglobin in October 2017 was 11.9, and then measured at the time of admission at 9.8. His creatinine at the time of admission was 1.2, and was normal on 10/24 at 0.9. The patient's reticulocyte count was elevated, but not to the degree expected corresponding with the severity of his anemia. His vitamin B12 level was greater than 1450. TSH was normal at 2.45. Folate was also normal at greater than 20. SPEP was completed, which demonstrated M-Burton measured at 2.6 g/dl with elevated lambda light chains at 218. Bone marrow biopsy was also completed, which was also consistent with diagnosis of multiple myeloma. The patient unfortunately experienced delayed development of a large hematoma in the left posterior pelvic region following his bone marrow biopsy. His INR became supratherapeutic peaking at 4.36 and the patient had extensive bleeding into the left posterior pelvis requiring a transfusion of total of 3 units of packed red blood cells. The patient's Coumadin was held, but was not reversed due to the presence of atrial appendage thrombus, and INR drifted back down to 1.56 at the time of discharge and his Coumadin was resumed on 07/08/18, at a dose of 5 mg daily. The patient's last few days in the hospital was mostly surrounding pain management related to the hematoma, which was managed with oral and IV analgesics and at the time of discharge, he was requiring only a small amount of oral narcotic medications to adequately manage his pain and he is otherwise fully ambulatory. DISCHARGE PLAN AND DISPOSITION: The patient is being discharged to home. Again , as mentioned above, his INR is 1.56 on the day of discharge and is being discharged on Coumadin 5 mg daily. He received instructions to repeat an INR on 07/11/18. His anticoagulation will be managed by the office of Dr. Soto. Plan to initiate induction therapy for his multiple myeloma with Revlimid , Velcade, and dexamethasone, and the patient has been scheduled for a formal teaching session for this regimen on 07/14/18. The patient will also follow up with his primary care provider on 07/14/18. He also requires close cardiology followup and has been scheduled with Dr. Gorman on 07/31/18. Tentative plans were to attempt cardioversion after several weeks of anticoagulation. MALIK TAI [id number]/[facility] #: [id number] ZEYAD
== END 2018-07-09 13:30 | disposition home or self-care (01) | DRG 308 ==
LOC: ED 12:31 → MEDTELE 18:09 → OBSVTOIN 18:18
PROVIDERS: ADMIT Internal Medicine; ATTEND Internal Medicine Hematology & Oncology
PROC: B24BZZ4 Ultrasonography of Heart with Aorta, Transesophageal (ICD-10-PCS; 2018-07-01)
PROC: 07DR3ZX Extraction of Iliac Bone Marrow, Percutaneous Approach, Diagnostic (ICD-10-PCS; 2018-07-01)
PROC: 30233N1 Transfusion of Nonautologous Red Blood Cells into Peripheral Vein, Percutaneous Approach (ICD-10-PCS; principal; 2018-07-07)
DX: I48.91 Unspecified atrial fibrillation (principal); I50.33 Acute on chronic diastolic (congestive) heart failure; C90.00 Multiple myeloma not having achieved remission; M48.54XA Collapsed vertebra, not elsewhere classified, thoracic region, initial encounter for fracture; D62 Acute posthemorrhagic anemia; M96.840 Postprocedural hematoma of a musculoskeletal structure following a musculoskeletal system procedure; D61.818 Other pancytopenia; E78.5 Hyperlipidemia, unspecified; I34.0 Nonrheumatic mitral (valve) insufficiency; I51.3 Intracardiac thrombosis, not elsewhere classified; Y84.8 Other medical procedures as the cause of abnormal reaction of the patient, or of later complication, without mention of misadventure at the time of the procedure; Y82.8 Other medical devices associated with adverse incidents; Y92.238 Other place in hospital as the place of occurrence of the external cause; R79.1 Abnormal coagulation profile; I27.20 Pulmonary hypertension, unspecified; R74.0 Nonspecific elevation of levels of transaminase and lactic acid dehydrogenase [LDH]; D72.819 Decreased white blood cell count, unspecified; E87.5 Hyperkalemia; Z88.8 Allergy status to other drugs, medicaments and biological substances; Z81.8 Family history of other mental and behavioral disorders; Z79.01 Long term (current) use of anticoagulants; Z79.82 Long term (current) use of aspirin; Z83.3 Family history of diabetes mellitus; Z87.891 Personal history of nicotine dependence; Z72.89 Other problems related to lifestyle
CPT/HCPCS: 36415; 38222; 70030; 71045; 72128; 72131; 72141; 72146; 72148; 77075; 80048; 80053; 80061; 80162; 82232; 82272; 82550; 82553; 82607; 82728; 82746; 83540; 83550; 83605; 83735; 83880; 83883; 84155; 84165; 84443; 84450; 84460; 84484; 84550; 85014; 85018; 85025; 85027; 85045; 85060; 85097; 85610; 85652; 86140; 86334; 86850; 86880; 86900; 86901; 86922; 88184; 88185; 88187; 88188; 88189; 88271; 88275; 88305; 88311; 88313; 93005; 93306; 93308; 93312; 93325; 99156; 99157; 99223; 99232; 99233; 99239; 99283; A9270-GY; A9579; G8978-GP-CI; G8979-GP-CI; G8980-GP-CI; J1160; J1170; J1650; J1940; J2250; J2270; J2310; J3010; J3411; J3475; J3490; P9040

== ENCOUNTER 2019-06-24 16:47 | Inpatient (IN) | payer MEDICARE ==
[2019-06-24] MEDS ORDERED: NS 0.9% 1000 ML** 1,000 ML IV ONE (17:06)
[2019-06-24] MEDS ORDERED: Lorazepam PYXIS KEY PRN (17:29)
[2019-06-24] MEDS ORDERED: Pantoprazole IV* 40 MG IV SCH (18:30)
[2019-06-24] MEDS ORDERED: Phytonadione Oral Solution* 5 MG/25 ML UDC PO ONE (18:30)
[2019-06-24] MEDS: Acyclovir* 400 MG TAB PO SCH (22:10)
[2019-06-24] MEDS: Digoxin TAB* 0.125 MG PO SCH (22:11)
[2019-06-24] MEDS: Metoprolol Succinate XL TAB* 25 MG PO SCH (22:11)
[2019-06-24] MEDS: Morphine TAB Extended Release (*) 15 MG TAB.ER PO SCH (22:11)
[2019-06-24] MEDS ORDERED: Acetaminophen TAB* 325 MG PO PRN (22:20)
[2019-06-25 02:53] LABS: Urine Appearance Cloudy; Urine Bacteria Absent (Absent); Urine Bilirubin Negative (Negative); Urine Blood Negative (Negative); Urine Color Yellow; Urine Glucose Negative (Negative); Urine Ketones Negative (Negative); Urine Nitrite Negative (Negative); Urine Protein 1+(30 mg/dL) (Negative); Urine Red Blood Cell Absent (Absent); Urine Specific Gravity 1.017 (1.010-1.030); Urine Urobilinogen Negative (Negative); Urine White Blood Cell Absent (Absent)
[2019-06-25] MEDS: NS 0.9% 1000 ML** 1,000 ML IV SCH ×2 (05:53→13:26)
[2019-06-25 06:19] LABS: ABS Basophils 0.1 10^3/ul (0-0.2); ABS Eosinophils 0.1 10^3/ul (0-0.6); ABS Monocytes 2.8 10^3/ul (0-0.8); ABS Neutrophils 3.7 10^3/ul (1.5-7.7)
[2019-06-25 06:20] LABS: Hematocrit 26 % (42-52); Hemoglobin 8.8 g/dL (14.0-18.0); Mean Corpuscular HGB Conc 34 g/dL (31-36); Mean Corpuscular Hemoglobin 33 pg (27-31); Mean Corpuscular Volume 97 fL (80-94); Mean Platelet Volume 7.8 fL (7.4-10.4); Platelet Count 88 10^3/uL (150-450); Red Blood Count 2.65 10^6 /uL (4.18-5.48); Red Cell Distribution Width 16 % (10-15); White Blood Count 7.6 10^3/uL (3.5-10.8)
[2019-06-25 06:35] LABS: Albumin 3.2 g/dL (3.2-5.2); Albumin/Globulin Ratio 0.7 (1-3); BUN/Creatinine Ratio 13.1 (8-20); Calcium 8.3 mg/dL (8.6-10.3); EGFR African American 71.5 (>60); EGFR Non-African American 59.1 (>60); Globulin 4.9 g/dL (2-4); Potassium 4.3 mmol/L (3.5-5.0); Total Bilirubin 0.9 mg/dL (0.2-1.0); Total Protein 8.1 g/dL (6.4-8.9)
[2019-06-25 06:41] LABS: INR 6.2 (0.82-1.09)
[2019-06-25 06:54] LABS: Polychromasia 1+
[2019-06-25] MEDS ORDERED: Phytonadione Oral Solution* 5 MG/25 ML UDC PO ONE (07:51)
[2019-06-25] MEDS: Metoprolol Succinate XL TAB* 25 MG PO SCH ×2 (08:58→21:44)
[2019-06-25] MEDS: Acyclovir* 400 MG TAB PO SCH ×2 (08:58→21:47)
[2019-06-25] MEDS: Pantoprazole IV* 40 MG IV SCH ×2 (08:59→23:55)
[2019-06-25] MEDS ORDERED: METOPROLOL SUCCINATE 50 MG PO SCH (09:00)
[2019-06-25] MEDS: Morphine TAB Extended Release (*) 15 MG TAB.ER PO SCH ×2 (09:01→21:43)
--- NOTE | 2019-06-25 09:36 | PN ---
Progress Note - Progress Note Date of Service: 06/25/19 SOAP: Subjective: [Rey was admitted yesterday with GIB and supratherapeutic INR of 7.5. He reported 2 weeks of diarrhea which was black and with mucous. He has not had diarrhea now for almost 48h and reports bloating for the last week or so. No n/ v. Some abd discomfort, but no severe or sharp pain. Overnight he received IV protonix, IVF and oral vitamin K. He has been NPO overnight and has not had any BMs. ] Objective: [ Vital Signs: Temp Pulse Resp BP Pulse Ox 97.1 F 91 16 121/51 100 06/25/19 07:52 06/25/19 07:52 06/25/19 09:01 06/25/19 07:52 06/25/19 07:52 Acetaminophen (Tylenol Tab*) 650 mg PO Q6H PRN PRN Reason: PAIN-MILD/TEMP >/= 100.4 Last Admin: 06/24/19 22:53 Dose: 650 mg Acyclovir (Zovirax Tab*) 400 mg PO BID [facility] Last Admin: 06/25/19 08:58 Dose: 400 mg Digoxin (Lanoxin Tab*) 0.125 mg PO BEDTIME [facility] Last Admin: 06/24/19 22:11 Dose: 0.125 mg Sodium Chloride (Ns 0.9% 1000 Ml) 1,000 mls @ 150 mls/hr IV PER RATE [facility] Last Admin: 06/25/19 05:53 Dose: 150 mls/hr Lorazepam (Ativan Inj*) 0.5 mg IV PUSH Q4H PRN PRN Reason: Anxiety/insomnia/nausea Metoprolol Succinate (Toprol Xl Tab*) 25 mg PO BID [facility] Last Admin: 06/25/19 08:58 Dose: 25 mg Miscellaneous (Ativan Pyxis Irizarry) 1 ea N/A .ATIVAN IV IRIZARRY PRN PRN Reason: PYXIS IRIZARRY Morphine Sulfate (Ms Contin(*)) 15 mg PO BID [facility] Last Admin: 06/25/19 09:01 Dose: 15 mg Morphine Sulfate (Morphine 10 Mg/Ml Vial (1 Ml)) 5 mg IV Q6H PRN PRN Reason: PAIN - MODERATE Pantoprazole Sodium (Protonix Iv*) 40 mg IV BID [facility] Last Admin: 06/25/19 08:59 Dose: 40 mg Laboratory Results - last 24 hr 06/25/19 06/25/19 06/25/19 02:20 05:35 05:35 WBC 7.6 RBC 2.65 L Hgb 8.8 L Hct 26 L MCV 97 H MCH 33 H MCHC 34 RDW 16 H Plt Count 88 L MPV 7.8 Absolute Neuts (auto) 3.7 Absolute Lymphs (auto) 1.0 Absolute Monos (auto) 2.8 H Absolute Eos (auto) 0.1 Absolute Basos (auto) 0.1 Absolute Nucleated RBC 0.0 Immature Gran % 7.0 Neutrophils % 61.0 Band Neutrophils % 2.0 Lymphocytes % 18.0 Monocytes % 14.0 Metamyelocytes % 3.0 H Myelocytes % 2.0 H Normal RBC Morphology Not Reportable Polychromasia 1+ Hypochromasia 2+ INR (Anticoag Therapy) 6.20 H* Sodium Potassium Chloride Carbon Dioxide Anion Gap BUN Creatinine Est GFR ( Amer) Est GFR (Non-Af Amer) BUN/Creatinine Ratio Glucose Calcium Total Bilirubin AST ALT Alkaline Phosphatase Total Protein Albumin Globulin Albumin/Globulin Ratio Urine Color Yellow Urine Appearance Cloudy Urine pH 5.0 Ur Specific [place] 1.017 Urine Protein 1+(30 mg/dl) A Urine Ketones Negative Urine Blood Negative Urine Nitrate Negative Urine Bilirubin Negative Urine Urobilinogen Negative Ur Leukocyte Esterase Negative Urine WBC (Auto) Absent Urine RBC (Auto) Absent Urine Bacteria Absent Hyaline Casts Present A Urine Glucose Negative 06/25/19 05:35 WBC RBC Hgb Hct MCV MCH MCHC RDW Plt Count MPV Absolute Neuts (auto) Absolute Lymphs (auto) Absolute Monos (auto) Absolute Eos (auto) Absolute Basos (auto) Absolute Nucleated RBC Immature Gran % Neutrophils % Band Neutrophils % Lymphocytes % Monocytes % Metamyelocytes % Myelocytes % Normal RBC Morphology Polychromasia Hypochromasia INR (Anticoag Therapy) Sodium 128 L Potassium 4.3 Chloride 103 Carbon Dioxide 18 L Anion Gap 7 BUN 16 Creatinine 1.22 H Est GFR ( Amer) 71.5 Est GFR (Non-Af Amer) 59.1 BUN/Creatinine Ratio 13.1 Glucose 65 L Calcium 8.3 L Total Bilirubin 0.90 AST 40 H ALT 29 Alkaline Phosphatase 67 Total Protein 8.1 Albumin 3.2 Globulin 4.9 H Albumin/Globulin Ratio 0.7 L Urine Color Urine Appearance Urine pH Ur Specific [place] Urine Protein Urine Ketones Urine Blood Urine Nitrate Urine Bilirubin Urine Urobilinogen Ur Leukocyte Esterase Urine WBC (Auto) Urine RBC (Auto) Urine Bacteria Hyaline Casts Urine Glucose Exam: Gen: Chronically ill appearing, but in NAD HEENT: MMM CV: irregular rhythm, no murmus Resp: CTA, no w/c/r Abd: distended, but soft with hypoactive BS and TTP in RUQ and epigastric region Ext: no edema Skin: no bruising or other rash] Assessment: [This is a 68 yo male with MM s/p ASCT 02/19/19 who recently started maintenance revlimid anticoagulated with Coumadin for afib who presented with melena and supratherapeutic INR. He has now stopped stooling, no evidence of SBO on KUB.] Plan: [1. GIB - Hgb dropped ~1.5g overnight which may be at least partially dilutional - the fact that he has not passed any stools means that he is not likely bleeding at a significant rate - hemodynamically stable and no indication for transfusion at this time - cont IV protonix bid - cont to reverse INR - vit K repeated this am and repeat H&H and INR at noon if INR still >5 will give FFP - requested GI consult and spoke with Dr Barakat by phone, tentative plan for EGD tomorrow if INR <1.5 2. Supratherapeutic INR - remains elevated at 6.2 today after 10mg po vit K yesterday - his INR has been very difficult to regulate, was therapeutic just 5d ago - reports he took a single dose of amoxicillin in anticipation of a dental cleaning and believes he has been taking his Coumadin correctly - will continue to correct INR as discussed above - reconsider anticoagulation based on results of EGD 3. MM - hold Revlimid 4. Afib with h/o atrial appendage thrombus - rate controlled - hold anticoagulation at this time Dispo: transition to inpatient status as he continues to require acute care]
[2019-06-25 11:28] LABS: Hematocrit 27 % (42-52); Hemoglobin 9.2 g/dL (14.0-18.0)
[2019-06-25 11:58] LABS: INR 5.79 (0.82-1.09)
[2019-06-25] MEDS ORDERED: Iodixanol* (CONTRAST) 320 MG/ML 100 ML SDV IV ONE (19:01)
--- NOTE | 2019-06-25 21:12 | CONS ---
CC: MALIK Hogan * CONSULTATION REPORT: DATE OF SERVICE: 06/25/19 PRIMARY CARE PROVIDER: MALIK Hogan, Oncology. REQUESTING PHYSICIAN: MALIK Hogan. REASON FOR CONSULTATION: Melena, anemia. HISTORY OF PRESENT ILLNESS: This is a pleasant 68-year-old male with a history of multiple myeloma, AFib with atrial appendage thrombus, who presented to [facility] with a supratherapeutic INR and black tarry stool. He reports 2 weeks of what he called diarrhea and loose stool. They were black in nature, sticky like tar. Denies any jocelin hematochezia. He states that he has not had any diarrhea for the last 48 hours though and has actually had not had a bowel movement in the last 48 hours. He also admits to some abdominal distention over the last 2 weeks. He also admits to epigastric abdominal discomfort. Appetite has been down. The discomfort in the epigastric area can be sharp at times, 6/ 10, really unchanged by prandial association, unchanged by bowel movements. He denies any dysphagia, odynophagia, admits to chronic reflux over the years. Has never had an upper endoscopy. He did have a colonoscopy with Dr. Lange about a year ago with some benign polyps. He denies any Motrin, ibuprofen, or NSAID usage. He does take acetaminophen from time to time. He denies any history of this in the past. Admits to some subjective weight loss. Remainder of the 14-point review of systems is grossly negative except as described in the HPI. PAST MEDICAL HISTORY: Multiple myeloma, AFib, atrial appendage thrombus. PAST SURGICAL HISTORY: Colonoscopy in February of [address] Lange, revealing diverticulosis on the left and a rectal polyp that was removed. Mitral valve repair. MEDICATIONS: Home medications include: 1. Acetaminophen. 2. Acyclovir. 3. Digoxin. 4. Metoprolol. 5. Morphine. 6. Warfarin. 7. Revlimid. ALLERGIES: Include COLCHICINE. FAMILY HISTORY: No family history of GI cancer or IBD. SOCIAL HISTORY: No tobacco. Social alcohol use. No recreational drug use. REVIEW OF SYSTEMS: Remainder of the 14-point review of systems is grossly negative. PHYSICAL EXAM: Vital Signs: Blood pressure is 125/55, pulse 98, respiratory rate is 15, he is 99% on room air, temperature max was 97.5. In general, alert and oriented x3, in no acute distress. HEENT: Atraumatic, normocephalic. Pupils equal, round, reactive to light. Extraocular movements are intact. Conjunctivae are pink. Sclerae are anicteric. Cardiovascular: Regular rate and rhythm. S1, S2. Respiratory: Clear to auscultation bilaterally. Abdomen : Mildly distended. Tenderness to palpation along the epigastrium and periumbilical. Bowel sounds slightly hypoactive. No guarding or rebound. No appreciable shifting dullness. Extremities: No clubbing, no cyanosis, no edema. Neuro: Nonfocal. Psych: Appropriate mood and affect. DIAGNOSTIC STUDIES/LAB DATA: Hemoglobin is 8.8, platelet count is 88; INR on admission was 6.2, today is 5.79. Sodium 128, potassium is 4.3, BUN is 16, creatinine 1.22, total bilirubin 0.9, AST is 40, ALT is 29. He had an abdominal x- ray on 06/24/19, showed an air-fluid level within the stomach without any evidence of free air. ASSESSMENT AND PLAN: This is a 68-year-old male with epigastric pain, melena. 1. Acute blood loss anemia associated with supratherapeutic INR. Recommend H and H every 6 hours. Agree with IV PPI. Keep 2 units of PRBCs on hold if necessary. Hemodynamically, appears stable at this time. Recommend reversal of INR therapy when INR is around 1.5 range. We will plan on upper endoscopy to evaluate and potential therapy. I discussed the risks, benefits, and alternatives and the patient agrees to proceed. He had a recent colonoscopy last year without a clear source. Suspect yield on lower end would be low. There is no gross evidence of hematochezia from diverticulosis; however, an arterial venous malformation will be a possibility as well. 2. Epigastric pain. Given the significant abdominal distention along with his pain, we will plan on getting a CT of the abdomen and pelvis with p.o. and IV contrast to evaluate. 3. Multiple myeloma, on Revlimid per primary team. 4. Known atrial thrombus. We will plan on upper endoscopy once INR has been lowered to around 1.5 to evaluate and treat as necessary. 5. Atrial fibrillation. Per primary team. [id number]/[facility] #: [id number] [facility]
[2019-06-25] MEDS: Digoxin TAB* 0.125 MG PO SCH (21:45)
[2019-06-26 05:42] LABS: INR 2.68 (0.82-1.09)
[2019-06-26 05:44] LABS: Hematocrit 25 % (42-52); Hemoglobin 8.5 g/dL (14.0-18.0); Mean Corpuscular HGB Conc 34 g/dL (31-36); Mean Corpuscular Hemoglobin 33 pg (27-31); Mean Corpuscular Volume 98 fL (80-94); Platelet Count 79 10^3/uL (150-450); Red Blood Count 2.58 10^6 /uL (4.18-5.48); Red Cell Distribution Width 16 % (10-15); White Blood Count 6.3 10^3/uL (3.5-10.8)
[2019-06-26 05:54] LABS: Albumin 3.5 g/dL (3.2-5.2); Albumin/Globulin Ratio 0.7 (1-3); BUN/Creatinine Ratio 14.1 (8-20); Calcium 8.5 mg/dL (8.6-10.3); EGFR African American 67.6 (>60); EGFR Non-African American 55.9 (>60); Globulin 4.9 g/dL (2-4); Potassium 4.3 mmol/L (3.5-5.0); Total Bilirubin 1.2 mg/dL (0.2-1.0); Total Protein 8.4 g/dL (6.4-8.9)
[2019-06-26] MEDS: NS 0.9% 1000 ML** 1,000 ML IV SCH (05:54)
[2019-06-26 06:11] LABS: Polychromasia 1+
[2019-06-26 06:12] LABS: ABS Basophils 0.1 10^3/ul (0-0.2); ABS Eosinophils 0.1 10^3/ul (0-0.6); ABS Lymphocytes 0.8 10^3/ul (1.0-4.8); ABS Monocytes 1.7 10^3/ul (0-0.8); ABS Neutrophils 3.6 10^3/ul (1.5-7.7); Eosinophil % 1.2 %; Lymphocyte % 12.4 %; Nucleated Red Blood Cells % 0.3
[2019-06-26] MEDS: Morphine TAB Extended Release (*) 15 MG TAB.ER PO SCH ×2 (08:52→21:47)
[2019-06-26] MEDS: Pantoprazole IV* 40 MG IV SCH ×2 (08:52→21:47)
[2019-06-26] MEDS: Acyclovir* 400 MG TAB PO SCH ×2 (08:54→21:47)
[2019-06-26] MEDS: Metoprolol Succinate XL TAB* 25 MG PO SCH ×2 (08:54→21:47)
--- NOTE | 2019-06-26 10:37 | PN ---
Progress Note - Progress Note Date of Service: 06/26/19 SOAP: Subjective: [Feeling ok this am. Had a loose BM yesterday which was reported as brown but positive for blood, negative for Cdiff. Dr Barakat evaluated him yesterday and recommended a CT A/P which showed some gallbladder wall edema with small stones present as well as mild edema of the rectum c/w cholecystitis and/or proctitis. ] Objective: [ Vital Signs: Temp Pulse Resp BP Pulse Ox 97.8 F 90 18 144/68 99 06/26/19 07:26 06/26/19 07:26 06/26/19 10:05 06/26/19 07:26 06/26/19 07:26 Acetaminophen (Tylenol Tab*) 650 mg PO Q6H PRN PRN Reason: PAIN-MILD/TEMP >/= 100.4 Last Admin: 06/24/19 22:53 Dose: 650 mg Acyclovir (Zovirax Tab*) 400 mg PO BID [facility] Last Admin: 06/26/19 08:54 Dose: 400 mg Digoxin (Lanoxin Tab*) 0.125 mg PO BEDTIME [facility] Last Admin: 06/25/19 21:45 Dose: 0.125 mg Sodium Chloride (Ns 0.9% 1000 Ml) 1,000 mls @ 150 mls/hr IV PER RATE [facility] Last Admin: 06/26/19 05:54 Dose: 150 mls/hr Lorazepam (Ativan Inj*) 0.5 mg IV PUSH Q4H PRN PRN Reason: Anxiety/insomnia/nausea Metoprolol Succinate (Toprol Xl Tab*) 25 mg PO BID [facility] Last Admin: 06/26/19 08:54 Dose: 25 mg Miscellaneous (Ativan Pyxis Irizarry) 1 ea N/A .ATIVAN IV IRIZARRY PRN PRN Reason: PYXIS IRIZARRY Morphine Sulfate (Ms Contin(*)) 15 mg PO BID [facility] Last Admin: 06/26/19 08:52 Dose: 15 mg Morphine Sulfate (Morphine 10 Mg/Ml Vial (1 Ml)) 5 mg IV Q6H PRN PRN Reason: PAIN - MODERATE Pantoprazole Sodium (Protonix Iv*) 40 mg IV BID [facility] Last Admin: 06/26/19 08:52 Dose: 40 mg Laboratory Results - last 24 hr 06/25/19 06/25/19 06/25/19 11:12 11:12 12:30 WBC RBC Hgb 9.2 L Hct 27 L MCV MCH MCHC RDW Plt Count MPV Neut % (Auto) Lymph % (Auto) Blaine % (Auto) Eos % (Auto) Baso % (Auto) Absolute Neuts (auto) Absolute Lymphs (auto) Absolute Monos (auto) Absolute Eos (auto) Absolute Basos (auto) Absolute Nucleated RBC Immature Gran % Neutrophils % Band Neutrophils % Lymphocytes % Reactive Lymphs % Monocytes % Eosinophils % Basophils % Metamyelocytes % Myelocytes % Promyelocytes % Nucleated RBC % Nucleated RBCs/100 WBC Normal RBC Morphology Polychromasia Elliptocytes INR (Anticoag Therapy) 5.79 H* Sodium Potassium Chloride Carbon Dioxide Anion Gap BUN Creatinine Est GFR ( Amer) Est GFR (Non-Af Amer) BUN/Creatinine Ratio Glucose Calcium Total Bilirubin AST ALT Alkaline Phosphatase Total Protein Albumin Globulin Albumin/Globulin Ratio Blood Type A Positive Antibody Screen Negative 06/26/19 06/26/19 06/26/19 04:38 04:38 04:38 WBC 6.3 RBC 2.58 L Hgb 8.5 L Hct 25 L MCV 98 H MCH 33 H MCHC 34 RDW 16 H Plt Count 79 L MPV 8.0 Neut % (Auto) 57.6 Lymph % (Auto) 12.4 Blaine % (Auto) 27.4 Eos % (Auto) 1.2 Baso % (Auto) 1.4 Absolute Neuts (auto) 3.6 Absolute Lymphs (auto) 0.8 L Absolute Monos (auto) 1.7 H Absolute Eos (auto) 0.1 Absolute Basos (auto) 0.1 Absolute Nucleated RBC 0.0 Immature Gran % 6.0 Neutrophils % 53.0 Band Neutrophils % 1.0 Lymphocytes % 25.0 Reactive Lymphs % 4.0 Monocytes % 8.0 Eosinophils % 2.0 Basophils % 2.0 Metamyelocytes % 1.0 Myelocytes % 2.0 H Promyelocytes % 2.0 Nucleated RBC % 0.3 Nucleated RBCs/100 WBC 3.0 H Normal RBC Morphology Not Reportable Polychromasia 1+ Elliptocytes 1+ INR (Anticoag Therapy) 2.68 H Sodium 132 L Potassium 4.3 Chloride 104 Carbon Dioxide 16 L Anion Gap 12 H BUN 18 Creatinine 1.28 H Est GFR ( Amer) 67.6 Est GFR (Non-Af Amer) 55.9 BUN/Creatinine Ratio 14.1 Glucose 58 L Calcium 8.5 L Total Bilirubin 1.20 H AST 58 H ALT 45 Alkaline Phosphatase 68 Total Protein 8.4 Albumin 3.5 Globulin 4.9 H Albumin/Globulin Ratio 0.7 L Blood Type Antibody Screen Exam: Gen: Chronically ill appearing, but in NAD HEENT: MMM CV: irregular rhythm, faint murmur appreciated Resp: CTA, no w/c/r Abd: distended, but soft with hypoactive BS and TTP in RUQ and epigastric region Ext: no edema Skin: no bruising or other rash] Assessment: [This is a 68 yo male with MM s/p ASCT 02/19/19 who recently started maintenance revlimid anticoagulated with Coumadin for afib who presented with melena and supratherapeutic INR. He has now stopped stooling, no evidence of SBO on KUB.] Plan: [1. GIB - - Hgb is stable over the last 24 hours - hemodynamically stable and no indication for transfusion at this time - cont IV protonix bid - cont to reverse INR - given a total 15mg vit K and 3U FFP yesterday and will give an additional 2U this morning - appreciate consultation by Dr Barakat - tentative plan for EGD later today with goal of INR <1.5 2. Supratherapeutic INR - remains elevated at 2.6 today after vit K and FFP - his INR has been very difficult to regulate, was therapeutic just 5d prior to admission - will continue to correct INR as discussed above - reports he took a single dose of amoxicillin in anticipation of a dental cleaning and believes he has been taking his Coumadin correctly - reconsider anticoagulation based on results of EGD - spoke with Dr Gorman regarding anticoagulation recommendations and whether NOAC would be an option for him in the future - he reports he has valvular afib and a NOAC would not be indicated - he acknowledges that Coumadin is not an ideal agent if his INR has been so labile and now c/b a GIB - a Watchman procedure would be an option in the future as well as a means to discontinue anticoagulation - Dr Gorman recommended repeating an echocardiogram and discussing each of the risks and benefits of Coumadin, NOAC and Watchman with the patient 3. Possible cholecystitis - CT is suggestive of possible cholecystitis which is c/w his clinical picture of diarrhea, epigastric/RUQ discomfort and bloating - Tbili and transaminases are slightly elevated today, but have previously been nl, Alk Phos WNL - Ordered RUQ US to eval further for acute cholecysitis - if suspicious will start abx and request surgery consultation 4. MM - hold Revlimid 5. Afib with h/o atrial appendage thrombus and valvular heart disease - rate controlled - hold anticoagulation at this time - repeat echocardiogram, case discussed with Dr Gorman as reported above Dispo: EGD pending for later today along with RUQ US and echocardiogram, dc plan will depend on these results
[2019-06-26 12:43] LABS: Hematocrit 27 % (42-52); Hemoglobin 9.1 g/dL (14.0-18.0)
[2019-06-26 12:46] LABS: INR 2.42 (0.82-1.09)
--- NOTE | 2019-06-26 14:06 | ECHO ---
*[facility]* [place] [address] Fax #: [phone] Transthoracic Echocardiogram Patient: Eliot Hernandez : 1950 Study Date: 06/26/2019 Age: 68 Gender: M HR: 93 bpm Height: 70 in /177.8 cm BSA: 1.98 m^2 Weight: 176.6 lb /80.3 kg BMI: 25.4 kg/m^2 *Referring Physician: Rishi Cote *Reading Physician: * Jacob Thomas MD Indications: Mitral Valve Disorders. Atrial Fibrillation. History: Mitral valve disease. 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 Risk factors: Dyslipidemia. Multiple myeloma,anemai due to acute blood loss,melena,supratherapeutic INR. Conclusions Summary: - Left ventricle: The cavity size is below normal. Wall thickness is normal. Systolic function is normal. The estimated ejection fraction is 65-70%. - Right ventricle: The cavity size is severely dilated. Systolic function is reduced. - Ventricular septum: There is septal flattening of the interventricular septum consistent with RV volume or pressure overload. - Left atrium: The atrium is moderately dilated. - Right atrium: The atrium is severely dilated. - Mitral valve: There is an annuloplasty ring. The findings are consistent with moderate to severe stenosis. - Tricuspid valve: There is severe regurgitation. - Pulmonary arteries: Systolic pressure is severely increased. Recommendations: Previous transesophageal (which in general is better than transthoracic for mitral valve evaluation) echocardiogram 11/2018 suggested mild-moderate mitral stenosis s/p repair and mean gradient of 6 and peak gradient of 16.6 mmHg at the time. Gradients on this study are more consistent with the 09/2018 echocardiogram suggesting no worsening of mitral stenosis from previous studies. Changes could be related to hemoglobin levels and LVEF at time of acquisition. Previously 09/2018 the tricuspid regurgitation was moderate and PASP moderate-severely elevated. Study data: Transthoracic echocardiogram. Procedure: Transthoracic echocardiography was performed. Image quality was good. Complete 2D, spectral Doppler, and color flow Doppler. Patient status: Inpatient. Patient room number: 406. Rhythm: Atrial fibrillation. Findings Left ventricle: The cavity size is below normal. Wall thickness is normal. Systolic function is normal. The estimated ejection fraction is 65-70%. Wall motion is normal; there are no regional wall motion abnormalities. Left ventricular diastolic function parameters are indeterminate. Right ventricle: Well visualized. The cavity size is severely dilated. Systolic function is reduced. Ventricular septum: Well visualized. Ventricular septal wall motion has a postoperative appearance. There is septal flattening of the interventricular septum consistent with RV volume or pressure overload. Left atrium: Well visualized. The atrium is moderately dilated. Right atrium: Well visualized. The atrium is severely dilated. Atrial septum: Well visualized. Mitral valve: There is an annuloplasty ring. The findings are consistent with moderate to severe stenosis. There is trace regurgitation. Aortic valve: Well visualized. The valve is trileaflet. The leaflets are normal thickness. There is no evidence of stenosis. There is no significant regurgitation. Tricuspid valve: Well visualized. The leaflets are normal thickness. There is no evidence of stenosis. There is severe regurgitation. Pulmonic valve: Well visualized. The leaflets are normal thickness. There is no evidence of stenosis. There is no significant regurgitation. Aorta: The aorta is well visualized and normal size. The aortic arch appears normal. Pericardium: There is no pericardial effusion. No evidence of pleural fluid accumulation. Pulmonary arteries: Well visualized. Systolic pressure is severely increased. Systemic veins: Not well visualized. Due to c/o abdominal discomfort. Pulmonary veins: Visualization of the pulmonary venous anatomy is incomplete, but a significant abnormality is unlikely. Measurements Left ventricle Value Ref Aortic valve continued Value Ref ANTONY, LAX (L) 3.0 cm 4.2 - VTI, S 24.3 cm ----- 5.8 Mean grad, S 4.0 mm Hg ----- ESD, LAX (L) 2.3 cm 2.5 - Peak grad, S 8.0 mm Hg ----- 4.0 LVOT/AV, VTI ratio 0.68 ----- FS, LAX (L) 23 % 25 - 43 PW, ED, LAX 1.0 cm 0.6 - Mitral valve Value Ref 1.0 Peak E 2.76 m/sec ----- FS (L) 23 % 25 - 43 Decel time 353 ms ----- Mid-wall FS 8 % -------- PHT 129 ms ----- PW, ED 1.0 cm 0.6 - Mean grad, D 11.0 mm Hg ----- 1.0 Peak grad, D 29.0 mm Hg ----- PW/ID, ED 0.34 -------- MVA, PHT 1.7 cm^2 ----- LVOT Value Ref Pulmonic valve Value Ref Peak ramirez, S 0.85 m/sec -------- Peak v, S 0.49 m/sec ----- VTI, S 16.5 cm -------- Peak grad, S 1.0 mm Hg ----- Mean grad, S 1 mm Hg -------- Tricuspid valve Value Ref Ventricular septum Value Ref Peak E 3.7 m/sec ----- IVS, ED (H) 1.2 cm 0.6 - TR peak v (H) 4 m/sec <=2. 8 1.0 Peak RV-RA grad, S 64 mm Hg ----- Max TR ramirez 3.49 m/sec ----- Right ventricle Value Ref ANTONY, LAX 5.3 cm -------- Aortic root Value Ref ANTONY minor ax, A4C (H) 5.1 cm 1.9 - Root diam 3.6 cm <4.1 mid 3.5 Root max diam, ED 3.6 cm <4.1 Left atrium Value Ref Ascending aorta Value Ref ML dim, A4C 4.6 cm -------- AAo AP diam, S 3.0 cm ----- SI dim, A4C 6.6 cm -------- AAo AP diam/bsa, S 1.5 cm/m^2 ----- Right atrium Value Ref Aortic arch Value Ref SI dim, ES (H) 7.5 cm 3.4 - Arch diam 3.1 cm ----- 5.3 ML dim, ES, A4C (H) 5.3 cm 2.6 - Decending aorta Value Ref 4.4 Jumana peak ramirez 0.48 m/sec ----- SI dim, ES, A4C (H) 7.5 cm 3.4 - 5.3 SI dim/bsa, ES, A4C (H) 3.8 cm/m^2 1.8 - 3.0 Estimated RAP 8 mm Hg -------- Aortic valve Value Ref Mary diam, ED 2.0 cm -------- Mary diam/bsa, ED 1.0 cm/m^2 -------- Peak v, S 1.41 m/sec -------- Legend: (L) and (H) carlo values outside specified reference range. Prepared and electronically signed by Jacob Thomas MD 06/26/2019 14:05
[2019-06-26] MEDS ORDERED: fentaNYL* 50 MCG/ML 2 ML VIAL (100 MCG VIAL) ONE (16:36)
[2019-06-26] MEDS ORDERED: Midazolam* 1 MG/ML 10 ML VIAL (10 MG) ONE (16:36)
--- NOTE | 2019-06-26 17:48 | PN ---
Progress Note - Progress Note Date of Service: 06/26/19 Note: GI Procedure Note E: mild z line variable. no fresh or old blood. G: Normal. Scant bilious fluid D: Normal No fresh or old blood on entire exam Flex Sig to mid sigmoid: Good prep No fresh or old blood Mild proctitis, biopsied but not likely clinically significant Rec: Monitor Hgb, Likely bled from AVM/dieulofoy lesion when INR was supratheraputic. No evidence of active GIB at this time. PPI daily Agree with RUQ u/s. Elevated risk for anticoagulation given no source identified, but acceptable risk if needed for thrombus. Watch closely to keep in therapeutic range. Ok for full liquids today, advance as tolerated on 06/27 if stable. Call with questions. Adryan Barakat DO 06/26/19 [id number]
[2019-06-26] MEDS: Digoxin TAB* 0.125 MG PO SCH (21:50)
--- NOTE | 2019-06-26 22:58 | PRO ---
CC: Samy Soto MD, Agapito Bell MD * ESOPHAGOGASTRODUODENOSCOPY AND FLEXIBLE SIGMOIDOSCOPY REPORT: DATE OF PROCEDURE: 06/26/19 - ROOM #ICU-01 INDICATION FOR PROCEDURE: Melena, acute blood loss anemia and abnormal CT scan. PROCEDURE PERFORMED: Complete esophagogastroduodenoscopy and complete flexible sigmoidoscopy with biopsies. MEDICATION GIVEN: Includes 5 mg IV midazolam. DESCRIPTION OF PROCEDURE: After the EGD procedure, including the risks, benefits, and alternatives, the risks not limited to perforation, surgery, missed lesions, and/or were explained to the patient, written informed consent was obtained, IV medication was given, and a bite-block was placed between the teeth. An adult Olympus gastroscope was then inserted into the patient's oropharynx into the tubular esophagus. There was mild Z-line variability indicative of mild reflux, but not over a centimeter. No ulceration or evidence of fresh or old blood was visualized. The scope was advanced through the lower esophageal sphincter into the stomach. There was some bilious fluid within the stomach that was suctioned up. On retroflexion, no large hiatal hernia was appreciated. On antegrade views, the views were grossly normal without ulceration. The scope was advanced through the widely patent pylorus into the duodenal bulb, C-loop, and distal duodenum. These were normal in appearance without any jocelin ulceration or fresh or old blood. The scope was then removed from the patient. He tolerated the procedure well. He was then rotated and given additional IV sedation medication and a rectal exam was performed. The rectal exam was unremarkable. The adult Olympus gastroscope was then inserted into the patient's rectum and advanced to about the mid sigmoid colon. No fresh or old blood was apparent. There was some mild diverticulosis. On return to the rectum, there was some very scant proctitis, very nonspecific. This was biopsied. On retroflexion, grade 1 internal hemorrhoids were appreciated. The scope was then removed from the patient. He tolerated the procedure well. He returned to the recovery room in stable condition. IMPRESSION: 1. Complete esophagogastroduodenoscopy with biopsies. 2. Mild Z-line variability. No ulcerations or significant inflammation. 3. Otherwise unremarkable EGD. No fresh or old blood visualized on entire exam. 4. Flexible sigmoidoscopy to mid sigmoid. 5. No fresh or old blood. 6. Mild proctitis, very nonspecific, biopsied. RECOMMENDATIONS: At this point, he has not seen any melena for the last 3 to 4 days. This is likely due to correction of his INR. He likely had an AVM or Dieulafoy lesion that bled due to supratherapeutic INR or potential small bowel source. Given the stability of his hemoglobin and other comorbidities, I would advise against capsule endoscopy at this point unless further drop in hemoglobin on a chronic basis. I would have him be on a PPI daily for 3 months ' time. We will follow up on the results of the biopsies. I suspect this proctitis is not clinically significant based on the appearance. Finally, in regards to the CT scan, there was some pericholecystic fluid. Await results of the ultrasound and pending results, may consider antibiotics versus Surgery consult pending clinical course. [id number] #: [id number]
[2019-06-27] MEDS: NS 0.9% 1000 ML** 2,000 ML IV ONE ×2 (01:32→17:55)
[2019-06-27 06:20] LABS: ABS Basophils 0.1 10^3/ul (0-0.2); ABS Lymphocytes 0.8 10^3/ul (1.0-4.8); ABS Monocytes 2.4 10^3/ul (0-0.8); ABS Neutrophils 6.1 10^3/ul (1.5-7.7); ABS Nucleated RBC 0.1 10^3/ul; Hematocrit 26 % (42-52); Hemoglobin 8.6 g/dL (14.0-18.0); Mean Corpuscular HGB Conc 33 g/dL (31-36); Mean Corpuscular Hemoglobin 33 pg (27-31); Mean Corpuscular Volume 99 fL (80-94); Mean Platelet Volume 8.1 fL (7.4-10.4); Platelet Count 79 10^3/uL (150-450); Red Blood Count 2.64 10^6 /uL (4.18-5.48); Red Cell Distribution Width 17 % (10-15); White Blood Count 9.5 10^3/uL (3.5-10.8)
[2019-06-27 06:29] LABS: Albumin 3.5 g/dL (3.2-5.2); Albumin/Globulin Ratio 0.7 (1-3); BUN/Creatinine Ratio 14.6 (8-20); Calcium 8.6 mg/dL (8.6-10.3); EGFR African American 37.6 (>60); EGFR Non-African American 31.1 (>60); Globulin 5.2 g/dL (2-4); Total Bilirubin 1.6 mg/dL (0.2-1.0); Total Protein 8.7 g/dL (6.4-8.9)
[2019-06-27 06:31] LABS: Potassium 5.4 mmol/L (3.5-5.0)
[2019-06-27 07:01] LABS: Eosinophil % 0.3 %; Lymphocyte % 8.9 %; Nucleated Red Blood Cells % 0.9
[2019-06-27 07:08] LABS: Polychromasia 1+
[2019-06-27] MEDS: Metoprolol Succinate XL TAB* 25 MG PO SCH (07:53)
[2019-06-27] MEDS: Morphine TAB Extended Release (*) 15 MG TAB.ER PO SCH (07:53)
[2019-06-27] MEDS: Pantoprazole IV* 40 MG IV SCH ×2 (07:53→22:12)
[2019-06-27] MEDS: Acyclovir* 400 MG TAB PO SCH (07:53)
[2019-06-27] MEDS ORDERED: Zosyn per Pharmacy* NOTE FOLLOW UP SCH (09:00)
[2019-06-27] MEDS ORDERED: NS 0.9% IV ONE (09:15)
[2019-06-27] MEDS ORDERED: Piperacillin/Tazobac ADVAN(*) 3.375 GM in NS 0.9% 100 ML* 100 ML IVPB ONE (09:15)
--- NOTE | 2019-06-27 09:20 | PN ---
Progress Note - Progress Note Date of Service: 06/27/19 SOAP: Subjective: [Patient is more lethargic this morning. He denies any pain or other acute complaints.] Objective: [ Vital Signs: Temp Pulse Resp BP Pulse Ox 97.5 F 90 24 132/58 100 06/27/19 03:16 06/27/19 03:16 06/27/19 07:59 06/27/19 03:16 06/27/19 03:16 Laboratory Results - last 24 hr 06/25/19 06/26/19 06/26/19 12:30 04:38 12:22 WBC RBC Hgb Hct MCV MCH MCHC RDW Plt Count MPV Neut % (Auto) Lymph % (Auto) [place] % (Auto) Eos % (Auto) Baso % (Auto) Absolute Neuts (auto) Absolute Lymphs (auto) Absolute Monos (auto) Absolute Eos (auto) Absolute Basos (auto) Absolute Nucleated RBC Immature Gran % Neutrophils % Band Neutrophils % Lymphocytes % Reactive Lymphs % Monocytes % Eosinophils % Metamyelocytes % Myelocytes % Nucleated RBC % Normal RBC Morphology Polychromasia Macrocytosis Hem Pathologist Commnt INR (Anticoag Therapy) 2.42 H Sodium Potassium Chloride Carbon Dioxide Anion Gap BUN Creatinine Est GFR ( Amer) Est GFR (Non-Af Amer) BUN/Creatinine Ratio Glucose Calcium Total Bilirubin AST ALT Alkaline Phosphatase Total Protein Albumin Globulin Albumin/Globulin Ratio Blood Type A Positive Antibody Screen Negative 06/26/19 06/27/19 06/27/19 12:22 05:44 05:44 WBC 9.5 RBC 2.64 L Hgb 9.1 L 8.6 L Hct 27 L 26 L MCV 99 H MCH 33 H MCHC 33 RDW 17 H Plt Count 79 L MPV 8.1 Neut % (Auto) 64.4 Lymph % (Auto) 8.9 [place]field % (Auto) 25.5 Eos % (Auto) 0.3 Baso % (Auto) 0.9 Absolute Neuts (auto) 6.1 Absolute Lymphs (auto) 0.8 L Absolute Monos (auto) 2.4 H Absolute Eos (auto) 0.0 Absolute Basos (auto) 0.1 Absolute Nucleated RBC 0.1 Immature Gran % 13.0 H Neutrophils % 46.0 Band Neutrophils % 5.0 Lymphocytes % 25.0 Reactive Lymphs % 4.0 Monocytes % 11.0 Eosinophils % 1.0 Metamyelocytes % 7.0 H Myelocytes % 1.0 Nucleated RBC % 0.9 Normal RBC Morphology Not Reportable Polychromasia 1+ Macrocytosis 1+ Hem Pathologist Commnt INR (Anticoag Therapy) Sodium 134 L Potassium 5.4 H Chloride 104 Carbon Dioxide 10 L* Anion Gap 20 H BUN 31 H Creatinine 2.13 H Est GFR ( Amer) 37.6 Est GFR (Non-Af Amer) 31.1 BUN/Creatinine Ratio 14.6 Glucose 58 L Calcium 8.6 Total Bilirubin 1.60 H AST 341 H ALT 199 H Alkaline Phosphatase 66 Total Protein 8.7 Albumin 3.5 Globulin 5.2 H Albumin/Globulin Ratio 0.7 L Blood Type Antibody Screen Acetaminophen (Tylenol Tab*) 650 mg PO Q6H PRN PRN Reason: PAIN-MILD/TEMP >/= 100.4 Last Admin: 06/24/19 22:53 Dose: 650 mg Acyclovir (Zovirax Tab*) 400 mg PO BID [facility] Last Admin: 06/27/19 07:53 Dose: 400 mg Digoxin (Lanoxin Tab*) 0.125 mg PO BEDTIME [facility] Last Admin: 06/26/19 21:50 Dose: 0.125 mg Sodium Chloride (Ns 0.9% 1000 Ml) 1,000 mls @ 150 mls/hr IV PER RATE [facility] Last Admin: 06/26/19 05:54 Dose: 150 mls/hr Piperacillin Sod/Tazobactam (Sod 3.375 gm/ Sodium Chloride) 100 mls @ 200 mls/ hr IVPB ONCE ONE Stop: 06/27/19 09:44 Sodium Chloride (Ns 0.9% 1000 Ml) 2,410 mls @ 2,410 mls/hr 30 ml/kg infuse over 1 hr (2410 ml) IV .NOTE TOTAL VOLUME ONE Stop: 06/27/19 10:14 Lorazepam (Ativan Inj*) 0.5 mg IV PUSH Q4H PRN PRN Reason: Anxiety/insomnia/nausea Metoprolol Succinate (Toprol Xl Tab*) 25 mg PO BID [facility] Last Admin: 06/27/19 07:53 Dose: 25 mg Miscellaneous (Ativan Pyxis Zepeda) 1 ea N/A .ATIVAN IV ZEPEDA PRN PRN Reason: PYXIS ZEPEDA Morphine Sulfate (Ms Contin(*)) 15 mg PO BID [facility] Last Admin: 06/27/19 07:53 Dose: 15 mg Morphine Sulfate (Morphine 10 Mg/Ml Vial (1 Ml)) 5 mg IV Q6H PRN PRN Reason: PAIN - MODERATE Pantoprazole Sodium (Protonix Iv*) 40 mg IV BID [facility] Last Admin: 06/27/19 07:53 Dose: 40 mg Pharmacy Consult (Zosyn Per Pharmacy*) 1 note FOLLOW UP .ZOSYN PER PHARMACY [facility] Exam: Gen: lethargic, opens eyes to voice but quickly falls back to sleep HEENT: MMM CV: irregular rhythm, faint murmur appreciated Resp: CTA, no w/c/r Abd: distended, but soft with hypoactive BS no abd tenderness on exam Ext: no edema Skin: no bruising or other rash] Assessment: [This is a 68 yo male with MM s/p ASCT 02/19/19 who recently started maintenance revlimid anticoagulated with Coumadin for afib who presented with melena and supratherapeutic INR. Hbg now stable and no active bleeding on EGD and flex sig. CT was suspicious for acute cholecystitis and RUQ US also shows GB wall thickening without CBD dilation. He has had an acute change in mentation overnight with new acidosis and worsening transaminitis concerning for sepsis secondary to acute cholecystitis. Plan: [1. Sepsis secondary to acute cholecystitis - no evidence of associated shock at this time, normotensive and afebrile - lactic acid, blood cx, abx and fluid bolus ordered for now - CT is suggestive of possible cholecystitis which is c/w his clinical picture of diarrhea, epigastric/RUQ discomfort and bloating - US also confirms presence of gallbladder wall thickening without CBD dilation. This is accompanied by a rise in Tbili and transaminitis. - ascites noted on CT and US is likely due to RV dysfunction - requested surgical consultation with Dr Pandey 2. GIB - - Hgb is stable over the last 48 hours - EGD and flex sig completed yesterday by Dr Barakat which shows no signs of active bleeding - INR has been reversed with FFP and vit K - will need to resume anticoagulation at some time in the near future d/t his h/ o atrial appendage thrombus, but will cont to hold anticoagulation at this moment 3. Thrombocytopenia - plts fell to 80K - may be due to revlimid v sepsis, favor sepsis at this time due to picture of acute illness 4. HUSSEIN with hyperkalemia - secondary to sepsis - ordered fluid bolus and will monitor closely 5. Supratherapeutic INR - now reversed with vit K/FFP - his INR has been very difficult to regulate, was therapeutic just 5d prior to admission - reports he took a single dose of amoxicillin in anticipation of a dental cleaning and believes he has been taking his Coumadin correctly - EGD shows no signs of acute bleeding and anticoagulation will be resumed prior to dc - spoke with Dr Gorman regarding anticoagulation recommendations and whether NOAC would be an option for him in the future - he reports he has valvular afib and a NOAC would not be indicated - he acknowledges that Coumadin is not an ideal agent if his INR has been so labile and now c/b a GIB - a Watchman procedure would be an option in the future as well as a means to discontinue anticoagulation - Dr Gorman recommended discussing each of the risks and benefits of Coumadin, NOAC and Watchman with the patient 6. 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 MM - hold Revlimid Dispo: now appears to be acutely septic, requires continued inpatient management
[2019-06-27 09:44] LABS: INR 3.87 (0.82-1.09)
[2019-06-27] MEDS ORDERED: Ondansetron INJ* 2 MG/ML VIAL IV PRN (10:52)
--- NOTE | 2019-06-27 12:27 | PN ---
Sepsis Event Evaluation Date of Evaluation: 06/27/19 Time of Evaluation: 12:23 Current Stage of Sepsis: Severe Sepsis Vital Signs - Last 12 Hours: Vital Signs - 12 hr Temp Pulse Resp BP Pulse Ox 06/27/19 10:26 24 06/27/19 07:59 22 06/27/19 07:53 24 06/27/19 03:16 97.5 F 90 22 132/58 100 06/27/19 01:34 98.1 F 81 22 121/60 100 Lactic Acid: 06/27/19 09:32 Lactic Acid 4.3 H* - Cardiopulmonary Exam Capillary Refill: > 5 seconds Respiratory: Symmetrical Chest Expansion and Respiratory Effort, Clear to Auscultation Cardiovascular: - - irregularly rate and rhythm, faint murmur - Peripheral Pulse Exam Radial Pulses: Bilateral Normal Pedal Pulses: Bilateral Normal Posterior Tibial Pulse: Bilateral Normal Femoral Pulses: Bilateral Normal Popliteal Pulses: Bilateral Normal - Skin Exam Skin Exam: [place] - Meta Coma Scale Best Eye Response: 4 - Spontaneous Best Motor Response: 6 - Obeys Commands Best Verbal Response: 5 - Oriented Coma Scale Total: 15 Assess/Plan/Problems-Billing Assessment: 68 yo male with severe sepsis secondary to acute cholecystitis who is being re- evaluated after initial fluid bolus and abx administration. His mentation has greatly improved. Vitals remain stable. Repeat lactic acid pending
[2019-06-27] MEDS: Morphine 10 MG/ML VIAL (1 ml) IV PRN ×2 (12:32→19:09)
[2019-06-27] MEDS: NS 0.9% 1000 ML** 1,000 ML IV SCH ×2 (12:32→22:00)
[2019-06-27] MEDS: ZOSYN 3.375 GM Q8H per EXTENDED INFUSION IVPB SCH ×4 (14:16→22:21)
[2019-06-27] MEDS ORDERED: NS 0.9% 1000 ML** 1,000 ML IV ONE (14:28)
[2019-06-27] MEDS: LORazepam INJ* 2 MG/ML 1 ML VIAL IV PUSH PRN (16:15)
[2019-06-27 17:11] LABS: Urine Appearance Cloudy; Urine Bacteria Absent (Absent); Urine Bilirubin Negative (Negative); Urine Blood Negative (Negative); Urine Color Amber; Urine Glucose Negative (Negative); Urine Ketones Trace (Negative); Urine Nitrite Negative (Negative); Urine Protein 1+(30 mg/dL) (Negative); Urine Red Blood Cell 1+(3-5/hpf) (Absent); Urine Specific Gravity 1.027 (1.010-1.030); Urine Squamous Epithelial Cell Present (Absent); Urine Urobilinogen Negative (Negative); Urine White Blood Cell Trace(0-5/hpf) (Absent)
[2019-06-27] MEDS ORDERED: Sodium Bicarbonate 8.4% IV* 50 ML VIAL IV ONE ×2 (17:14→20:55)
--- NOTE | 2019-06-27 17:42 | CONS ---
AMENDED REPORT NOW INCLUDES DATE OF CONSULT CONSULTATION REPORT: DATE OF CONSULT: 06/27/19 CHIEF COMPLAINT: Sepsis. HISTORY OF PRESENT ILLNESS: This is a pleasant 68-year-old gentleman who is being treated for sepsis with concerns for this being secondary to acute cholecystitis. He has had a relatively unusual presentation initially presenting with black tarry stools and a subtherapeutic INR. He had had a few weeks of diarrhea and loose stools which were black, tar-like in nature. He denied any abdominal pain. No jocelin hematochezia. There had been some discomfort in the upper abdomen with a poor appetite. Earlier prior to admission when he had more significant pain, it would be sharp, approximately 6/ 10 in severity. He did not associate this with eating. He was seen by the on site nurse in the hospital, Dr. Barakat, who performed panendoscopy ( EGD and flexible sigmoidoscopy) with biopsies. No acute bleeding was noted. No old blood was visualized. There was some mild inflammation in the rectum and this was biopsied. A bleeding source was not identified. His INR was corrected. I was consulted today after he began to show some signs of lethargy and workup was suggestive of sepsis. He had had an ultrasound which showed gallstones and a thickened gallbladder wall. Today, he has had evidence of elevated lactic acid, some mental status changes, hyperkalemia. I was asked to see the patient in consideration for management of potential cholecystitis. PAST MEDICAL HISTORY: Significant for multiple myeloma; atrial fibrillation, he is no longer anticoagulated; and atrial appendage thrombus by report. PAST SURGICAL HISTORY: He has had colonoscopy, sigmoidoscopy, upper endoscopy, and mitral valve repair. MEDICATIONS: He is currently on broad-spectrum antibiotics, receiving IV fluids. At home: 1. Acyclovir. 2. Digoxin. 3. Metoprolol. 4. Acetaminophen. 5. Morphine. 6. Warfarin. 7. Revlimid. ALLERGIES: COLCHICINE. FAMILY HISTORY: No family history of GI cancer. SOCIAL HISTORY: No tobacco use. REVIEW OF SYSTEMS: General: Denies weight loss or change of appetite. HEENT: No changes in vision, hearing, swallowing. No sore throat. Cardiac: No chest pain. Pulmonary: No cough. GI: No gross blood per rectum. : No hematuria. Skin: Denies rash. Neuro: No headache or dizziness. Musculoskeletal: No extremity weakness. Psych: No anxiety or depression, changes prior to admission. PHYSICAL EXAM: General: Pleasant gentleman who is not complaining of abdominal pain. His latest vitals showed a temperature of 97, pulse rate of 108 , respiratory rate of 22 to 24, blood pressure of 133/96. HEENT: The sclerae are anicteric. The oral mucosa is pink and moist. Neck is supple. No JVD. Heart: S1, S2. Lungs: Clear anteriorly. Abdomen: Soft, nontender in the epigastrium and right upper quadrant, nondistended. No signs of peritonitis. Skin: No rash, petechiae, or jaundice. Extremities: No clubbing, cyanosis, or edema. Neuro Exam: Grossly intact. No focal motor or sensory deficits. He is answering questions. LABORATORY DATA: Laboratory studies show white blood cell count of 9.5, H and H of 8.6/26. He had a lactic acid at 9 o'clock of 4.3 and 4.7 at 2 o'clock. He has another ordered. IMPRESSION AND PLAN: Septic picture, likely/potentially etiology of which is cholecystitis, although his overall picture and pattern and history are unusual for this. I spoke to MALIK Hogan, about his clinical picture. I think he is a poor surgical candidate overall and may need percutaneous cholecystostomy tube. He may need transfer to intensive care unit if his clinical condition warrants. I ordered a Lau catheter to evaluate his urine output more closely. He has received boluses today. [id number]/[facility] #: [id number] MTDD
[2019-06-27] MEDS ORDERED: Phytonadione Oral Solution* 5 MG/25 ML UDC PO ONE (20:00)
[2019-06-27 20:34] LABS: Calcium 7.7 mg/dL (8.6-10.3); EGFR African American 32.6 (>60); EGFR Non-African American 26.9 (>60)
[2019-06-27 20:36] LABS: Potassium 5.4 mmol/L (3.5-5.0)
[2019-06-27] MEDS ORDERED: Calcium Gluconate INJ* 1 GM in NS 0.9% 50 ML* 50 ML IV ONE (20:55)
[2019-06-27] MEDS ORDERED: Phytonadione SUBCUT/IM Adult* 10 MG/ML AMP (IM or SQ not preferred route) IM ONE (21:00)
[2019-06-27] MEDS: Digoxin TAB* 0.125 MG PO SCH (22:11)
--- NOTE | 2019-06-28 01:14 | OP ---
AMENDED REPORT NOW INCLUDES DATE OF OPERATION DATE OF OPERATION: 06/27/19 - ROOM #ICU-01 DATE OF : 50 SURGEON: Mehrdad Pandey MD. BALL RACKER: None. PRE-OP DIAGNOSES: Sepsis, poor IV access. POST-OP DIAGNOSES: Sepsis, poor IV access. OPERATIVE PROCEDURE: Placement of left internal jugular vein central venous line. INDICATIONS FOR PROCEDURE: Sepsis, requiring IV access, he has poor venous access, for treatment in the ICU. Risks of bleeding, infection, and pneumothorax explained to the patient, who agreed to the procedure, gave verbal consent, and all questions were answered. DESCRIPTION OF PROCEDURE: In the ICU bed, in the Trendelenburg position, the left neck was prepped and draped in sterile fashion. Skin was anesthetized with plain lidocaine. An ultrasound probe was used to locate the internal jugular vein. A needle was placed in the vein, a wire was passed through the needle using Seldinger technique and the needle was removed. The tract was dilated and the triple lumen catheter was advanced over the wire and the wire was removed. All three ports of the triple lumen were flushed. The central line was sutured in place. Sterile Opsite was applied. Chest x-ray was ordered , which revealed no pneumothorax and good location of the catheter. The patient was taken out of Trendelenburg position. A chest x-ray was done in the upright sitting position. He tolerated the procedure well. EBL was minimal. [id number]/[facility] #: [id number] MTDD
[2019-06-28] MEDS ORDERED: Sodium Bicarbonate 8.4% IV* 50 ML VIAL IV ONE (01:20)
[2019-06-28] MEDS: Acyclovir* 400 MG TAB PO SCH ×3 (01:26→21:20)
[2019-06-28] MEDS ORDERED: Sodium Bicarbonate 8.4% IV* 50 ML VIAL ONE ×3 (01:29→21:00)
[2019-06-28 04:57] LABS: ABS Lymphocytes 0.4 10^3/ul (1.0-4.8); ABS Monocytes 1.7 10^3/ul (0-0.8); ABS Neutrophils 3.8 10^3/ul (1.5-7.7); ABS Nucleated RBC 0.2 10^3/ul; Hematocrit 22 % (42-52); Hemoglobin 7.4 g/dL (14.0-18.0); Mean Corpuscular HGB Conc 34 g/dL (31-36); Mean Corpuscular Hemoglobin 33 pg (27-31); Mean Corpuscular Volume 98 fL (80-94); Mean Platelet Volume 8.2 fL (7.4-10.4); Platelet Count 58 10^3/uL (150-450); Red Blood Count 2.23 10^6 /uL (4.18-5.48); Red Cell Distribution Width 17 % (10-15); White Blood Count 5.9 10^3/uL (3.5-10.8)
[2019-06-28 05:02] LABS: Activated Partial Thrombo Time 33.2 seconds (26.0-38.0); INR 3.6 (0.82-1.09)
[2019-06-28 05:08] LABS: Albumin 3.2 g/dL (3.2-5.2); Albumin/Globulin Ratio 0.7 (1-3); BUN/Creatinine Ratio 16.9 (8-20); Calcium 7.7 mg/dL (8.6-10.3); EGFR African American 30.7 (>60); EGFR Non-African American 25.3 (>60); Globulin 4.5 g/dL (2-4); Total Bilirubin 1.6 mg/dL (0.2-1.0); Total Protein 7.7 g/dL (6.4-8.9)
[2019-06-28] MEDS: ZOSYN 3.375 GM Q8H per EXTENDED INFUSION IVPB SCH ×6 (06:02→21:58)
[2019-06-28] MEDS: Lidocaine 2% JELLY* 6 ML JELLY TOPICAL PRN (06:02)
[2019-06-28] MEDS: NS 0.9% 1000 ML** 1,000 ML IV SCH ×3 (06:06→21:14)
[2019-06-28 06:08] LABS: Polychromasia 1+
[2019-06-28 06:09] LABS: Eosinophil % 0.5 %; Lymphocyte % 7.2 %; Nucleated Red Blood Cells % 2.6
[2019-06-28] MEDS ORDERED: Phytonadione Oral Solution* 5 MG/25 ML UDC PO ONE (08:02)
[2019-06-28] MEDS: Pantoprazole IV* 40 MG IV SCH ×2 (08:43→21:08)
[2019-06-28] MEDS: Morphine 10 MG/ML VIAL (1 ml) IV PRN ×2 (09:14→15:29)
[2019-06-28] MEDS ORDERED: Furosemide IV* 10 MG/ML 2 ML VIAL (20 MG) IV SLOW PU ONE (09:36)
[2019-06-28 09:43] LABS: Hematocrit 23 % (42-52); Hemoglobin 7.8 g/dL (14.0-18.0); Mean Corpuscular HGB Conc 35 g/dL (31-36); Mean Corpuscular Hemoglobin 34 pg (27-31); Mean Corpuscular Volume 98 fL (80-94); Platelet Count 59 10^3/uL (150-450); Red Blood Count 2.31 10^6 /uL (4.18-5.48); Red Cell Distribution Width 16 % (10-15); White Blood Count 5.5 10^3/uL (3.5-10.8)
[2019-06-28 09:53] LABS: BUN/Creatinine Ratio 17.2 (8-20); Calcium 7.8 mg/dL (8.6-10.3); EGFR African American 28.9 (>60); EGFR Non-African American 23.9 (>60)
--- NOTE | 2019-06-28 10:03 | PN ---
Progress Note - Progress Note Date of Service: 06/28/19 SOAP: Subjective: [Transferred to ICU yesterday evening after lactic acid continued to rise. Remains hemodynamically stable overnight. He is intermittently alert and expressed that he does not want the percutaneous cholecystostomy drain or any other surgical intervention and wished to be DNR/DNI. ] Objective: [ Vital Signs: Temp Pulse Resp BP Pulse Ox 98.3 F 96 16 128/53 97 06/28/19 08:00 06/28/19 08:01 06/28/19 09:14 06/28/19 08:00 06/28/19 08:01 Acetaminophen (Tylenol Tab*) 650 mg PO Q6H PRN PRN Reason: PAIN-MILD/TEMP >/= 100.4 Last Admin: 06/24/19 22:53 Dose: 650 mg Acyclovir (Zovirax Tab*) 400 mg PO BID EV Last Admin: 06/28/19 09:23 Dose: Not Given Digoxin (Lanoxin Tab*) 0.125 mg PO BEDTIME EV Last Admin: 06/27/19 22:11 Dose: 0.125 mg Piperacillin Sod/Tazobactam (Sod 3.375 gm/ Sodium Chloride) 100 mls @ 25 mls/ hr IVPB Q8H EV Last Admin: 06/28/19 06:02 Dose: 25 mls/hr Sodium Chloride (Ns 0.9% 1000 Ml) 1,000 mls @ 100 mls/hr IV PER RATE EV Lidocaine HCl (Lidocaine 2% Jelly*) 1 applic TOPICAL .SEE COMMENTS PRN PRN Reason: SEE COMMENTS Last Admin: 06/28/19 06:02 Dose: 1 applic Lorazepam (Ativan Inj*) 0.5 mg IV PUSH Q4H PRN PRN Reason: Anxiety/insomnia/nausea Last Admin: 06/27/19 16:15 Dose: 0.5 mg Miscellaneous (Ativan Pyxis Zepeda) 1 ea N/A .ATIVAN IV ZEPEDA PRN PRN Reason: PYXIS ZEPEDA Morphine Sulfate (Morphine 10 Mg/Ml Vial (1 Ml)) 5 mg IV Q2H PRN PRN Reason: PAIN - MODERATE Last Admin: 06/28/19 09:14 Dose: 5 mg Ondansetron HCl (Zofran Inj*) 4 mg IV Q4H PRN PRN Reason: NAUSEA Last Admin: 06/27/19 12:32 Dose: 4 mg Pantoprazole Sodium (Protonix Iv*) 40 mg IV BID [facility] Last Admin: 06/28/19 08:43 Dose: 40 mg Pharmacy Consult (Zosyn Per Pharmacy*) 1 note FOLLOW UP .ZOSYN PER PHARMACY [facility] Laboratory Results - last 24 hr 06/25/19 06/27/19 06/27/19 12:30 09:32 13:55 WBC RBC Hgb Hct MCV MCH MCHC RDW Plt Count MPV Neut % (Auto) Lymph % (Auto) [place] % (Auto) Eos % (Auto) Baso % (Auto) Absolute Neuts (auto) Absolute Lymphs (auto) Absolute Monos (auto) Absolute Eos (auto) Absolute Basos (auto) Absolute Nucleated RBC Immature Gran % Neutrophils % Lymphocytes % Monocytes % Basophils % Metamyelocytes % Nucleated RBC % Nucleated RBCs/100 WBC Normal RBC Morphology Polychromasia Hypochromasia Anisocytosis INR (Anticoag Therapy) APTT VBG pH VBG pCO2 VBG pO2 VBG HCO3 VBG O2 Saturation VBG Base Excess Sodium Potassium Chloride Carbon Dioxide Anion Gap BUN Creatinine Est GFR ( Amer) Est GFR (Non-Af Amer) BUN/Creatinine Ratio Glucose Lactic Acid 4.3 H* 4.7 H* Calcium Total Bilirubin AST ALT Alkaline Phosphatase Total Protein Albumin Globulin Albumin/Globulin Ratio Urine Color Urine Appearance Urine pH Ur Specific [place] Urine Protein Urine Ketones Urine Blood Urine Nitrate Urine Bilirubin Urine Urobilinogen Ur Leukocyte Esterase Urine WBC (Auto) Urine RBC (Auto) Ur Squamous Epith Cells Urine Bacteria Urine Glucose Blood Type A Positive Antibody Screen Negative 06/27/19 06/27/19 06/27/19 16:14 16:56 20:00 WBC RBC Hgb Hct MCV MCH MCHC RDW Plt Count MPV Neut % (Auto) Lymph % (Auto) [place] % (Auto) Eos % (Auto) Baso % (Auto) Absolute Neuts (auto) Absolute Lymphs (auto) Absolute Monos (auto) Absolute Eos (auto) Absolute Basos (auto) Absolute Nucleated RBC Immature Gran % Neutrophils % Lymphocytes % Monocytes % Basophils % Metamyelocytes % Nucleated RBC % Nucleated RBCs/100 WBC Normal RBC Morphology Polychromasia Hypochromasia Anisocytosis INR (Anticoag Therapy) APTT VBG pH VBG pCO2 VBG pO2 VBG HCO3 VBG O2 Saturation VBG Base Excess Sodium 137 Potassium 5.4 H Chloride 109 Carbon Dioxide 10 L* Anion Gap 18 H BUN 41 H Creatinine 2.41 H Est GFR ( Amer) 32.6 Est GFR (Non-Af Amer) 26.9 BUN/Creatinine Ratio 17.0 Glucose 74 Lactic Acid 5.1 H* Calcium 7.7 L Total Bilirubin AST ALT Alkaline Phosphatase Total Protein Albumin Globulin Albumin/Globulin Ratio Urine Color Shari Urine Appearance Cloudy Urine pH 5.0 Ur Specific [place] 1.027 Urine Protein 1+(30 mg/dl) A Urine Ketones Trace A Urine Blood Negative Urine Nitrate Negative Urine Bilirubin Negative Urine Urobilinogen Negative Ur Leukocyte Esterase Negative Urine WBC (Auto) Trace(0-5/hpf) Urine RBC (Auto) 1+(3-5/hpf) A Ur Squamous Epith Cells Present A Urine Bacteria Absent Urine Glucose Negative Blood Type Antibody Screen 06/27/19 06/27/19 06/28/19 20:05 22:40 00:30 WBC RBC Hgb Hct MCV MCH MCHC RDW Plt Count MPV Neut % (Auto) Lymph % (Auto) [place] % (Auto) Eos % (Auto) Baso % (Auto) Absolute Neuts (auto) Absolute Lymphs (auto) Absolute Monos (auto) Absolute Eos (auto) Absolute Basos (auto) Absolute Nucleated RBC Immature Gran % Neutrophils % Lymphocytes % Monocytes % Basophils % Metamyelocytes % Nucleated RBC % Nucleated RBCs/100 WBC Normal RBC Morphology Polychromasia Hypochromasia Anisocytosis INR (Anticoag Therapy) APTT VBG pH 7.24 L VBG pCO2 21 L VBG pO2 46.0 H VBG HCO3 11.4 L VBG O2 Saturation 69.4 L VBG Base Excess -16.3 L Sodium Potassium Chloride Carbon Dioxide Anion Gap BUN Creatinine Est GFR ( Amer) Est GFR (Non-Af Amer) BUN/Creatinine Ratio Glucose Lactic Acid 5.1 H* 5.1 H* Calcium Total Bilirubin AST ALT Alkaline Phosphatase Total Protein Albumin Globulin Albumin/Globulin Ratio Urine Color Urine Appearance Urine pH Ur Specific [place] Urine Protein Urine Ketones Urine Blood Urine Nitrate Urine Bilirubin Urine Urobilinogen Ur Leukocyte Esterase Urine WBC (Auto) Urine RBC (Auto) Ur Squamous Epith Cells Urine Bacteria Urine Glucose Blood Type Antibody Screen 06/28/19 06/28/19 06/28/19 04:35 04:35 04:35 WBC 5.9 RBC 2.23 L Hgb 7.4 L Hct 22 L MCV 98 H MCH 33 H MCHC 34 RDW 17 H Plt Count 58 L MPV 8.2 Neut % (Auto) 63.9 Lymph % (Auto) 7.2 [place] % (Auto) 27.8 Eos % (Auto) 0.5 Baso % (Auto) 0.6 Absolute Neuts (auto) 3.8 Absolute Lymphs (auto) 0.4 L Absolute Monos (auto) 1.7 H Absolute Eos (auto) 0.0 Absolute Basos (auto) 0.0 Absolute Nucleated RBC 0.2 Immature Gran % 1.0 Neutrophils % 67.0 Lymphocytes % 21.0 Monocytes % 10.0 Basophils % 1.0 Metamyelocytes % 1.0 Nucleated RBC % 2.6 Nucleated RBCs/100 WBC 4.0 H Normal RBC Morphology Not Reportable Polychromasia 1+ Hypochromasia 1+ Anisocytosis 2+ INR (Anticoag Therapy) APTT VBG pH VBG pCO2 VBG pO2 VBG HCO3 VBG O2 Saturation VBG Base Excess Sodium 140 Potassium 5.0 Chloride 109 Carbon Dioxide 14 L* Anion Gap 17 H BUN 43 H Creatinine 2.54 H Est GFR ( Amer) 30.7 Est GFR (Non-Af Amer) 25.3 BUN/Creatinine Ratio 16.9 Glucose 91 Lactic Acid 4.0 H* Calcium 7.7 L Total Bilirubin 1.60 H AST 770 H ALT 404 H Alkaline Phosphatase 58 Total Protein 7.7 Albumin 3.2 Globulin 4.5 H Albumin/Globulin Ratio 0.7 L Urine Color Urine Appearance Urine pH Ur Specific [place] Urine Protein Urine Ketones Urine Blood Urine Nitrate Urine Bilirubin Urine Urobilinogen Ur Leukocyte Esterase Urine WBC (Auto) Urine RBC (Auto) Ur Squamous Epith Cells Urine Bacteria Urine Glucose Blood Type Antibody Screen 06/28/19 06/28/19 04:35 09:15 WBC 5.5 RBC 2.31 L Hgb 7.8 L Hct 23 L MCV 98 H MCH 34 H MCHC 35 RDW 16 H Plt Count 59 L MPV 8.0 Neut % (Auto) Lymph % (Auto) [place] % (Auto) Eos % (Auto) Baso % (Auto) Absolute Neuts (auto) Absolute Lymphs (auto) Absolute Monos (auto) Absolute Eos (auto) Absolute Basos (auto) Absolute Nucleated RBC Immature Gran % Neutrophils % Lymphocytes % Monocytes % Basophils % Metamyelocytes % Nucleated RBC % Nucleated RBCs/100 WBC Normal RBC Morphology Polychromasia Hypochromasia Anisocytosis INR (Anticoag Therapy) 3.60 H APTT 33.2 VBG pH VBG pCO2 VBG pO2 VBG HCO3 VBG O2 Saturation VBG Base Excess Sodium Potassium Chloride Carbon Dioxide Anion Gap BUN Creatinine Est GFR ( Amer) Est GFR (Non-Af Amer) BUN/Creatinine Ratio Glucose Lactic Acid Calcium Total Bilirubin AST ALT Alkaline Phosphatase Total Protein Albumin Globulin Albumin/Globulin Ratio Urine Color Urine Appearance Urine pH Ur Specific [place] Urine Protein Urine Ketones Urine Blood Urine Nitrate Urine Bilirubin Urine Urobilinogen Ur Leukocyte Esterase Urine WBC (Auto) Urine RBC (Auto) Ur Squamous Epith Cells Urine Bacteria Urine Glucose Blood Type Antibody Screen Exam: Gen: lethargic, opens eyes to voice but quickly falls back to sleep, does not communicate HEENT: MMM CV: irregular rhythm, faint murmur appreciated Resp: CTA, no w/c/r Abd: distended with hypoactive BS no abd tenderness on exam Ext: no edema Skin: ecchymosis surrounding L IJ site] Assessment: [This is a 68 yo male with MM s/p ASCT 02/19/19 who recently started maintenance revlimid anticoagulated with Coumadin for afib who presented with melena and supratherapeutic INR. Hbg now stable and no active bleeding on EGD and flex sig. CT was suspicious for acute cholecystitis and RUQ US also shows GB wall thickening without CBD dilation. He has had an acute change in the last 24 hours with severe sepsis and requiring ICU level care Plan: [1. Severe sepsis secondary to acute cholecystitis - no evidence of associated shock at this time, normotensive and afebrile - blood cx are growing gram positive cocci that is not staph in 1/4 bottles at this time - suspect enterococcus - lactic acid has improved slightly - cont Zosyn - appreciate input from Dr Pandey and discussed percutaneous cholecystostomy tube with Dr Cervantes which patient has now declined and his INR remains too high to safely perform the procedure despite 3 additional units of FFP and 5 mg of vit K - will reassess patient's willingness to pursue drain placement tomorrow - greatly appreciate involvement of finish rolls operator, Dr Akers 2. GIB in the setting of a supratherapeutic INR- - Hgb has dropped 1g over the last 24 hours, he has some oozing from central line site which may be responsible for some of the drop, otherwise is likely dilutional from the large amount of fluid that he received yesterday - EGD and flex sig completed 06/[address] Barakat showed no signs of active bleeding - he has now received a total of 8U FFP, 3 additional units given overnight last night and a total of 20 mg vit K - will need to resume anticoagulation if he recovers from this acute illness d/ t his h/o atrial appendage thrombus, but will cont to hold anticoagulation at this time 3. Thrombocytopenia - plts have fallen to 58K, likely due to sepsis 4. oliguric HUSSEIN - secondary to sepsis - cont to monitor, will challenge with lasix bolus and assess for response in UO - now developing anasarca 6. 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 MM - s/p ASCT 02/2019 - holding Revlimid Dispo: prognosis from severe sepsis is poor and patient has requested DNR/DNI status. Will continue current level of care, but will not plan to escalate if he deteriorates further. Updated his HCP, Shiela by phone this morning.
--- NOTE | 2019-06-28 10:29 | CONSULT ---
Consult Consult: Critical care consult note Date of consultation: 06/28/19 Consult requested by Rishi Wild NP HPI: Pt is 68 yo male with MM s/p ASCT 02/19/19 who recently started maintenance revlimid, A.fib on Coumadin, mitral valve dysfunction, atrial appendage thrombus who presented with melena and supratherapeutic INR. No active bleeding noted on EGD and flex sig. CT was suspicious for acute cholecystitis and RUQ US also shows GB wall thickening without CBD dilation. He was initiated on broad spectrum abx. He has had an acute change in mentation overnight with new acidosis and worsening transaminitis concerning for sepsis secondary to acute cholecystitis. Patient was transferred to ICU for further care of sepsis and AMS. Pt continued to be fluid resuscitated over night. He remained drowsy however responding appropriately to verbal stimuli. Denies pain however reports feeling ill. Surgery was consulted, poor surgical candidate. IR was contacted for percutaneous drain placement. His INR remains elevated inspite of 5 mg Vit K IM and 3 units of FFP. 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 His ex-girl friend is HCP. No tobacco,ETOH or drug abuse FHx: Non-contributory ROS: All 12 systems reviewed and as per HPI O/E: Pt in bed, drowsy, but appropriate Vital Signs Temp Pulse Resp BP Pulse Ox 98.3 F 96 16 128/53 97 06/28/19 08:00 06/28/19 08:01 06/28/19 09:14 06/28/19 08:00 06/28/19 08:01 HEENT: Lt IJ oozing serous fluid, no evidence of hematoma, no accessory muscle usage Lungs: Good a/e b/l CVS: S1, S2+ Abd: Distended, BS+- diminished, Guarding, no rebound, hard round density with nodular consistency palpable in RUQ below the rib margin Ext: Edema+ Neuro: Drowsy but oriented, follows commands Laboratory Results - last 24 hr 06/25/19 06/27/19 06/27/19 12:30 09:32 13:55 WBC RBC Hgb Hct MCV MCH MCHC RDW Plt Count MPV Neut % (Auto) Lymph % (Auto) [place] % (Auto) Eos % (Auto) Baso % (Auto) Absolute Neuts (auto) Absolute Lymphs (auto) Absolute Monos (auto) Absolute Eos (auto) Absolute Basos (auto) Absolute Nucleated RBC Immature Gran % Neutrophils % Lymphocytes % Monocytes % Basophils % Metamyelocytes % Nucleated RBC % Nucleated RBCs/100 WBC Normal RBC Morphology Polychromasia Hypochromasia Anisocytosis INR (Anticoag Therapy) APTT VBG pH VBG pCO2 VBG pO2 VBG HCO3 VBG O2 Saturation VBG Base Excess Sodium Potassium Chloride Carbon Dioxide Anion Gap BUN Creatinine Est GFR ( Amer) Est GFR (Non-Af Amer) BUN/Creatinine Ratio Glucose Lactic Acid 4.3 H* 4.7 H* Calcium Total Bilirubin AST ALT Alkaline Phosphatase Total Protein Albumin Globulin Albumin/Globulin Ratio Urine Color Urine Appearance Urine pH Ur Specific [place] Urine Protein Urine Ketones Urine Blood Urine Nitrate Urine Bilirubin Urine Urobilinogen Ur Leukocyte Esterase Urine WBC (Auto) Urine RBC (Auto) Ur Squamous Epith Cells Urine Bacteria Urine Glucose Blood Type A Positive Antibody Screen Negative 06/27/19 06/27/19 06/27/19 16:14 16:56 20:00 WBC RBC Hgb Hct MCV MCH MCHC RDW Plt Count MPV Neut % (Auto) Lymph % (Auto) [place] % (Auto) Eos % (Auto) Baso % (Auto) Absolute Neuts (auto) Absolute Lymphs (auto) Absolute Monos (auto) Absolute Eos (auto) Absolute Basos (auto) Absolute Nucleated RBC Immature Gran % Neutrophils % Lymphocytes % Monocytes % Basophils % Metamyelocytes % Nucleated RBC % Nucleated RBCs/100 WBC Normal RBC Morphology Polychromasia Hypochromasia Anisocytosis INR (Anticoag Therapy) APTT VBG pH VBG pCO2 VBG pO2 VBG HCO3 VBG O2 Saturation VBG Base Excess Sodium 137 Potassium 5.4 H Chloride 109 Carbon Dioxide 10 L* Anion Gap 18 H BUN 41 H Creatinine 2.41 H Est GFR ( Amer) 32.6 Est GFR (Non-Af Amer) 26.9 BUN/Creatinine Ratio 17.0 Glucose 74 Lactic Acid 5.1 H* Calcium 7.7 L Total Bilirubin AST ALT Alkaline Phosphatase Total Protein Albumin Globulin Albumin/Globulin Ratio Urine Color Shari Urine Appearance Cloudy Urine pH 5.0 Ur Specific [place] 1.027 Urine Protein 1+(30 mg/dl) A Urine Ketones Trace A Urine Blood Negative Urine Nitrate Negative Urine Bilirubin Negative Urine Urobilinogen Negative Ur Leukocyte Esterase Negative Urine WBC (Auto) Trace(0-5/hpf) Urine RBC (Auto) 1+(3-5/hpf) A Ur Squamous Epith Cells Present A Urine Bacteria Absent Urine Glucose Negative Blood Type Antibody Screen 06/27/19 06/27/19 06/28/19 20:05 22:40 00:30 WBC RBC Hgb Hct MCV MCH MCHC RDW Plt Count MPV Neut % (Auto) Lymph % (Auto) [place] % (Auto) Eos % (Auto) Baso % (Auto) Absolute Neuts (auto) Absolute Lymphs (auto) Absolute Monos (auto) Absolute Eos (auto) Absolute Basos (auto) Absolute Nucleated RBC Immature Gran % Neutrophils % Lymphocytes % Monocytes % Basophils % Metamyelocytes % Nucleated RBC % Nucleated RBCs/100 WBC Normal RBC Morphology Polychromasia Hypochromasia Anisocytosis INR (Anticoag Therapy) APTT VBG pH 7.24 L VBG pCO2 21 L VBG pO2 46.0 H VBG HCO3 11.4 L VBG O2 Saturation 69.4 L VBG Base Excess -16.3 L Sodium Potassium Chloride Carbon Dioxide Anion Gap BUN Creatinine Est GFR ( Amer) Est GFR (Non-Af Amer) BUN/Creatinine Ratio Glucose Lactic Acid 5.1 H* 5.1 H* Calcium Total Bilirubin AST ALT Alkaline Phosphatase Total Protein Albumin Globulin Albumin/Globulin Ratio Urine Color Urine Appearance Urine pH Ur Specific [place] Urine Protein Urine Ketones Urine Blood Urine Nitrate Urine Bilirubin Urine Urobilinogen Ur Leukocyte Esterase Urine WBC (Auto) Urine RBC (Auto) Ur Squamous Epith Cells Urine Bacteria Urine Glucose Blood Type Antibody Screen 06/28/19 06/28/19 06/28/19 04:35 04:35 04:35 WBC 5.9 RBC 2.23 L Hgb 7.4 L Hct 22 L MCV 98 H MCH 33 H MCHC 34 RDW 17 H Plt Count 58 L MPV 8.2 Neut % (Auto) 63.9 Lymph % (Auto) 7.2 [place] % (Auto) 27.8 Eos % (Auto) 0.5 Baso % (Auto) 0.6 Absolute Neuts (auto) 3.8 Absolute Lymphs (auto) 0.4 L Absolute Monos (auto) 1.7 H Absolute Eos (auto) 0.0 Absolute Basos (auto) 0.0 Absolute Nucleated RBC 0.2 Immature Gran % 1.0 Neutrophils % 67.0 Lymphocytes % 21.0 Monocytes % 10.0 Basophils % 1.0 Metamyelocytes % 1.0 Nucleated RBC % 2.6 Nucleated RBCs/100 WBC 4.0 H Normal RBC Morphology Not Reportable Polychromasia 1+ Hypochromasia 1+ Anisocytosis 2+ INR (Anticoag Therapy) APTT VBG pH VBG pCO2 VBG pO2 VBG HCO3 VBG O2 Saturation VBG Base Excess Sodium 140 Potassium 5.0 Chloride 109 Carbon Dioxide 14 L* Anion Gap 17 H BUN 43 H Creatinine 2.54 H Est GFR ( Amer) 30.7 Est GFR (Non-Af Amer) 25.3 BUN/Creatinine Ratio 16.9 Glucose 91 Lactic Acid 4.0 H* Calcium 7.7 L Total Bilirubin 1.60 H AST 770 H ALT 404 H Alkaline Phosphatase 58 Total Protein 7.7 Albumin 3.2 Globulin 4.5 H Albumin/Globulin Ratio 0.7 L Urine Color Urine Appearance Urine pH Ur Specific [place] Urine Protein Urine Ketones Urine Blood Urine Nitrate Urine Bilirubin Urine Urobilinogen Ur Leukocyte Esterase Urine WBC (Auto) Urine RBC (Auto) Ur Squamous Epith Cells Urine Bacteria Urine Glucose Blood Type Antibody Screen 06/28/19 06/28/19 06/28/19 04:35 09:15 09:15 WBC 5.5 RBC 2.31 L Hgb 7.8 L Hct 23 L MCV 98 H MCH 34 H MCHC 35 RDW 16 H Plt Count 59 L MPV 8.0 Neut % (Auto) Lymph % (Auto) [place] % (Auto) Eos % (Auto) Baso % (Auto) Absolute Neuts (auto) Absolute Lymphs (auto) Absolute Monos (auto) Absolute Eos (auto) Absolute Basos (auto) Absolute Nucleated RBC Immature Gran % Neutrophils % Lymphocytes % Monocytes % Basophils % Metamyelocytes % Nucleated RBC % Nucleated RBCs/100 WBC Normal RBC Morphology Polychromasia Hypochromasia Anisocytosis INR (Anticoag Therapy) 3.60 H APTT 33.2 VBG pH VBG pCO2 VBG pO2 VBG HCO3 VBG O2 Saturation VBG Base Excess Sodium 141 Potassium 5.0 Chloride 110 Carbon Dioxide Anion Gap BUN 46 H Creatinine 2.67 H Est GFR ( Amer) 28.9 Est GFR (Non-Af Amer) 23.9 BUN/Creatinine Ratio 17.2 Glucose 92 Lactic Acid Calcium 7.8 L Total Bilirubin AST ALT Alkaline Phosphatase Total Protein Albumin Globulin Albumin/Globulin Ratio Urine Color Urine Appearance Urine pH Ur Specific [place] Urine Protein Urine Ketones Urine Blood Urine Nitrate Urine Bilirubin Urine Urobilinogen Ur Leukocyte Esterase Urine WBC (Auto) Urine RBC (Auto) Ur Squamous Epith Cells Urine Bacteria Urine Glucose Blood Type Antibody Screen Micro: Bl cx: Gram positive cocci, negative for S aureus and MRSA CT abdomen: Ascites+, gall bladder distended, cholecystitis, colitis, diverticulosis, anasarca I/R: 68 y o m with h/o MM s/p BMT in February 2019 a/w melena and suprathereupeutic INR, was transferred to ICU for management of sepsis, AMS 1. Sepsis sec to possible biliary source, colitis also in differential 2. AMS sec to septic encephalopathy 3. Metabolic acidosis 4. Renal failure 5. Anemia- Blood loss versus bone marrow supression versus hemoysis 6. Melena- No bleeding source noted on EGD/sigmoidoscopy 7. Elevated lactate 8. Elevated LFTs 9. Thrombocytopenia 10. Suprathereupeutic INR Neuro: AMS-Septic encephalopathy. Able to protect airway, able to make needs know. Aspiration precautions, fall precautions. Keep HOB elevated to 30 degrees. Resp: Tachypenic sec to metabolic acidosis. Saturating well on RA. 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 Hypotension with severe sepsis responding to fluid resuscitation without any septic shock. Will consider Levophed to improve renal perfusion. TTE- R sided heart failure and moderate to severe mitral stenosis, LV fxn is intact GI: Acute cholecystitis and ascites with cystic structure in liver, elevated Tbili and transaminitis. CT abdomen also showed colitis. He is on Zosyn. Poor surgical candidate, IR was contacted for percutaneous gall bladder drain, pt declining procedure at this time. EGD and flex sig by Dr Barakat showed no signs of active bleeding ID: Sepsis sec to gall bladder source. Pt on Zosyn, Bl cx, gram positive cocci in 1 bottle, likely contamination. Pt declining percutaneous drain at this time. Surgery consult noted, poor surgical candidate. Renal: HUSSEIN- secondary to sepsis. Receiving fluid bolus, will start low dose Levophed to help with improving perfusion. Hyperkalemia resolved. Will give Lasix to help facilitate diuresis given anasarca and low urine output with positive fluid balance. Haem: Slight drop in H&H, likely dilutional. INR elevated, improved with FFP and vit K- will need to resume anticoagulation at some time in the near future d /t his h/o atrial appendage thrombus, but will cont to hold anticoagulation at this moment. No active bleeding at this time. Will consider kcerta if active bleeding or needs procedure. Thrombocytopenia - may be due to revlimid v sepsis , stable. Oncology: MM- hold Revlimid DVT px: SCDs given anemia, thrombocytopenia and recent GI bleed Lau catheter for hemodynamic monitoring Lt IJ in place. serous drainage through insertion site likely sec to anasarca. Mild swelling, No hematoma at site Pt is DNR/DNI Plan of care discussed with bedside RN, Rishi Horne. HCP was updated on recent developments by Rishi Horne
[2019-06-28] MEDS ORDERED: Norepinephrine 16MCG/ML IVPRE* 4,000 MCG/250 ML BAG IV SCH (11:00)
[2019-06-28 11:37] LABS: Hepatitis B Surface Antigen Nonreactive (Nonreactive)
[2019-06-28 11:54] LABS: Hepatitis C Antibody Negative (Negative)
--- NOTE | 2019-06-28 13:58 | PN ---
Progress Note - Progress Note Date of Service: 06/28/19 Note: GI Progress Note Patient seen and examined. HCP at bedside. D/W RN at bedside. He denies any abdominal pain. Lethargic. RN states u/o poor this am, had some improvement with dose of lasix. No skin lesions. No change in urine color or character. No melena or hematochezia. Some oozing by IJ site. VS: 95/71, P 112, R- 14, 96%RA. Tmax 98.7 Gen: lethargic, ill appearing HEENT: At, nc, sclera anicteric, conjunctiva pink CVS: tachycardic s1s2 Resp: diminished at base but grossly clear otherwise Abd: soft, TTP RUQ, bs hypoactive, no guarding or rebound Ext; anasarca Lab: Hgb: 7.8 plt 59, Lactic 3.2, CO2 13, AST 770, ALT 404, AlkP 58, Bili 1.6 CT: descend/ascend colon wall thickening. Micro 1/4 GPC Impression Acute blood loss anemia: resolved DIC Severe sepsis, unclear source ? gallbladder Likely early ischemic colitis based on distribution on CT Rec: No sign of acute GIB at this time. Patient has severe sepsis with possible gallbladder source. Agree that percutaneous source control drain would be best option as discussed with Wheel Alignment Mechanic but patient has refused. Doubt cholangitis with minimal bili and normal alkphos. Suspect ischemic hepatopathy and colitis. Adryan Barakat DO 06/28/19 1400
[2019-06-28 16:00] LABS: INR 3.74 (0.82-1.09)
[2019-06-28 16:07] LABS: Albumin 3.1 g/dL (3.2-5.2); Albumin/Globulin Ratio 0.6 (1-3); BUN/Creatinine Ratio 17.8 (8-20); Calcium 7.6 mg/dL (8.6-10.3); EGFR African American 27.3 (>60); EGFR Non-African American 22.6 (>60); Globulin 5.1 g/dL (2-4); Total Bilirubin 1.7 mg/dL (0.2-1.0); Total Protein 8.2 g/dL (6.4-8.9)
[2019-06-28] MEDS: Digoxin TAB* 0.125 MG PO SCH (21:07)
[2019-06-28 21:49] LABS: BUN/Creatinine Ratio 18.3 (8-20); Calcium 7.7 mg/dL (8.6-10.3); EGFR African American 25.8 (>60); EGFR Non-African American 21.3 (>60); Potassium 4.8 mmol/L (3.5-5.0)
[2019-06-29] MEDS: Morphine 10 MG/ML VIAL (1 ml) IV PRN ×2 (00:08→22:09)
[2019-06-29 05:11] LABS: Hematocrit 23 % (42-52); Hemoglobin 7.7 g/dL (14.0-18.0); Mean Corpuscular HGB Conc 34 g/dL (31-36); Mean Corpuscular Hemoglobin 33 pg (27-31); Mean Corpuscular Volume 97 fL (80-94); Mean Platelet Volume 7.8 fL (7.4-10.4); Platelet Count 61 10^3/uL (150-450); Red Blood Count 2.33 10^6 /uL (4.18-5.48); Red Cell Distribution Width 17 % (10-15); White Blood Count 6.1 10^3/uL (3.5-10.8)
[2019-06-29 05:13] LABS: INR 3.53 (0.82-1.09)
[2019-06-29] MEDS: ZOSYN 3.375 GM Q8H per EXTENDED INFUSION IVPB SCH ×4 (05:15→15:11)
[2019-06-29 05:27] LABS: Albumin 2.8 g/dL (3.2-5.2); Albumin/Globulin Ratio 0.6 (1-3); BUN/Creatinine Ratio 20.6 (8-20); Calcium 7.5 mg/dL (8.6-10.3); EGFR African American 27.3 (>60); EGFR Non-African American 22.6 (>60); Globulin 4.7 g/dL (2-4); Potassium 4.6 mmol/L (3.5-5.0); Total Bilirubin 1.7 mg/dL (0.2-1.0); Total Protein 7.5 g/dL (6.4-8.9)
[2019-06-29 05:47] LABS: ABS Basophils 0.1 10^3/ul (0-0.2); ABS Lymphocytes 0.6 10^3/ul (1.0-4.8); ABS Monocytes 2.1 10^3/ul (0-0.8); ABS Neutrophils 3.2 10^3/ul (1.5-7.7); ABS Nucleated RBC 0.1 10^3/ul; Eosinophil % 0.4 %; Lymphocyte % 10.6 %; Nucleated Red Blood Cells % 2.3
[2019-06-29 05:56] LABS: Polychromasia 1+
[2019-06-29] MEDS: Acyclovir* 400 MG TAB PO SCH ×2 (07:49→19:34)
[2019-06-29] MEDS ORDERED: NS 0.9% 1000 ML** 1,000 ML IV SCH (09:30)
[2019-06-29] MEDS ORDERED: Amiodarone 150 MG IVPREMIX* 150 MG/100 ML BAG IV ONE ×2 (09:58→10:02)
[2019-06-29] MEDS ORDERED: Amiodarone 360 MG IVPREMIX* 360 MG/200 ML BAG IV ONE ×2 (09:58→10:02)
[2019-06-29] MEDS: Pantoprazole IV* 40 MG IV SCH ×2 (10:36→20:45)
[2019-06-29] MEDS ORDERED: Metoprolol Tartrate IV* 1 MG/ML 5 ML VIAL ONE (12:23)
[2019-06-29] MEDS ORDERED: Metoprolol Tartrate IV* 1 MG/ML 5 ML VIAL IV PRN (12:24)
[2019-06-29] MEDS ORDERED: fentaNYL* 50 MCG/ML 2 ML VIAL (100 MCG VIAL) IV SLOW PU ONE ×3 (12:54→14:00)
[2019-06-29] MEDS: fentaNYL* 50 MCG/ML 2 ML VIAL (100 MCG VIAL) ONE ×2 (12:56→14:26)
[2019-06-29] MEDS ORDERED: fentaNYL* 50 MCG/ML 2 ML VIAL (100 MCG VIAL) ONE (14:06)
[2019-06-29] MEDS: RiFAXimin* 550 MG TAB PO SCH ×2 (14:27→19:35)
[2019-06-29] MEDS ORDERED: fentaNYL* 50 MCG/ML 2 ML VIAL (100 MCG VIAL) IV ONE (15:00)
[2019-06-29] MEDS ORDERED: D5W IV ONE ×3 (15:00→20:00)
[2019-06-29] MEDS ORDERED: ACETYLCYSTEINE IV ONE ×3 (15:00→20:00)
--- NOTE | 2019-06-29 15:24 | PN ---
Date of Service: 06/29/19 Critical Care Services: Patient remains obtunded. Our working diagnosis at this time is acute liver failure with hepatic encephalopathy (serum ammonia level = 130-140) - etiology is unclear, but patient was taking max strength tylenol (500 mg/tab) for abdominal pain. There is no evidence of infection at this time. Vital Signs: Temp Pulse Resp BP SpO2 FiO2 97.6 F 128 15 162/148 95 Physical Exam: Gen:Unresponsive to verbal commands, but appears agitated. EENT: Pupils midposition and responsive Lungs: Clear Cardiac: Irreg rhythm Abdomen:Not distended Extremities: No cyanosis or edema. Neuro: No tremors or asterixis. Fluid Balance (Past 24 Hours): 06/28/19 06/29/19 06:59 06:59 Intake Total 4183 3483.4 Output Total 310 863 Balance 3873 2620.4 Weight 180 lb 13.828 oz 184 lb 1.376 oz Intake: IV Fluids 3077 2755 Calcium 60 NS 2849 2594 NS TKO 18 61 Na BICARB 150 Sodium BICARB 100 IVPB 40 307 NS 40 100 NS TKO 207 Medicated IV 114.4 CC - Norepinephrine/ 114.4 Levophed Oral 100 Fresh Frozen Plasma 966 307 Output: Urine Lau 310 863 Other: Estimated Void Medium # Bowel Movements 1 Estimated Stool Amount Medium # Voids 2 Labs: Laboratory Results - last 24 hr 06/27/19 06/28/19 06/28/19 05:44 04:35 15:25 WBC RBC Hgb Hct MCV MCH MCHC RDW Plt Count MPV Neut % (Auto) Lymph % (Auto) [place] % (Auto) Eos % (Auto) Baso % (Auto) Absolute Neuts (auto) Absolute Lymphs (auto) Absolute Monos (auto) Absolute Eos (auto) Absolute Basos (auto) Absolute Nucleated RBC Immature Gran % Neutrophils % Lymphocytes % Reactive Lymphs % Monocytes % Metamyelocytes % Myelocytes % Nucleated RBC % Nucleated RBCs/100 WBC Normal RBC Morphology Polychromasia Hem Pathologist Commnt INR (Anticoag Therapy) VBG pH VBG pCO2 VBG pO2 VBG HCO3 VBG O2 Saturation VBG Base Excess Sodium 141 Potassium 5.0 Chloride 111 Carbon Dioxide 11 L* Anion Gap 19 H BUN 50 H Creatinine 2.81 H Est GFR ( Amer) 27.3 Est GFR (Non-Af Amer) 22.6 BUN/Creatinine Ratio 17.8 Glucose 104 H Lactic Acid Calcium 7.6 L Total Bilirubin 1.70 H AST 947 H ALT 595 H Alkaline Phosphatase 52 Ammonia Total Protein 8.2 Albumin 3.1 L Globulin 5.1 H Albumin/Globulin Ratio 0.6 L Acetaminophen 06/28/19 06/28/19 06/28/19 15:25 15:25 16:35 WBC RBC Hgb Hct MCV MCH MCHC RDW Plt Count MPV Neut % (Auto) Lymph % (Auto) [place] % (Auto) Eos % (Auto) Baso % (Auto) Absolute Neuts (auto) Absolute Lymphs (auto) Absolute Monos (auto) Absolute Eos (auto) Absolute Basos (auto) Absolute Nucleated RBC Immature Gran % Neutrophils % Lymphocytes % Reactive Lymphs % Monocytes % Metamyelocytes % Myelocytes % Nucleated RBC % Nucleated RBCs/100 WBC Normal RBC Morphology Polychromasia Hem Pathologist Commnt INR (Anticoag Therapy) 3.74 H VBG pH 7.28 L VBG pCO2 24 L VBG pO2 46.0 H VBG HCO3 13.5 L VBG O2 Saturation 68.3 L VBG Base Excess -13.6 L Sodium Potassium Chloride Carbon Dioxide Anion Gap BUN Creatinine Est GFR ( Amer) Est GFR (Non-Af Amer) BUN/Creatinine Ratio Glucose Lactic Acid 3.3 H* Calcium Total Bilirubin AST ALT Alkaline Phosphatase Ammonia Total Protein Albumin Globulin Albumin/Globulin Ratio Acetaminophen 06/28/19 06/28/19 06/29/19 21:24 21:24 04:55 WBC 6.1 RBC 2.33 L Hgb 7.7 L Hct 23 L MCV 97 H MCH 33 H MCHC 34 RDW 17 H Plt Count 61 L MPV 7.8 Neut % (Auto) 53.5 Lymph % (Auto) 10.6 [place] % (Auto) 34.3 Eos % (Auto) 0.4 Baso % (Auto) 1.2 Absolute Neuts (auto) 3.2 Absolute Lymphs (auto) 0.6 L Absolute Monos (auto) 2.1 H Absolute Eos (auto) 0.0 Absolute Basos (auto) 0.1 Absolute Nucleated RBC 0.1 Immature Gran % 4.0 Neutrophils % 52.0 Lymphocytes % 20.0 Reactive Lymphs % 8.0 H Monocytes % 16.0 Metamyelocytes % 3.0 H Myelocytes % 1.0 Nucleated RBC % 2.3 Nucleated RBCs/100 WBC 4.0 H Normal RBC Morphology Not Reportable Polychromasia 1+ Hem Pathologist Commnt INR (Anticoag Therapy) VBG pH VBG pCO2 VBG pO2 VBG HCO3 VBG O2 Saturation VBG Base Excess Sodium 144 Potassium 4.8 Chloride 111 Carbon Dioxide 12 L* Anion Gap 21 H BUN 54 H Creatinine 2.95 H Est GFR ( Amer) 25.8 Est GFR (Non-Af Amer) 21.3 BUN/Creatinine Ratio 18.3 Glucose 100 Lactic Acid 3.4 H* Calcium 7.7 L Total Bilirubin AST ALT Alkaline Phosphatase Ammonia Total Protein Albumin Globulin Albumin/Globulin Ratio Acetaminophen 06/29/19 06/29/19 06/29/19 04:55 04:55 09:23 WBC RBC Hgb Hct MCV MCH MCHC RDW Plt Count MPV Neut % (Auto) Lymph % (Auto) [place] % (Auto) Eos % (Auto) Baso % (Auto) Absolute Neuts (auto) Absolute Lymphs (auto) Absolute Monos (auto) Absolute Eos (auto) Absolute Basos (auto) Absolute Nucleated RBC Immature Gran % Neutrophils % Lymphocytes % Reactive Lymphs % Monocytes % Metamyelocytes % Myelocytes % Nucleated RBC % Nucleated RBCs/100 WBC Normal RBC Morphology Polychromasia Hem Pathologist Commnt INR (Anticoag Therapy) 3.53 H VBG pH VBG pCO2 VBG pO2 VBG HCO3 VBG O2 Saturation VBG Base Excess Sodium 144 Potassium 4.6 Chloride 114 H Carbon Dioxide 14 L* Anion Gap 16 H BUN 58 H Creatinine 2.81 H Est GFR ( Amer) 27.3 Est GFR (Non-Af Amer) 22.6 BUN/Creatinine Ratio 20.6 H Glucose 117 H Lactic Acid Calcium 7.5 L Total Bilirubin 1.70 H AST 575 H ALT 527 H Alkaline Phosphatase 46 Ammonia 139 H Total Protein 7.5 Albumin 2.8 L Globulin 4.7 H Albumin/Globulin Ratio 0.6 L Acetaminophen 06/29/19 06/29/19 13:09 13:09 WBC RBC Hgb Hct MCV MCH MCHC RDW Plt Count MPV Neut % (Auto) Lymph % (Auto) [place] % (Auto) Eos % (Auto) Baso % (Auto) Absolute Neuts (auto) Absolute Lymphs (auto) Absolute Monos (auto) Absolute Eos (auto) Absolute Basos (auto) Absolute Nucleated RBC Immature Gran % Neutrophils % Lymphocytes % Reactive Lymphs % Monocytes % Metamyelocytes % Myelocytes % Nucleated RBC % Nucleated RBCs/100 WBC Normal RBC Morphology Polychromasia Hem Pathologist Commnt INR (Anticoag Therapy) VBG pH VBG pCO2 VBG pO2 VBG HCO3 VBG O2 Saturation VBG Base Excess Sodium Potassium Chloride Carbon Dioxide Anion Gap BUN Creatinine Est GFR ( Amer) Est GFR (Non-Af Amer) BUN/Creatinine Ratio Glucose Lactic Acid Calcium Total Bilirubin AST ALT Alkaline Phosphatase Ammonia 140 H Total Protein Albumin Globulin Albumin/Globulin Ratio Acetaminophen < 15 Studies: None today Nutrition: None Impression: 1. Acute hepatic encephalopathy - tylenol remains a possible source (serum level is nontoxic, but this OD would have occurred a few days ago). 2. Renal insufficiency - etiology unclear 3. Rapid Atrial fibrillation Plan: 1. Lactulose via retention enema (patient not tolerating NG tube) 2. IV regimen of N-acetylcysteine for empiric Rx of acetaminophen OD 3. Amiodarone drip for rate control of AFib (Dig has been d/c'd) 4. Monitor serum ammonia levels Critical Care Time: 60 minutes
[2019-06-29] MEDS ORDERED: LORazepam INJ* 2 MG/ML 1 ML VIAL ONE (15:34)
[2019-06-29] MEDS ORDERED: Lorazepam PYXIS KEY ONE (15:34)
[2019-06-29] MEDS ORDERED: LORazepam INJ* 2 MG/ML 1 ML VIAL IV PUSH ONE (15:34)
[2019-06-29] MEDS: Lactulose 300 ML for PR* 200 GM/300 ML BTL PR SCH ×2 (15:41→19:34)
--- NOTE | 2019-06-29 15:59 | CONSULT ---
Palliative / Hospice Consult Ordering Provider: John Thomas - PCP-Ray Referal Reason: Goals of care/lactulose/fentanyl & MS - Subjective Code Status: DNR Advance Directives Location: No Advance Directives MOLST Part A Completed: Yes - on chart MOLST Part E Completed:: Yes - on chart - History or Present Illness History or Present Illness: 68yo male with multiple myeloma in remission presents to ER with c/o GI bleed and elevated INR with recent history of diarrhea for 2 weeks. PMH is significant for multiple myeloma s/p ASCT 02/19/19 on maintenance Revlimid, afib with RVR & atrial appendage thrombus, SBE 2001 complicated by ruptured chordae, MV repair , mod-severe mitral stenosis, severe regurge tricuspid valve, back pain and anemia. PSHx lives alone retired [employer]/jesus, never , no children, social drinker, no drugs, no tobacco, HCP is Shiela a friend(not on chart). Studies Abd xray-neg, abd CT-tiny gallstones, small amt of fluid no abscess, ? proctitis, large lytic lesion sacrum and compression fx T1, GB u/s- cholelithiasis, gallbaldder wall thickening, Echo-EF 65-70%, MV mod to severe stenosis and severe tricuspid regurg, Egd-neg, flex sig-mild proctitis, abd CT- cholelithiasis, diverticulosis and anasarca, H/H 7.7/23, plt 61, BUN/Cr 58/2.81 , egfr 22.6, Ca 7.7, ast 575, alt 527, NH4 139, alb 2.8, lactic acid 3.4 and blood cult staph. epidermiditis. Pt was admitted and transferred to ICU when lactic acid level started to rise concerned with possible sepsis now with hepatic encephalopathy. All history is from friend of patients and medical record. Lab Values: Abnormal Lab Results 06/27/19 06/28/19 06/28/19 05:44 04:35 15:25 WBC RBC Hgb Hct MCV MCH MCHC RDW Plt Count MPV Neut % (Auto) Lymph % (Auto) Nolan % (Auto) Eos % (Auto) Baso % (Auto) Absolute Neuts (auto) Absolute Lymphs (auto) Absolute Monos (auto) Absolute Eos (auto) Absolute Basos (auto) Absolute Nucleated RBC Immature Gran % Neutrophils % Lymphocytes % Reactive Lymphs % Monocytes % Metamyelocytes % Myelocytes % Nucleated RBC % Nucleated RBCs/100 WBC Normal RBC Morphology Polychromasia Hem Pathologist Commnt INR (Anticoag Therapy) VBG pH VBG pCO2 VBG pO2 VBG HCO3 VBG O2 Saturation VBG Base Excess Sodium 141 Potassium 5.0 Chloride 111 Carbon Dioxide 11 L* Anion Gap 19 H BUN 50 H Creatinine 2.81 H Est GFR ( Amer) 27.3 Est GFR (Non-Af Amer) 22.6 BUN/Creatinine Ratio 17.8 Glucose 104 H Lactic Acid Calcium 7.6 L Total Bilirubin 1.70 H AST 947 H ALT 595 H Alkaline Phosphatase 52 Ammonia Total Protein 8.2 Albumin 3.1 L Globulin 5.1 H Albumin/Globulin Ratio 0.6 L Acetaminophen 06/28/19 06/28/19 06/28/19 15:25 15:25 16:35 WBC RBC Hgb Hct MCV MCH MCHC RDW Plt Count MPV Neut % (Auto) Lymph % (Auto) Nolan % (Auto) Eos % (Auto) Baso % (Auto) Absolute Neuts (auto) Absolute Lymphs (auto) Absolute Monos (auto) Absolute Eos (auto) Absolute Basos (auto) Absolute Nucleated RBC Immature Gran % Neutrophils % Lymphocytes % Reactive Lymphs % Monocytes % Metamyelocytes % Myelocytes % Nucleated RBC % Nucleated RBCs/100 WBC Normal RBC Morphology Polychromasia Hem Pathologist Commnt INR (Anticoag Therapy) 3.74 H VBG pH 7.28 L VBG pCO2 24 L VBG pO2 46.0 H VBG HCO3 13.5 L VBG O2 Saturation 68.3 L VBG Base Excess -13.6 L Sodium Potassium Chloride Carbon Dioxide Anion Gap BUN Creatinine Est GFR ( Amer) Est GFR (Non-Af Amer) BUN/Creatinine Ratio Glucose Lactic Acid 3.3 H* Calcium Total Bilirubin AST ALT Alkaline Phosphatase Ammonia Total Protein Albumin Globulin Albumin/Globulin Ratio Acetaminophen 06/28/19 06/28/19 06/29/19 21:24 21:24 04:55 WBC 6.1 RBC 2.33 L Hgb 7.7 L Hct 23 L MCV 97 H MCH 33 H MCHC 34 RDW 17 H Plt Count 61 L MPV 7.8 Neut % (Auto) 53.5 Lymph % (Auto) 10.6 Nolan % (Auto) 34.3 Eos % (Auto) 0.4 Baso % (Auto) 1.2 Absolute Neuts (auto) 3.2 Absolute Lymphs (auto) 0.6 L Absolute Monos (auto) 2.1 H Absolute Eos (auto) 0.0 Absolute Basos (auto) 0.1 Absolute Nucleated RBC 0.1 Immature Gran % 4.0 Neutrophils % 52.0 Lymphocytes % 20.0 Reactive Lymphs % 8.0 H Monocytes % 16.0 Metamyelocytes % 3.0 H Myelocytes % 1.0 Nucleated RBC % 2.3 Nucleated RBCs/100 WBC 4.0 H Normal RBC Morphology Not Reportable Polychromasia 1+ Hem Pathologist Commnt INR (Anticoag Therapy) VBG pH VBG pCO2 VBG pO2 VBG HCO3 VBG O2 Saturation VBG Base Excess Sodium 144 Potassium 4.8 Chloride 111 Carbon Dioxide 12 L* Anion Gap 21 H BUN 54 H Creatinine 2.95 H Est GFR ( Amer) 25.8 Est GFR (Non-Af Amer) 21.3 BUN/Creatinine Ratio 18.3 Glucose 100 Lactic Acid 3.4 H* Calcium 7.7 L Total Bilirubin AST ALT Alkaline Phosphatase Ammonia Total Protein Albumin Globulin Albumin/Globulin Ratio Acetaminophen 06/29/19 06/29/19 06/29/19 04:55 04:55 09:23 WBC RBC Hgb Hct MCV MCH MCHC RDW Plt Count MPV Neut % (Auto) Lymph % (Auto) Nolan % (Auto) Eos % (Auto) Baso % (Auto) Absolute Neuts (auto) Absolute Lymphs (auto) Absolute Monos (auto) Absolute Eos (auto) Absolute Basos (auto) Absolute Nucleated RBC Immature Gran % Neutrophils % Lymphocytes % Reactive Lymphs % Monocytes % Metamyelocytes % Myelocytes % Nucleated RBC % Nucleated RBCs/100 WBC Normal RBC Morphology Polychromasia Hem Pathologist Commnt INR (Anticoag Therapy) 3.53 H VBG pH VBG pCO2 VBG pO2 VBG HCO3 VBG O2 Saturation VBG Base Excess Sodium 144 Potassium 4.6 Chloride 114 H Carbon Dioxide 14 L* Anion Gap 16 H BUN 58 H Creatinine 2.81 H Est GFR ( Amer) 27.3 Est GFR (Non-Af Amer) 22.6 BUN/Creatinine Ratio 20.6 H Glucose 117 H Lactic Acid Calcium 7.5 L Total Bilirubin 1.70 H AST 575 H ALT 527 H Alkaline Phosphatase 46 Ammonia 139 H Total Protein 7.5 Albumin 2.8 L Globulin 4.7 H Albumin/Globulin Ratio 0.6 L Acetaminophen 06/29/19 06/29/19 13:09 13:09 WBC RBC Hgb Hct MCV MCH MCHC RDW Plt Count MPV Neut % (Auto) Lymph % (Auto) Nolan % (Auto) Eos % (Auto) Baso % (Auto) Absolute Neuts (auto) Absolute Lymphs (auto) Absolute Monos (auto) Absolute Eos (auto) Absolute Basos (auto) Absolute Nucleated RBC Immature Gran % Neutrophils % Lymphocytes % Reactive Lymphs % Monocytes % Metamyelocytes % Myelocytes % Nucleated RBC % Nucleated RBCs/100 WBC Normal RBC Morphology Polychromasia Hem Pathologist Commnt INR (Anticoag Therapy) VBG pH VBG pCO2 VBG pO2 VBG HCO3 VBG O2 Saturation VBG Base Excess Sodium Potassium Chloride Carbon Dioxide Anion Gap BUN Creatinine Est GFR ( Amer) Est GFR (Non-Af Amer) BUN/Creatinine Ratio Glucose Lactic Acid Calcium Total Bilirubin AST ALT Alkaline Phosphatase Ammonia 140 H Total Protein Albumin Globulin Albumin/Globulin Ratio Acetaminophen < 15 Laboratory Last Values WBC 6.1 10^3/uL (3.5-10.8) 06/29/19 04:55 RBC 2.33 10^6 /uL (4.18-5.48) L 06/29/19 04:55 Hgb 7.7 g/dL (14.0-18.0) L 06/29/19 04:55 Hct 23 % (42-52) L 06/29/19 04:55 MCV 97 fL (80-94) H 06/29/19 04:55 MCH 33 pg (27-31) H 06/29/19 04:55 MCHC 34 g/dL (31-36) 06/29/19 04:55 RDW 17 % (10-15) H 06/29/19 04:55 Plt Count 61 10^3/uL (150-450) L 06/29/19 04:55 MPV 7.8 fL (7.4-10.4) 06/29/19 04:55 Neut % (Auto) 53.5 % 06/29/19 04:55 Lymph % (Auto) 10.6 % 06/29/19 04:55 Nolan % (Auto) 34.3 % 06/29/19 04:55 Eos % (Auto) 0.4 % 06/29/19 04:55 Baso % (Auto) 1.2 % 06/29/19 04:55 Absolute Neuts (auto) 3.2 10^3/ul (1.5-7.7) 06/29/19 04:55 Absolute Lymphs (auto) 0.6 10^3/ul (1.0-4.8) L 06/29/19 04:55 Absolute Monos (auto) 2.1 10^3/ul (0-0.8) H 06/29/19 04:55 Absolute Eos (auto) 0.0 10^3/ul (0-0.6) 06/29/19 04:55 Absolute Basos (auto) 0.1 10^3/ul (0-0.2) 06/29/19 04:55 Absolute Nucleated RBC 0.1 10^3/ul 06/29/19 04:55 Immature Gran % 4.0 % (0-9) 06/29/19 04:55 Neutrophils % 52.0 % 06/29/19 04:55 Band Neutrophils % 5.0 % (0-8) 06/27/19 05:44 Lymphocytes % 20.0 % 06/29/19 04:55 Reactive Lymphs % 8.0 % (0-6) H 06/29/19 04:55 Monocytes % 16.0 % 06/29/19 04:55 Eosinophils % 1.0 % 06/27/19 05:44 Basophils % 1.0 % 06/28/19 04:35 Metamyelocytes % 3.0 % (0-2) H 06/29/19 04:55 Myelocytes % 1.0 % (0-1) 06/29/19 04:55 Promyelocytes % 2.0 % 06/26/19 04:38 Nucleated RBC % 2.3 06/29/19 04:55 Nucleated RBCs/100 WBC 4.0 (0-0) H 06/29/19 04:55 Normal RBC Morphology Not Reportable 06/29/19 04:55 Polychromasia 1+ 06/29/19 04:55 Hypochromasia 1+ 06/28/19 04:35 Anisocytosis 2+ 06/28/19 04:35 Macrocytosis 1+ 06/27/19 05:44 Elliptocytes 1+ 06/26/19 04:38 Hem Pathologist Commnt 06/29/19 04:55 INR (Anticoag Therapy) 3.53 (0.82-1.09) H 06/29/19 04:55 APTT 33.2 seconds (26.0-38.0) 06/28/19 04:35 VBG pH 7.28 (7.32-7.43) L 06/28/19 16:35 VBG pCO2 24 mmHg (41-51) L 06/28/19 16:35 VBG pO2 46.0 mmHg (35-45) H 06/28/19 16:35 VBG HCO3 13.5 mmol/L (24-28) L 06/28/19 16:35 VBG O2 Saturation 68.3 % (70-80) L 06/28/19 16:35 VBG Base Excess -13.6 mmol/L (0.0-4.0) L 06/28/19 16:35 Sodium 144 mmol/L (135-145) 06/29/19 04:55 Potassium 4.6 mmol/L (3.5-5.0) 06/29/19 04:55 Chloride 114 mmol/L (101-111) H 06/29/19 04:55 Carbon Dioxide 14 mmol/L (22-32) L* 06/29/19 04:55 Anion Gap 16 mmol/L (2-11) H 06/29/19 04:55 BUN 58 mg/dL (6-24) H 06/29/19 04:55 Creatinine 2.81 mg/dL (0.67-1.17) H 06/29/19 04:55 Est GFR ( Amer) 27.3 (>60) 06/29/19 04:55 Est GFR (Non-Af Amer) 22.6 (>60) 06/29/19 04:55 BUN/Creatinine Ratio 20.6 (8-20) H 06/29/19 04:55 Glucose 117 mg/dL (70-100) H 06/29/19 04:55 POC Glucose (mg/dL) 82 mg/dL (70-100) 06/27/19 22:14 Lactic Acid 3.4 mmol/L (0.5-2.0) H* 06/28/19 21:24 Calcium 7.5 mg/dL (8.6-10.3) L 06/29/19 04:55 Total Bilirubin 1.70 mg/dL (0.2-1.0) H 06/29/19 04:55 AST 575 U/L (13-39) H 06/29/19 04:55 ALT 527 U/L (7-52) H 06/29/19 04:55 Alkaline Phosphatase 46 U/L (34-104) 06/29/19 04:55 Ammonia 140 mcmol/L (16-53) H 06/29/19 13:09 Total Protein 7.5 g/dL (6.4-8.9) 06/29/19 04:55 Albumin 2.8 g/dL (3.2-5.2) L 06/29/19 04:55 Globulin 4.7 g/dL (2-4) H 06/29/19 04:55 Albumin/Globulin Ratio 0.6 (1-3) L 06/29/19 04:55 Urine Color Shari 06/27/19 16:56 Urine Appearance Cloudy 06/27/19 16:56 Urine pH 5.0 (5-9) 06/27/19 16:56 Ur Specific [place] 1.027 (1.010-1.030) 06/27/19 16:56 Urine Protein 1+(30 mg/dl) (Negative) A 06/27/19 16:56 Urine Ketones Trace (Negative) A 06/27/19 16:56 Urine Blood Negative (Negative) 06/27/19 16:56 Urine Nitrate Negative (Negative) 06/27/19 16:56 Urine Bilirubin Negative (Negative) 06/27/19 16:56 Urine Urobilinogen Negative (Negative) 06/27/19 16:56 Ur Leukocyte Esterase Negative (Negative) 06/27/19 16:56 Urine WBC (Auto) Trace(0-5/hpf) (Absent) 06/27/19 16:56 Urine RBC (Auto) 1+(3-5/hpf) (Absent) A 06/27/19 16:56 Ur Squamous Epith Cells Present (Absent) A 06/27/19 16:56 Urine Bacteria Absent (Absent) 06/27/19 16:56 Hyaline Casts Present (Absent) A 06/25/19 02:20 Urine Glucose Negative (Negative) 06/27/19 16:56 Acetaminophen < 15 mcg/mL 06/29/19 13:09 Hepatitis A IgM Ab Negative (Negative) 06/27/19 20:00 Hep Bs Antigen Nonreactive (Nonreactive) 06/27/19 20:00 Hep B Core IgM Ab Nonreactive (Nonreactive) 06/27/19 20:00 Hepatitis C Antibody Negative (Negative) 06/27/19 20:00 Hepatitis C Ab Index 0.01 s/c 06/27/19 20:00 Blood Type A Positive 06/25/19 12:30 Antibody Screen Negative 06/25/19 12:30 - Objective Active Medications: Acetaminophen (Tylenol Tab*) 650 mg PO Q6H PRN PRN Reason: PAIN-MILD/TEMP >/= 100.4 Last Admin: 06/24/19 22:53 Dose: 650 mg Acyclovir (Zovirax Tab*) 400 mg PO BID [facility] Last Admin: 06/29/19 07:49 Dose: Not Given Piperacillin Sod/Tazobactam (Sod 3.375 gm/ Sodium Chloride) 100 mls @ 25 mls/ hr IVPB Q8H [facility] Last Admin: 06/29/19 15:11 Dose: 25 mls/hr Sodium Chloride (Ns 0.9% 1000 Ml) 1,000 mls @ 100 mls/hr IV PER RATE [facility] Amiodarone HCl (Nexterone 360 Mg/200 Ml Ivpremix*) 360 mg in 200 mls @ 33.333 mls/hr IV ONCE ONE Stop: 06/29/19 15:57 Last Admin: 06/29/19 10:20 Dose: 33.333 mls/hr Acetylcysteine 12,525 mg/ (Dextrose) 262.625 mls @ 262.625 mls/hr IV ONCE ONE Stop: 06/29/19 15:59 Acetylcysteine 4,175 mg/ (Dextrose) 520.875 mls @ 130.219 mls/hr IV ONCE ONE Stop: 06/29/19 19:59 Acetylcysteine 8,350 mg/ (Dextrose) 1,041.75 mls @ 65.109 mls/hr IV ONCE ONE Stop: 06/30/19 11:59 Lactulose (Lactulose 300 Ml For Pr*) 200 gm UT BID [facility] Last Admin: 06/29/19 15:41 Dose: 200 gm Lidocaine HCl (Lidocaine 2% Jelly*) 1 applic TOPICAL .SEE COMMENTS PRN PRN Reason: SEE COMMENTS Last Admin: 06/28/19 06:02 Dose: 1 applic Lorazepam (Ativan Inj*) 0.5 mg IV PUSH Q4H PRN PRN Reason: Anxiety/insomnia/nausea Last Admin: 06/27/19 16:15 Dose: 0.5 mg Metoprolol Tartrate (Lopressor Iv*) 5 mg IV Q6H PRN PRN Reason: TACHYCARDIA Miscellaneous (Ativan Pyxis Zepeda) 1 ea N/A .ATIVAN IV ZEPEDA PRN PRN Reason: PYXIS ZEPEDA Morphine Sulfate (Morphine 10 Mg/Ml Vial (1 Ml)) 5 mg IV Q2H PRN PRN Reason: PAIN - MODERATE Last Admin: 06/29/19 00:08 Dose: 5 mg Pantoprazole Sodium (Protonix Iv*) 40 mg IV BID [facility] Last Admin: 06/29/19 10:36 Dose: 40 mg Pharmacy Consult (Zosyn Per Pharmacy*) 1 note FOLLOW UP .ZOSYN PER PHARMACY [facility] Rifaximin (Xifaxan*) 550 mg PO BID [facility] Last Admin: 06/29/19 14:27 Dose: Not Given Vital Signs: Vital Signs: Temp Pulse Resp BP Pulse Ox 97.6 F 91 14 134/64 94 06/29/19 12:04 06/29/19 15:01 06/29/19 15:40 06/29/19 15:00 06/29/19 15:01 Patient Weight: Weight 83.5 kg Intake and Output: Intake & Output 06/27/19 06/28/19 06/29/19 06/30/19 06:59 06:59 06:59 06:59 Intake Total 495 4183 3483.4 792 Output Total 0 310 863 65 Balance 495 3873 2620.4 727 Weight 82.039 kg 83.5 kg Intake: IV Fluids 480 3077 2755 792 Calcium 60 NS 480 2849 2594 792 NS TKO 18 61 Na BICARB 150 Sodium BICARB 100 IVPB 40 307 NS 40 100 NS TKO 207 Medicated IV 114.4 CC - Norepinephrine/ 114.4 Levophed Oral 15 100 0 Fresh Frozen Plasma 966 307 Output: Urine 0 Lau 310 863 65 Other: Estimated Void Large Medium # Bowel Movements 0 1 Estimated Stool Amount Medium # Voids 1 2 ADLs: Meal Record Start: 06/24/19 18: 09 Freq: DAILY@0900,1400,1800 Status: Active Protocol: Document 06/24/19 18:00 [id number] (Rec: 06/24/19 18:17 [id number] MED-C16) Created 06/24/19 18:09 System (Rec: 06/24/19 18:09 System MED-C03) Document 06/25/19 09:00 [id number] (Rec: 06/25/19 09:07 [id number] MED-C11) Document 06/25/19 14:00 [id number] (Rec: 06/25/19 15:21 [id number] MED-C11) Document 06/25/19 18:00 HVC3953 (Rec: 06/25/19 18:23 [id number] MED-C11) Document 06/26/19 08:07 [id number] (Rec: 06/26/19 08:07 [id number] MED-C11) Document 06/26/19 14:00 YPW5866 (Rec: 06/26/19 14:19 [id number] MED-C02) Document 06/26/19 17:12 [id number] (Rec: 06/26/19 17:12 [id number] MED-C07) Document 06/27/19 09:00 [id number] (Rec: 06/27/19 10:09 LWA0373 MED-C09) Document 06/27/19 14:00 LOE1716 (Rec: 06/27/19 16:53 [id number] MED-C11) Document 06/27/19 18:00 PZQ3428 (Rec: 06/27/19 20:03 [id number] ICU-C10) Document 06/28/19 09:00 [id number] (Rec: 06/28/19 09:44 HNZ3914 ICU-C10) Document 06/28/19 14:00 QQY1231 (Rec: 06/28/19 15:57 LTM5115 ICU-C10) Document 06/28/19 18:00 [id number] (Rec: 06/28/19 18:06 [id number] ICU-C10) Document 06/29/19 09:00 ZEG6347 (Rec: 06/29/19 10:02 CDK7030 ICU-C10) Document 06/29/19 14:00 AVA8520 (Rec: 06/29/19 14:34 MAD0986 ICU-C10) ADLs: Meal Record Start: 06/27/19 20: 23 Freq: 09,13,18 Status: Complete Protocol: Created 06/27/19 20:23 [id number] (Rec: 06/27/19 20:23 [id number] ICU-C10) Intake and Output Start: 06/24/19 18: 09 Freq: Q1HR Status: Active Protocol: Created 06/24/19 18:09 System (Rec: 06/24/19 18:09 System MED-C03) Document 06/24/19 22:00 [id number] (Rec: 06/24/19 22:56 [id number] MED-C13) Document 06/25/19 05:30 FDP3550 (Rec: 06/25/19 05:31 PFU9326 MED-C09) Document 06/25/19 14:00 WID7635 (Rec: 06/25/19 15:21 UGJ0749 MED-C11) Document 06/25/19 20:02 GZM0831 (Rec: 06/25/19 20:04 PZE5135 MED-C42) Document 06/25/19 22:00 EJD4486 (Rec: 06/25/19 22:53 PVA5149 MED-C09) Document 06/26/19 05:47 QGK9242 (Rec: 06/26/19 05:48 CJN8417 MED-C11) Document 06/26/19 11:15 UDF7814 (Rec: 06/26/19 11:16 HXN4225 MED-C07) Document 06/27/19 06:00 FIZ2384 (Rec: 06/27/19 06:38 UZM5456 MED-C09) Document 06/27/19 14:00 GGX5367 (Rec: 06/27/19 16:53 VYQ6829 MED-C11) Document 06/27/19 18:00 HUD8638 (Rec: 06/27/19 18:05 HQS4068 ICU-M25) Document 06/27/19 19:00 ANK9404 (Rec: 06/28/19 00:37 UVQ0653 ICU-C16) Document 06/27/19 20:00 WNI7648 (Rec: 06/28/19 00:38 IST8126 ICU-C16) Document 06/27/19 21:00 OBC5852 (Rec: 06/28/19 00:38 OSH5821 ICU-C16) Document 06/27/19 21:00 BFA2593 (Rec: 06/28/19 05:22 PTN8601 ICU-C16) Document 06/27/19 21:20 LPU2756 (Rec: 06/28/19 05:23 FXH5311 ICU-C16) Document 06/27/19 22:00 OTI4470 (Rec: 06/28/19 00:38 NAR2275 ICU-C16) Document 06/27/19 22:35 DDO8960 (Rec: 06/28/19 05:23 VGA0944 ICU-C16) Document 06/27/19 23:00 SDF8875 (Rec: 06/28/19 00:39 LXP5089 ICU-C16) Document 06/28/19 00:00 QSE2502 (Rec: 06/28/19 00:39 GTL0186 ICU-C16) Document 06/28/19 01:00 NJY0475 (Rec: 06/28/19 02:11 TDG3558 ICU-C16) Document 06/28/19 02:00 XUP7995 (Rec: 06/28/19 02:12 YZA8965 ICU-C16) Document 06/28/19 03:00 SFL8389 (Rec: 06/28/19 03:03 HIL8003 ICU-C16) Document 06/28/19 04:00 YNH9236 (Rec: 06/28/19 05:18 ALM7318 ICU-C16) Document 06/28/19 05:00 SJM1209 (Rec: 06/28/19 05:23 YMU4098 ICU-C16) Document 06/28/19 05:39 [id number] (Rec: 06/28/19 05:39 HJS8621 ICU-C16) Document 06/28/19 07:00 GRK6085 (Rec: 06/28/19 07:26 ZRK1231 ICU-C16) Document 06/28/19 08:00 PBN6127 (Rec: 06/28/19 09:37 LLS8222 ICU-C10) Document 06/28/19 09:00 EEC2378 (Rec: 06/28/19 09:37 RHQ3717 ICU-C10) Document 06/28/19 10:00 LTA4063 (Rec: 06/28/19 10:06 EGJ6347 ICU-C10) Document 06/28/19 11:00 RMA7693 (Rec: 06/28/19 12:01 MMU7935 ICU-C10) Document 06/28/19 12:00 SAD7671 (Rec: 06/28/19 12:16 ZIV5651 ICU-C10) Document 06/28/19 13:00 DMW2470 (Rec: 06/28/19 14:06 PXJ0891 ICU-C10) Document 06/28/19 14:00 EMH7371 (Rec: 06/28/19 14:06 LZR2194 ICU-C10) Document 06/28/19 15:00 TOH6640 (Rec: 06/28/19 15:33 LAK0056 ICU-M25) Document 06/28/19 16:00 NQM2045 (Rec: 06/28/19 16:14 HRZ2538 ICU-C10) Document 06/28/19 17:00 DHL8379 (Rec: 06/28/19 17:41 MKH0431 ICU-C10) Document 06/28/19 18:00 CKI6068 (Rec: 06/28/19 18:06 VXE0185 ICU-C10) Document 06/28/19 19:00 ODN1616 (Rec: 06/28/19 21:25 [id number] ICU-M25) Document 06/28/19 20:00 WEU7849 (Rec: 06/28/19 21:25 JQV4620 ICU-M25) Document 06/28/19 21:00 IDO2483 (Rec: 06/28/19 21:25 OOU9489 ICU-M25) Document 06/28/19 22:00 QHA3423 (Rec: 06/28/19 22:03 YYR5477 ICU-C16) Document 06/28/19 23:00 BIS2244 (Rec: 06/28/19 23:27 GFG1328 ICU-C16) Document 06/29/19 00:00 SEA9197 (Rec: 06/29/19 02:16 SHE9348 ICU-C16) Document 06/29/19 01:00 RRA1803 (Rec: 06/29/19 02:17 NVV3009 ICU-C16) Document 06/29/19 02:00 GSU7249 (Rec: 06/29/19 02:18 KAJ4018 ICU-C16) Document 06/29/19 03:00 MDL7885 (Rec: 06/29/19 03:12 FTS8683 ICU-C16) Document 06/29/19 04:00 RLY3414 (Rec: 06/29/19 04:17 CBB2391 ICU-C16) Document 06/29/19 05:00 DYU7238 (Rec: 06/29/19 05:11 NPQ4334 ICU-M25) Document 06/29/19 05:40 BKF0910 (Rec: 06/29/19 05:42 OZB8409 ICU-C16) Document 06/29/19 07:00 TGP8884 (Rec: 06/29/19 07:19 XGV7243 ICU-M35) Document 06/29/19 08:00 NLH8548 (Rec: 06/29/19 10:00 DSH2435 ICU-C10) Document 06/29/19 09:00 LYY8747 (Rec: 06/29/19 10:02 RTV4037 ICU-C10) Document 06/29/19 10:00 CVN1841 (Rec: 06/29/19 10:03 CCQ3529 ICU-C10) Document 06/29/19 11:00 HDK1080 (Rec: 06/29/19 11:08 QWY7551 ICU-C10) Document 06/29/19 13:00 CHC4775 (Rec: 06/29/19 13:20 IPD8102 ICU-C10) Document 06/29/19 14:00 PWW5471 (Rec: 06/29/19 14:34 PHJ9317 ICU-C10) Document 06/29/19 15:00 XVL9270 (Rec: 06/29/19 15:20 WDP5280 ICU-C10) Intake and Output Start: 06/27/19 20: 23 Freq: Q1HR Status: Complete Protocol: Created 06/27/19 20:23 [id number] (Rec: 06/27/19 20:23 [id number] ICU-C10) Ears/Nose/Mouth/Throat: NL Teeth, Lips, Gums, Clear Oropharnyx Neck: NL Appearance and Movements; NL JVP, Trachea Midline Cardiovascular: - - irregularly rate and rhythm, faint murmur Respiratory: Symmetrical Chest Expansion and Respiratory Effort, Clear to Auscultation Abdominal: NL Sounds; No Tenderness; No Distention Extremities: - - 1+pitting edema Neurological: - - obtunded and moaning - Assessment Assessment: 68yo male with multiple myeloma in remission admitted with hepatic encephalopathy - Plan Consult Plan (MU): Palliative Plan: Long discussion with friend Shiela ([phone]) about pt and his goals. Shiela is his HCP/SDM and lives close by and checks on pt frequently. Pt has MOLST DNI/ DNR on the chart. Shiela was updated on pts' condition by m1a1 tank crewman and myself. If pt does recover from this acute episode he may benefit from [facility], she would be interested in [place] [facility] or [facility]. If he does not improve, will discuss other options. Pt does have a sister he doesn't speak with and another sister who is in residential care. KPS 80%, PPS 80 - Time On Unit Date of Evaluation: 06/29/19 Hospice Consult Time in: 12:00 Hospice Consult Time Out: 13:30 Hospice Consult Time Total: 90 > 50% of Time Spend In Counseling or Coordinating Care: Yes
[2019-06-29] MEDS: LORazepam INJ* 2 MG/ML 1 ML VIAL IV PUSH PRN (19:13)
[2019-06-29] MEDS: ZOSYN 3.375 GM IVPB SCH ×2 (20:46)
[2019-06-30] MEDS: Lactated Ringers 1000 ML Bag* 1,000 ML IV SCH ×2 (02:30→11:42)
[2019-06-30] MEDS: ZOSYN 3.375 GM IVPB SCH ×4 (02:40→09:36)
[2019-06-30] MEDS: LORazepam INJ* 2 MG/ML 1 ML VIAL IV PUSH PRN ×4 (02:45→23:12)
[2019-06-30] MEDS: Morphine 10 MG/ML VIAL (1 ml) IV PRN ×2 (04:55→10:08)
[2019-06-30 05:03] LABS: Hematocrit 23 % (42-52); Mean Corpuscular HGB Conc 35 g/dL (31-36); Mean Corpuscular Hemoglobin 33 pg (27-31); Mean Corpuscular Volume 97 fL (80-94); Mean Platelet Volume 8.3 fL (7.4-10.4); Platelet Count 47 10^3/uL (150-450); Red Cell Distribution Width 17 % (10-15); White Blood Count 5.4 10^3/uL (3.5-10.8)
[2019-06-30 05:21] LABS: Albumin 2.5 g/dL (3.2-5.2); Albumin/Globulin Ratio 0.6 (1-3); BUN/Creatinine Ratio 25.7 (8-20); Calcium 7.9 mg/dL (8.6-10.3); EGFR African American 31.4 (>60); EGFR Non-African American 25.9 (>60); Globulin 4.2 g/dL (2-4); Indirect Bilirubin 0.8 mg/dL (0.3-1.0); Potassium 3.6 mmol/L (3.5-5.0); Total Bilirubin 1.8 mg/dL (0.2-1.0); Total Protein 6.7 g/dL (6.4-8.9)
--- NOTE | 2019-06-30 05:31 | PN ---
Progress Note - Progress Note Date of Service: 06/29/19 SOAP: NOTE for 06/29/19 Subjective: []He is not responsive today. Breathing appears distressed. Events: Moved to ICU yesterday, fluid resuscitation and Abx. Was not hypotensive. Pressors for dropping UO. No fevers Acetaminophen (Tylenol Tab*) 650 mg PO Q6H PRN PRN Reason: PAIN-MILD/TEMP >/= 100.4 Last Admin: 06/24/19 22:53 Dose: 650 mg Acyclovir (Zovirax Tab*) 400 mg PO BID [facility] Last Admin: 06/29/19 19:34 Dose: Not Given Sodium Chloride (Ns 0.9% 1000 Ml) 1,000 mls @ 100 mls/hr IV PER RATE [facility] Acetylcysteine 8,350 mg/ (Dextrose) 1,041.75 mls @ 65.109 mls/hr IV ONCE ONE Stop: 06/30/19 11:59 Last Admin: 06/29/19 21:08 Dose: 65.109 mls/hr Lactated Ringer's (Lactated Ringers 1000 Ml Bag*) 1,000 mls @ 125 mls/hr IV PER RATE [facility] Piperacillin Sod/Tazobactam (Sod 3.375 gm/ Sodium Chloride) 100 mls @ 200 mls/ hr IVPB Q6H [facility] Last Admin: 06/30/19 02:40 Dose: 200 mls/hr Lactulose (Lactulose 300 Ml For Pr*) 200 gm WA BID [facility] Last Admin: 06/29/19 19:34 Dose: Not Given Lidocaine HCl (Lidocaine 2% Jelly*) 1 applic TOPICAL .SEE COMMENTS PRN PRN Reason: SEE COMMENTS Last Admin: 06/28/19 06:02 Dose: 1 applic Lorazepam (Ativan Inj*) 0.5 mg IV PUSH Q4H PRN PRN Reason: Anxiety/insomnia/nausea Last Admin: 06/30/19 02:45 Dose: 0.5 mg Lorazepam (Ativan Inj*) 1 mg IV PUSH Q4H PRN PRN Reason: AGITATION Last Admin: 06/29/19 19:13 Dose: 1 mg Metoprolol Tartrate (Lopressor Iv*) 5 mg IV Q6H PRN PRN Reason: TACHYCARDIA Miscellaneous (Ativan Pyxis Irizarry) 1 ea N/A .ATIVAN IV IRIZARRY PRN PRN Reason: PYXIS IRIZARRY Morphine Sulfate (Morphine 10 Mg/Ml Vial (1 Ml)) 5 mg IV Q2H PRN PRN Reason: PAIN - MODERATE Last Admin: 06/29/19 22:09 Dose: 5 mg Pantoprazole Sodium (Protonix Iv*) 40 mg IV BID [facility] Last Admin: 06/29/19 20:45 Dose: 40 mg Pharmacy Consult (Zosyn Per Pharmacy*) 1 note FOLLOW UP .ZOSYN PER PHARMACY [facility] Rifaximin (Xifaxan*) 550 mg PO BID [facility] Last Admin: 06/29/19 19:35 Dose: Not Given Objective: [] Vital Signs Temp Pulse Resp BP Pulse Ox 98.2 F 113 16 135/71 94 06/30/19 03:32 06/30/19 04:01 06/30/19 04:47 06/30/19 04:00 06/30/19 04:01 06/28/19 UO 323 Exam: Gen: Not responsive. localizes to pain. HEENT: OM dry, pulsing veins skull CV: Tachy 150 Resp: rapid and central sounds Abd: distended, but soft with hypoactive BS no abd tenderness on exam Ext: +1 PATRICIA, ext warm. Skin: no bruising or other rash] EGD: no ulcerations, no venous congestion. Felx sig neg Assessment: [This is a 68 yo male with MM s/p ASCT 02/19/19 who recently started maintenance revlimid anticoagulated with Coumadin for afib who presented with melena and supratherapeutic INR on 06/26. Hbg decreased from 12 go 8.0, INR 7 on admission. After admission, Hgb stable, EGD and Flex sig w/o active bleeding. Hgb subsequently stable. 06/28 developed progressive MS change, metabolic acidosis with increased LA. Sepsis protcol and CT with possible inflamed GB. US + DBC dilation. Transferred to ICU. Laboratory evaluation with marked increase in LFTs starting 06/27/19, increased Cr, decreased plts. Ammonia level elevated today. DDx: Still suspect sepsis and cholicystitis and event on 06/27 that caused acute deterioration. No other clear etiology for transaminitis. Possible acute hypotension not documented, other etiology for acute liver failure. Will follow for response to Abx. Concurrent possible relapse of MM. Plan: [1. Sepsis secondary to acute cholecystitis - normotensive and afebrile - follow on Abx - Consider percutaneous drain GB once stable 2. GIB. Stable and will need full colonoscopy if he improves. - Hgb is stable over the last 48 hours 3. Acute liver failure - peyman accounts for change in MS - starting lactulose 3. Thrombocytopenia - plts fell to 80K - may be due to revlimid v sepsis, favor sepsis at this time due to picture of acute illness 4. HUSSEIN. Sepsis vs HRS. Hydration and follow. 5. Hepatic - Follow for improvement on abx and supportive care - Quesion of proceeding, occult, liver disease. - accounts for marked increase in INR. 6. Afib> hold anticoagulation and rate control at this time. - TTE repeated yesterday shows R sided heart failure and moderate to severe mitral stenosis, LV fxn is intact 7. MM. Is disease free to our knowledge and has a good prognosis from cancer, median 5-10 year survivial - Increase in globulin, may have recurrent disease driving current decompensation - re-send serologic studies today. - hold Revlimid 8. DNR DNI but do not recommend de-escalation of care
[2019-06-30] MEDS: Metoprolol Succinate XL TAB* 25 MG PO SCH (07:47)
[2019-06-30] MEDS: Morphine TAB Extended Release (*) 15 MG TAB.ER PO SCH (07:48)
[2019-06-30] MEDS: Lactulose 300 ML for PR* 200 GM/300 ML BTL PR SCH (08:52)
[2019-06-30] MEDS: Pantoprazole IV* 40 MG IV SCH ×2 (09:35→20:50)
[2019-06-30] MEDS: RiFAXimin* 550 MG TAB PO SCH (09:36)
[2019-06-30] MEDS: Acyclovir* 400 MG TAB PO SCH (09:36)
[2019-06-30] MEDS ORDERED: NS 0.9% IVPB SCH (10:00)
[2019-06-30] MEDS ORDERED: ACYCLOVIR IVPB SCH (10:00)
[2019-06-30] MEDS: Lidocaine 2% JELLY* 6 ML JELLY TOPICAL PRN (10:50)
[2019-06-30] MEDS: Metoprolol Tartrate IV* 1 MG/ML 5 ML VIAL IV PRN ×2 (10:50→21:08)
[2019-06-30] MEDS: Thiamine INJ* 500 MG in NS 0.9% 250 ML* 250 ML IV SCH (10:52)
--- NOTE | 2019-06-30 11:09 | PN ---
Progress Note - Progress Note Date of Service: 06/29/19 Note: LATE ENTRY: pt seen and examined at 10:30 am, 06-29-19 events of weekend noted pt lethargic, alert, but not oriented; per friend, he seems more uncomfortable VS: 98.9, 154/87, 120 appears slightly uncomfortable, will open eyes, but not oriented +bs, softly distended, diffuse mild tenderness, more on R, no R/G labs: ammonia 140, wbc 6.1, hgb 7.7 plts 61, BUN 58, Cr 2.81, INR 3.74---->3.53 viral hep panel negative 68 yo with sepsis secondary to ?, presumend gallbladder; pt refusing perc drain; surgery has seen; CT with likely ischemic colitis, increased transaminases, likely ischemic hepatits; jocelin d/w pt's friend; palliative care seeing pt; from GI standpoint, no active bleeding; supportive care, IV abx, IV fluids will follow Matty Silver MD [facility]
[2019-06-30 11:53] LABS: Magnesium 2.1 mg/dL (1.9-2.7); Phosphorus 5.5 mg/dL (2.5-5.0)
--- NOTE | 2019-06-30 15:19 | PN ---
Date of Service: 06/30/19 Critical Care Services: Patient continues to be unresponsive. Neurology consult agress with probable Dx of hepatic encephalopathy and possible link to acetaminophen ingestion - patient has received IV NAC and unable to give lactulose. Liver transaminases decreased today, and ammonia down from 140 to 94. Biliary sepsis also possible , and patient receiving PIP/TAZO. Vital Signs: Temp Pulse Resp BP SpO2 FiO2 99.5 F 117 19 126/86 92 Physical Exam: Gen:Unresponsive HEENT:Pupils midposition and reactive Lungs: Scattered rhonchi Cardiac: Irreg rhythm Abdomen: Not distended Extremities:No cyanosis or edema Neuro:No tremors or focal findings. Fluid Balance (Past 24 Hours): 06/29/19 06/30/19 06:59 06:59 Intake Total 3483.4 3889 Output Total 863 80 Balance 2620.4 3809 Weight 184 lb 1.376 oz 185 lb 8.547 oz Intake: IV Fluids 2755 2279 ABX - ZOSYN Calcium LR NS 2594 792 NS TKO 61 126 Na BICARB RL 1361 Sodium BICARB 100 Thiamine acetylcysteine IVPB 307 304 ABX - ZOSYN NS 100 NS TKO 207 304 Thiamine Medicated IV 114.4 1306 Acetylcysteine 1306 CC - Norepinephrine/ 114.4 Levophed Oral 0 Fresh Frozen Plasma 307 Output: Lau 863 80 Other: Estimated Void Date of Last Bowel 06/30/2019 Movement # Bowel Movements 1 Estimated Stool Amount Small # Voids Labs: Laboratory Results - last 24 hr 06/29/19 06/30/19 06/30/19 04:55 04:35 04:35 WBC RBC Hgb Hct MCV MCH MCHC RDW Plt Count MPV Hem Pathologist Commnt Sodium 147 H Potassium 3.6 Chloride 116 H Carbon Dioxide 17 L Anion Gap 14 H BUN 64 H Creatinine 2.49 H Est GFR ( Amer) 31.4 Est GFR (Non-Af Amer) 25.9 BUN/Creatinine Ratio 25.7 H Glucose 145 H Calcium 7.9 L Phosphorus 5.5 H Magnesium 2.1 Total Bilirubin 1.80 H Direct Bilirubin 1.00 H Indirect Bilirubin 0.8 AST 241 H ALT 394 H Alkaline Phosphatase 42 Ammonia 94 H Total Protein 6.7 Albumin 2.5 L Globulin 4.2 H Albumin/Globulin Ratio 0.6 L Triglycerides 128 09/24/19 04:35 WBC 5.4 RBC 2.40 L Hgb 8.0 L Hct 23 L MCV 97 H MCH 33 H MCHC 35 RDW 17 H Plt Count 47 L MPV 8.3 Hem Pathologist Commnt Sodium Potassium Chloride Carbon Dioxide Anion Gap BUN Creatinine Est GFR ( Amer) Est GFR (Non-Af Amer) BUN/Creatinine Ratio Glucose Calcium Phosphorus Magnesium Total Bilirubin Direct Bilirubin Indirect Bilirubin AST ALT Alkaline Phosphatase Ammonia Total Protein Albumin Globulin Albumin/Globulin Ratio Triglycerides Studies: Head CT (ordered) Nutrition: TPN started today Impression: 1. Encephalopathy - most likely hepatic, but sepsis also possible 2. Acute liver failure - doubt ischemic hepatitis (no hypotension or other evidence of hemodynamic compromise) - still possible link to acetaminophen. 3. ? Biliary sepsis - all cultures negative so far. 4. Atrial fibrillation - better rate control today Plan: 1. Head CT 2. Empirix Rx meningitis with ceftriaxone (per neurology) 3. Finish IV NAC protocol. 4. Continue antibiotics for biliary sepsis 5. Restart digitalis for afib 6. Empiric Rx for acute Wernicke's (500 mg thiamine daily for 3 days) Critical Care Time: 70 minutes (including time taken to present case to neurology service)
[2019-06-30] MEDS: cefTRIAXone(*) 2 GM in NS 0.9% 100 ML* 100 ML IVPB SCH (15:57)
[2019-06-30] MEDS: fentaNYL* 50 MCG/ML 2 ML VIAL (100 MCG VIAL) IV SLOW PU PRN ×2 (15:57→21:40)
[2019-06-30] MEDS: TPN CENTRAL STANDARD BASE A CENTR SCH ×13 (16:16)
[2019-06-30 17:19] LABS: TSH (Thyroid Stimulating Horm) 1.99 mcIU/mL (0.34-5.60)
[2019-06-30] MEDS: ZOSYN 3.375 GM Q8H per EXTENDED INFUSION IVPB SCH ×2 (18:00)
[2019-06-30 18:28] LABS: Immunoglobulin A 39 mg/dL (61 - 356); Immunoglobulin G 3770 mg/dL (767 - 1590); Immunoglobulin M 24 mg/dL (37 - 286)
--- NOTE | 2019-06-30 18:55 | CONS ---
CC: Dr. Samy Soto * NEUROLOGY CONSULTATION: DATE OF CONSULT: 06/30/19 LOCATION: He is an inpatient, ICU bed 1. REFERRING PROVIDER: Dr. John Thomas. CHIEF COMPLAINT: Coma. HISTORY OF PRESENT ILLNESS: Eliot Hernandez is a 68-year-old man who has a complex past and recent medical history. He presented to the emergency room on 06/24/19 after being evaluated at [facility]. He had been experiencing abdominal pain for several days and developed dark tarry stools. He had 2 weeks of diarrhea. He was admitted to the hospital. His initial laboratory studies were notable for a white blood cell count of 9.9, which was relatively high for him, hemoglobin of 10, and a platelet count of 107,000. He has been treated for multiple myeloma with induction therapy this past year. His initial laboratory studies on 06/24/19 were notable for normal liver enzymes , and elevated creatinine at 1.2, which had been climbing over the past week from looking at historical values, and a normal BUN. He did not have a fever and has remained afebrile throughout his hospital stay. He was evaluated by [facility]ology [facility] Surgery and perhaps he had cholecystitis but it is not clear that there was a definitive diagnosis made for his initial abdominal problems. Subsequently, his liver enzymes started to climb such that by , his AST had reached 947 and has since come down to 241. He had a lactic acidosis when it was first checked on 06/27/19 at 4.3 and it climbed to a max of 5.1 and is down to 3.4 as of 06/28/19. His total bilirubin shakira as well and is 1.8 as of this morning, which is stable over the last 3 days or so. His healthcare proxy, Shiela, is at the bedside. 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 She states he was probably taking more Tylenol lately because he was trying to get off of his morphine. She states they kept very detailed records of the medicines he was taking and hopes to get into his home to obtain those records. PAST MEDICAL HISTORY: Otherwise notable for chronic atrial fibrillation, on anticoagulation; multiple myeloma presenting as a sacral mass in the fall of 2018. He received radiation to the sacral mass and then induction chemotherapy. He has been on Revlimid recently. He has been on prophylactic acyclovir. He has had a mitral valve replacement. MEDICATIONS: Current medications consist of: 1. Lorazepam 1 mg IV push q.4 hours as needed for agitation. 2. Metoprolol 5 mg IV q.6 hours p.r.n. tachycardia. 3. Morphine sulfate 4 mg IV q.4 hours for severe pain. 4. He has been given 500 mg of thiamine IV starting today. 5. He is on Zosyn. 6. Protonix 40 mg IV b.i.d. 7. He has just started parenteral nutrition today. REVIEW OF SYSTEMS: Through his healthcare proxy and friend Shiela. He does not drink alcohol at all. He continued to have a lot of pain in his spine in spite of myeloma being under control and that was affecting his quality of life. Reviewed some physical therapy notes and he had some improvement earlier this year and being able to walk short distances with some improvement over time. PHYSICAL EXAM: On examination, the patient is in the ICU bed. His heart rate is running 80 to 114, blood pressure is about 120/60, respiratory rate fluctuates from 14 to 24. He has a periodic breathing. When he pulls out for an apneic episode, he tends to yell out in pain. His skin is very pale. He has some inspissated secretions in his pharynx. He has some edema in his legs and feet. I do not see any embolic phenomenon. Heart tones are irregular without murmurs. I do not hear any cervical bruits. Neurologic Exam: Pupils react fairly sluggishly from about 3.5 down to 2.5 mm. Eye movements remain mid position with no spontaneous eye movements. Other than groaning out in pain at the end of his periodic breathing cycle, he is nonverbal. He is not intubated. Facial musculature is symmetric. He does not have corneal reflexes, but he has a pretty brisk response to nasal tickle bilaterally with facial grimacing and some brief eye movements. On motor exam, he has withdrawal to painful stimuli in the arms, he has some mild triple flexion response to deep pain in the nail beds in his feet. There is no myoclonus noted. He grimaces and yells out to pain stimuli in all 4 extremity nail bed pressure. He is areflexic. He has bilateral Babinski signs. Funduscopic exam reveals fairly unremarkable disks. I can see the right one better than left and I do not see any papilledema there. The left one, I do not have as good a view of. LABORATORY DATA: Extensive laboratory studies are reviewed and included in part in the history of present illness. As of today, his renal function is fairly stable with a creatinine of 2.49 and BUN of 64. His carbon dioxide is 17 and he has an anion gap of 14. Sodium is 147, calcium 7.9 this morning with an albumin of 2.5. His ammonia level was elevated at 139 yesterday, repeat several hours later was 140. This morning, it was 94. A TSH on 06/26/19 was normal at 2.45. IMPRESSION AND PLAN: Impression is that of hepatic encephalopathy, I cannot rule out the possibility of a central nervous system infection. His liver enzymes were normal when he came in and he was apparently taking a lot of Tylenol and had a lot of back pain, so my suspicion is he developed acute hepatic injury from acetaminophen excess. His ammonia level is quite high and Dr. Thomas was not able to get lactulose in him either orally or rectally but is going to double that effort. Recommend getting a CT of the brain without contrast to make sure he did not have a hemorrhage or to see if there is evidence of cerebral edema. A lumbar puncture would be very hazardous as his INR is elevated, he is on Coumadin, and his platelet count has dropped. I brought that up with his healthcare proxy, Shiela, and she states he would not want a lumbar puncture done. I suggested that that Dr. Thomas is covering him for bacterial meningitis as well. I have discussed my impression with Dr. Thomas and also with Shiela. I will continue to follow him along with you. TIME SPENT: Over 60 minutes of ICU time was spent in evaluating Mr. Hernandez and discussing it with his healthcare team. [id number]/[facility] #: [id number] ZEYAD
[2019-06-30 19:20] LABS: Lambda Free Light Chain 38.2 mg/dL
[2019-06-30] MEDS ORDERED: Digoxin IV* 0.5 MG/2 ML AMP (0.25 MG/ML) IV SLOW PU ONE (23:05)
[2019-07-01] MEDS ORDERED: Acetaminophen SUPP* 325 MG SUPP PR PRN (01:29)
[2019-07-01] MEDS ORDERED: Metoprolol Tartrate IV* 1 MG/ML 5 ML VIAL IV ONE ×2 (01:31→23:50)
[2019-07-01] MEDS: ZOSYN 3.375 GM Q8H per EXTENDED INFUSION IVPB SCH ×6 (02:06→17:22)
[2019-07-01] MEDS: Morphine INJ* 4 MG/ML 1 ML SYRINGE (NEW SYRINGE VERSION) IV PRN ×3 (03:03→14:02)
[2019-07-01] MEDS: cefTRIAXone(*) 2 GM in NS 0.9% 100 ML* 100 ML IVPB SCH ×2 (03:24→15:26)
[2019-07-01 05:49] LABS: Hematocrit 25 % (42-52); Hemoglobin 8.5 g/dL (14.0-18.0); Mean Corpuscular HGB Conc 35 g/dL (31-36); Mean Corpuscular Hemoglobin 34 pg (27-31); Mean Corpuscular Volume 98 fL (80-94); Mean Platelet Volume 8.4 fL (7.4-10.4); Platelet Count 62 10^3/uL (150-450); Red Blood Count 2.53 10^6 /uL (4.18-5.48); Red Cell Distribution Width 17 % (10-15); White Blood Count 7.1 10^3/uL (3.5-10.8)
[2019-07-01 06:00] LABS: Albumin 2.5 g/dL (3.2-5.2); Albumin/Globulin Ratio 0.6 (1-3); BUN/Creatinine Ratio 29.9 (8-20); Calcium 8.5 mg/dL (8.6-10.3); EGFR African American 47.4 (>60); EGFR Non-African American 39.2 (>60); Globulin 4.4 g/dL (2-4); Indirect Bilirubin 0.5 mg/dL (0.3-1.0); Magnesium 2.1 mg/dL (1.9-2.7); Phosphorus 3.7 mg/dL (2.5-5.0); Potassium 3.6 mmol/L (3.5-5.0); Total Bilirubin 1.4 mg/dL (0.2-1.0); Total Protein 6.9 g/dL (6.4-8.9)
[2019-07-01] MEDS: fentaNYL* 50 MCG/ML 2 ML VIAL (100 MCG VIAL) IV SLOW PU PRN ×3 (07:49→23:31)
[2019-07-01] MEDS: Pantoprazole IV* 40 MG IV SCH ×2 (07:58→20:47)
[2019-07-01] MEDS: Thiamine INJ* 500 MG in NS 0.9% 250 ML* 250 ML IV SCH (07:58)
[2019-07-01] MEDS: Metoprolol Tartrate IV* 1 MG/ML 5 ML VIAL IV PRN ×3 (08:00→21:51)
[2019-07-01 09:42] LABS: INR 1.73 (0.82-1.09)
[2019-07-01] MEDS: LORazepam INJ* 2 MG/ML 1 ML VIAL IV PUSH PRN ×2 (11:17→22:42)
[2019-07-01] MEDS ORDERED: Phytonadione IV (Adult)* 10 MG/ML 1 ML AMP IV ONE (11:30)
[2019-07-01] MEDS ORDERED: Phytonadione 10 mg in 50 mL NS over 30 min IV ONE (12:00)
[2019-07-01 12:23] LABS: Albumin 2.9 g/dL (3.4-4.7); Albumin/Globulin Ratio 0.62; Gamma Globulin 3.1 g/dL (0.6-1.6); Total Protein(PEP) 7.6 g/dL (6.3 - 7.9)
[2019-07-01] MEDS ORDERED: Metoprolol Tartrate IV* 1 MG/ML 5 ML VIAL ONE (12:26)
[2019-07-01] MEDS: Digoxin IV* 0.5 MG/2 ML AMP (0.25 MG/ML) IV SLOW PU SCH (14:23)
[2019-07-01 14:33] LABS: INR 1.96 (0.82-1.09)
--- NOTE | 2019-07-01 14:48 | PN ---
Date of Service: 07/01/19 Critical Care Services: Patient remains comatose with liver enzymes decreasing. However, ammonia remains elevated. We were able to place NG tube this AM and have started lactulose and rifaximin. Vital Signs: Temp Pulse Resp BP SpO2 FiO2 101.7 F 120 25 141/71 97 Physical Exam: Gen:Unresponsive and tachypneic HEENT: Oropharynx not injected. No adenopathy. Lungs: Scaterred rhonchi. No crackles Cardiac: Irreg rate. Abdomen:Not distended Extremities: No cyanosis. 1+ edema both LE's. Neuro: No asterixis Fluid Balance (Past 24 Hours): 06/30/19 07/01/19 06:59 06:59 Intake Total 3889 2518 Output Total 80 1700 Balance 3809 818 Weight 185 lb 8.547 oz 184 lb 7.163 oz Intake: IV Fluids 2279 2128 ABX - ZOSYN 130 LR 1246 NS 792 NS TKO 126 170 RL 1361 Sodium BICARB Thiamine 54 acetylcysteine 528 IVPB 304 390 ABX - ZOSYN 113 NS NS TKO 304 Thiamine 277 Medicated IV 1306 Acetylcysteine 1306 CC - Norepinephrine/ Levophed TPN/PPN Oral 0 Fresh Frozen Plasma Output: Lau 80 1700 Other: Estimated Void Large Date of Last Bowel 06/30/2019 Movement # Bowel Movements 1 Estimated Stool Amount Small # Voids 1 Labs: Laboratory Results - last 24 hr 06/29/19 06/30/19 06/30/19 09:28 16:10 16:22 WBC RBC Hgb Hct MCV MCH MCHC RDW Plt Count MPV INR (Anticoag Therapy) Sodium Potassium Chloride Carbon Dioxide Anion Gap BUN Creatinine Est GFR ( Amer) Est GFR (Non-Af Amer) BUN/Creatinine Ratio Glucose POC Glucose (mg/dL) 138 H Calcium Phosphorus Magnesium Total Bilirubin Direct Bilirubin Indirect Bilirubin AST ALT Alkaline Phosphatase Ammonia Total Protein Total Protein (PEP) 7.6 Albumin Albumin (PEP) 2.9 L Globulin Albumin/Globulin Ratio Albumin/Globulin (PEP) 0.62 Kdeiv-1-Omhjtkbwg 0.2 Rnhgp-9-Tmjlgfnkw 0.7 Rjoz-7-Uqlzpmnt 0.6 L Jjhz-1-Qbvsblqbakucy 18.60 H Gamma Globulins 3.1 H M-Burton Not Reportable M-Burton 2 2.9 PEP Impression See comment Triglycerides Vitamin B12 > 1450 H TSH 1.99 IgG 3770 H IgA 39 L IgM 24 L [place] Light Chain 0.2570 L Lambda Light Chain 38.2 H [place]/Lambda Ratio 0.0067 L 06/30/19 07/01/19 07/01/19 20:39 01:33 05:28 WBC RBC Hgb Hct MCV MCH MCHC RDW Plt Count MPV INR (Anticoag Therapy) Sodium 147 H Potassium 3.6 Chloride 119 H Carbon Dioxide 22 Anion Gap 6 BUN 52 H Creatinine 1.74 H Est GFR ( Amer) 47.4 Est GFR (Non-Af Amer) 39.2 BUN/Creatinine Ratio 29.9 H Glucose 185 H POC Glucose (mg/dL) 196 H 208 H Calcium 8.5 L Phosphorus 3.7 Magnesium 2.1 Total Bilirubin 1.40 H Direct Bilirubin 0.90 H Indirect Bilirubin 0.5 AST 170 H ALT 336 H Alkaline Phosphatase 42 Ammonia Total Protein 6.9 Total Protein (PEP) Albumin 2.5 L Albumin (PEP) Globulin 4.4 H Albumin/Globulin Ratio 0.6 L Albumin/Globulin (PEP) Vrbrx-8-Nqsbiglvv Eyhgq-0-Omwrocpjd Rzua-4-Cusbysdc Wcgg-0-Qsiblhbgmeagr Gamma Globulins M-Burton M-Burton 2 PEP Impression Triglycerides 217 Vitamin B12 TSH IgG IgA IgM [place] Light Chain Lambda Light Chain [place]/Lambda Ratio 07/01/19 07/01/19 07/01/19 05:28 05:28 09:22 WBC 7.1 RBC 2.53 L Hgb 8.5 L Hct 25 L MCV 98 H MCH 34 H MCHC 35 RDW 17 H Plt Count 62 L MPV 8.4 INR (Anticoag Therapy) 1.73 H Sodium Potassium Chloride Carbon Dioxide Anion Gap BUN Creatinine Est GFR ( Amer) Est GFR (Non-Af Amer) BUN/Creatinine Ratio Glucose POC Glucose (mg/dL) Calcium Phosphorus Magnesium Total Bilirubin Direct Bilirubin Indirect Bilirubin AST ALT Alkaline Phosphatase Ammonia 111 H Total Protein Total Protein (PEP) Albumin Albumin (PEP) Globulin Albumin/Globulin Ratio Albumin/Globulin (PEP) Wcadj-6-Sumpertdk Inwwv-1-Hflzwqqqk Rvkf-1-Sfrzfbfl Wwaa-1-Eorrybbasrafq Gamma Globulins M-Burton M-Burton 2 PEP Impression Triglycerides Vitamin B12 TSH IgG IgA IgM [place] Light Chain Lambda Light Chain [place]/Lambda Ratio 0907/01/19 07/01/19 09:25 13:54 13:55 WBC RBC Hgb Hct MCV MCH MCHC RDW Plt Count MPV INR (Anticoag Therapy) 1.96 H Sodium Potassium Chloride Carbon Dioxide Anion Gap BUN Creatinine Est GFR ( Amer) Est GFR (Non-Af Amer) BUN/Creatinine Ratio Glucose POC Glucose (mg/dL) 178 H > 444 H* Calcium Phosphorus Magnesium Total Bilirubin Direct Bilirubin Indirect Bilirubin AST ALT Alkaline Phosphatase Ammonia Total Protein Total Protein (PEP) Albumin Albumin (PEP) Globulin Albumin/Globulin Ratio Albumin/Globulin (PEP) Rbxmc-5-Tgafopydh Wkfnt-0-Cgjbovcju Cbcl-7-Qjzbkrdv Ilmx-2-Ltidswwwosvnd Gamma Globulins M-Burton M-Burton 2 PEP Impression Triglycerides Vitamin B12 TSH IgG IgA IgM [place] Light Chain Lambda Light Chain [place]/Lambda Ratio Studies: CXR Post-procedure: No infiltrates. Nutrition: TPN Impression: 1. Continued mental status changes - still considering hepatic encephalopathy as a likely culprit. Doubt septic encephalopathy and doubt a MACHINE [employer] infection ( although I cannot r/o the latter). 2. New-onset fever - possible sources are IV lines, lungs, and urine. Plan: 1. Lactulose and rifaximin Rx started. 2. Central line removed and replaced at a new venipuncture site. 3. Blood and urine cultures. 4. Vitamin K to reverse prolonged INR and then consider LP. Patient's healthcare proxy at bedside and informed of current condition. Critical Care Time: 60 minutes (including time to discuss case with oncology and neurology services).
[2019-07-01 15:07] LABS: Urine Appearance Turbid; Urine Bacteria Absent (Absent); Urine Bilirubin Negative (Negative); Urine Blood 3+ (Negative); Urine Color Yellow; Urine Glucose Negative (Negative); Urine Ketones Negative (Negative); Urine Nitrite Negative (Negative); Urine Protein 2+(100 mg/dL) (Negative); Urine Red Blood Cell 2+(6-10/hpf) (Absent); Urine Specific Gravity 1.019 (1.010-1.030); Urine Uric Acid Crystals Present (Absent); Urine Urobilinogen Negative (Negative); Urine White Blood Cell Trace(0-5/hpf) (Absent)
[2019-07-01] MEDS: TPN CENTRAL STANDARD BASE A CENTR SCH ×13 (17:00)
--- NOTE | 2019-07-01 19:56 | CONS ---
NEUROLOGY FOLLOWUP CONSULT: DATE OF FOLLOWUP: 07/01/19 LOCATION: He is in intensive care unit. DIGITAL IMAGING TECHNICIAN: Dr. John Thomas. CHIEF COMPLAINT: Unresponsiveness. INTERVAL HISTORY: Since yesterday, there has been no change clinically in Mr. Hernandez. He has required some morphine for pain. His laboratory parameters have improved in several respects. MEDICATIONS: Currently consists of: 1. Ceftriaxone 2 g IV q.12 hours. 2. Digoxin 0.125 mg IV q. day. 3. Fentanyl IV q.4 hours as needed for pain. 4. Lactulose 30 mg NG tube q.i.d. 5. Lorazepam 1 mg IV q.4 hours as needed for agitation. 6. Metoprolol 5 mg IV q.6 hours as needed for tachycardia. 7. Protonix IV 40 mg b.i.d. 8. Zosyn per pharmacy protocol. 9. Rifaximin 550 mg p.o. b.i.d. 10. Thiamine 500 mg IV q. day. PHYSICAL EXAMINATION: On exam, he remains stuporous if not obtunded. He has developed a temperature with most recent one 101.1 by Lau probe, blood pressure 130/62, heart rates in the 90s. Respiratory rate is cyclic and is recorded at 23 with oxygen saturation 96% on supplemental oxygen. Heart tones are distant. Neck is supple. He is sedated, and when it is diminished, he still does not respond other than to pain. Eye movements are disconjugate. He has periodic breathing. He moans intermittently at ends of cycle of the periodic breathing. He responds to pain in his nail beds with grimacing symmetrically. DIAGNOSTIC STUDIES/LAB DATA: Laboratory data today notable for hemoglobin which is stable at 8.5, hematocrit 25, white blood cell count this morning 7.1. Platelet count remains low but stable at 62. Chemistries today notable for glucose most recently 199, his sodium is stable at 147, BUN at 52 and creatinine at 1.74 which is a little bit improved. Total bilirubin is a little bit lower than yesterday at 1.4, AST is 170 and ALT 336 which is an improvement. His ammonia remains elevated at 111 and is a little higher than it was yesterday. IMPRESSION: Impression remains that of hepatic encephalopathy. There is some improvement in his hepatic parameters, and so hopefully his ammonia will start to come down with the addition of lactulose. If he does not improve and particularly with his fever, then we have to reconsider the possibility of a lumbar puncture. Currently, he has bacterial coverage for meningitis, but with his immune suppression, there is a broad number of possibilities. He would have to have his coagulation parameters corrected before that could be done. I will continue to follow him along with you. I have discussed my impression with Dr. Thomas. [id number]/[facility] #: [id number] [facility]PITALEsthela
[2019-07-01] MEDS: RiFAXimin* 550 MG TAB PO SCH (21:51)
[2019-07-02] MEDS ORDERED: Albuterol 2.5 MG/3 ML NEB.SOL* (0.083%) INH PRN (01:56)
[2019-07-02] MEDS: cefTRIAXone(*) 2 GM in NS 0.9% 100 ML* 100 ML IVPB SCH ×2 (02:30→15:50)
[2019-07-02] MEDS: ZOSYN 3.375 GM Q8H per EXTENDED INFUSION IVPB SCH ×8 (04:50→20:41)
[2019-07-02 06:08] LABS: Hematocrit 25 % (42-52); Hemoglobin 8.2 g/dL (14.0-18.0); Mean Corpuscular HGB Conc 33 g/dL (31-36); Mean Corpuscular Hemoglobin 34 pg (27-31); Mean Corpuscular Volume 102 fL (80-94); Red Blood Count 2.46 10^6 /uL (4.18-5.48); Red Cell Distribution Width 18 % (10-15); White Blood Count 9.1 10^3/uL (3.5-10.8)
[2019-07-02 06:27] LABS: Albumin 2.5 g/dL (3.2-5.2); Albumin/Globulin Ratio 0.6 (1-3); BUN/Creatinine Ratio 27.2 (8-20); Calcium 8.8 mg/dL (8.6-10.3); EGFR African American 45.6 (>60); EGFR Non-African American 37.7 (>60); Globulin 4.5 g/dL (2-4); Indirect Bilirubin 0.6 mg/dL (0.3-1.0); Magnesium 2.2 mg/dL (1.9-2.7); Phosphorus 4.4 mg/dL (2.5-5.0); Potassium 4.3 mmol/L (3.5-5.0); Total Bilirubin 2.1 mg/dL (0.2-1.0)
[2019-07-02 07:33] LABS: Mean Platelet Volume 9.1 fL (7.4-10.4); Platelet Count 41 10^3/uL (150-450)
[2019-07-02] MEDS: fentaNYL* 50 MCG/ML 2 ML VIAL (100 MCG VIAL) IV SLOW PU PRN ×9 (08:27→22:41)
[2019-07-02] MEDS: Metoprolol Tartrate IV* 1 MG/ML 5 ML VIAL IV PRN ×3 (08:28→22:41)
[2019-07-02] MEDS: RiFAXimin* 550 MG TAB PO SCH ×2 (08:28→20:41)
[2019-07-02] MEDS: Pantoprazole IV* 40 MG IV SCH ×2 (08:28→20:41)
--- NOTE | 2019-07-02 08:43 | PN ---
Progress Note - Progress Note Date of Service: 07/02/19 SOAP: Subjective: yelling out/moaning. incoherent. increased O2 needs over night, now weaning down. frequent stools since lactulose started yesterday afternoon. Objective: Vital Signs Temp Pulse Resp BP Pulse Ox 100.2 F 113 30 139/73 99 07/02/19 07:30 07/02/19 07:30 07/02/19 08:27 07/02/19 07:30 07/02/19 07:30 lying flat, moaning not following comands, withdraws to painfulstimuli bl UE edema and ecchymoses tachycardic relatively clear anteriorly soft, moans diffusely when touched Laboratory Results - last 24 hr 06/29/19 07/01/19 07/01/19 09:28 09:22 09:25 WBC RBC Hgb Hct MCV MCH MCHC RDW Plt Count MPV INR (Anticoag Therapy) 1.73 H Sodium Potassium Chloride Carbon Dioxide Anion Gap BUN Creatinine Est GFR ( Amer) Est GFR (Non-Af Amer) BUN/Creatinine Ratio Glucose POC Glucose (mg/dL) 178 H Lactic Acid Calcium Phosphorus Magnesium Total Bilirubin Direct Bilirubin Indirect Bilirubin AST ALT Alkaline Phosphatase Ammonia Total Protein Total Protein (PEP) 7.6 Albumin Albumin (PEP) 2.9 L Globulin Albumin/Globulin Ratio Albumin/Globulin (PEP) 0.62 Wzmpq-8-Houhntuyl 0.2 Bvaes-5-Setvznyky 0.7 Xvrd-6-Jlnutlve 0.6 L Gamma Globulins 3.1 H M-Burton Not Reportable M-Burton 2 2.9 PEP Impression See comment Urine Color Urine Appearance Urine pH Ur Specific [place] Urine Protein Urine Ketones Urine Blood Urine Nitrate Urine Bilirubin Urine Urobilinogen Ur Leukocyte Esterase Urine WBC (Auto) Urine RBC (Auto) Uric Acid Crystals Urine Bacteria Urine Glucose 07/02/19 07/02/19 07/02/19 05:45 05:45 05:45 WBC 9.1 RBC 2.46 L Hgb 8.2 L Hct 25 L MCV 102 H MCH 34 H MCHC 33 RDW 18 H Plt Count 41 L MPV 9.1 INR (Anticoag Therapy) Sodium 150 H Potassium 4.3 Chloride 124 H Carbon Dioxide 21 L Anion Gap 5 BUN 49 H Creatinine 1.80 H Est GFR ( Amer) 45.6 Est GFR (Non-Af Amer) 37.7 BUN/Creatinine Ratio 27.2 H Glucose 144 H POC Glucose (mg/dL) Lactic Acid Calcium 8.8 Phosphorus 4.4 Magnesium 2.2 Total Bilirubin 2.10 H Direct Bilirubin 1.50 H Indirect Bilirubin 0.6 AST 150 H ALT 267 H Alkaline Phosphatase 44 Ammonia 134 H Total Protein 7.0 Total Protein (PEP) Albumin 2.5 L Albumin (PEP) Globulin 4.5 H Albumin/Globulin Ratio 0.6 L Albumin/Globulin (PEP) Ciema-7-Mdncybwqg Cxafa-0-Ghijgosuf Newq-9-Nfgjdevi Gamma Globulins M-Burton M-Burton 2 PEP Impression Urine Color Urine Appearance Urine pH Ur Specific [place] Urine Protein Urine Ketones Urine Blood Urine Nitrate Urine Bilirubin Urine Urobilinogen Ur Leukocyte Esterase Urine WBC (Auto) Urine RBC (Auto) Uric Acid Crystals Urine Bacteria Urine Glucose Laboratory Tests 07/01/19 13:55 INR (Anticoag Therapy) 1.96 H Albuterol (Ventolin 2.5 Mg/3 Ml Neb.Audra*) 2.5 mg INH Q4H PRN PRN Reason: SOB/WHEEZING Digoxin (Digoxin Iv*) 0.125 mg IV SLOW PU DAILY@1700 EV Last Admin: 07/01/19 14:23 Dose: 0.125 mg Fentanyl Citrate (Fentanyl*) 50 mcg IV SLOW PU Q3H PRN PRN Reason: PAIN - SEVERE Last Admin: 07/02/19 08:27 Dose: 50 mcg Heparin Sodium (Porcine) (Heparin Flush Picc/Ml/Cvc(*)) 1 - 3 ml FLUSH 0600, 1800 EV; Protocol Last Admin: 07/02/19 06:15 Dose: 1 ml Thiamine HCl 500 mg/ Sodium (Chloride) 255 mls @ 255 mls/hr IV DAILY EV Stop: 07/03/19 10:00 Last Admin: 07/01/19 07:58 Dose: 255 mls/hr Dextrose 500 ml/ Amino Acids 850 ml/ Sterile Water 150 ml/Fat Emulsion Intravenous 250 ml/ Sodium Chloride 100 meq/Potassium Chloride 50 meq/Potassium Phosphate 15 mmole/Calcium Gluconate 15 meq/Magnesium Sulfate 10 meq/ Multivitamins 10 ml/ Trace Metals 1 ml/ Phytonadione 0.2 mg/ Nutrition ( Parenteral) 1,850.821 mls @ 77.118 mls/hr CENTR 1700 EV; Protocol Last Admin: 07/01/19 17:00 Dose: 77.118 mls/hr Ceftriaxone Sodium 2 gm/ (Sodium Chloride) 100 mls @ 200 mls/hr IVPB Q12H [facility] Last Admin: 07/02/19 02:30 Dose: 200 mls/hr Piperacillin Sod/Tazobactam (Sod 3.375 gm/ Sodium Chloride) 100 mls @ 25 mls/ hr IVPB 0400,1200,2000 [facility] Last Admin: 07/02/19 04:50 Dose: 25 mls/hr Lactulose (Lactulose*) 30 ml NG TUBE QID [facility] Last Admin: 07/02/19 08:28 Dose: 30 ml Lidocaine HCl (Lidocaine 2% Jelly*) 1 applic TOPICAL .SEE COMMENTS PRN PRN Reason: SEE COMMENTS Last Admin: 06/30/19 10:50 Dose: 1 applic Lorazepam (Ativan Inj*) 1 mg IV PUSH Q4H PRN PRN Reason: AGITATION Last Admin: 07/01/19 22:42 Dose: 1 mg Metoprolol Tartrate (Lopressor Iv*) 5 mg IV Q6H PRN PRN Reason: TACHYCARDIA Last Admin: 07/02/19 08:28 Dose: 5 mg Miscellaneous (Ativan Pyxis Irizarry) 1 ea N/A .ATIVAN IV IRIZARRY PRN PRN Reason: PYXIS IRIZARRY Pantoprazole Sodium (Protonix Iv*) 40 mg IV BID [facility] Last Admin: 07/02/19 08:28 Dose: 40 mg Pharmacy Consult (Zosyn Per Pharmacy*) 1 note FOLLOW UP .ZOSYN PER PHARMACY [facility] Rifaximin (Xifaxan*) 550 mg PO BID [facility] Last Admin: 07/02/19 08:28 Dose: 550 mg Assessment: 68 yo male with MM s/p ASCT 02/19/19 who recently started maintenance revlimid anticoagulated with Coumadin for afib who presented with melena and supratherapeutic INR on 06/26 but course complicated by development of encephalopathy AFTER admission of unclear etiology, along with markedly elevated liver enzymes and ammonia. DDx: sepsis without clear source (?gallbladder), though no documented hypotension, vs tylenol related JAIL (tylenol level undetectable but several days after admission) Plan: 1. 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 GIB. Stable and will need full colonoscopy IF he improves. 3. Acute liver failure, unclear etiology - starting lactulose and rifaximin0, if MS does not improve with improvement in ammonia or ammonia does not come down with this we will strongly need to consider de-escalation of care 3. Thrombocytopenia -likely related to liver failure and whatever underlying process is driving this , +/- revlimid 4. Afib> hold anticoagulation and rate control at this time. 5. MM. clear relapse of disease relatively shortly after transplant (M-spike 3 g /dL) portends poorer prognosis from MM than initially anticipated. this is further rationale to de-escalate care if does not improve in near furture -holding all therapy now 6. DNR DNI
[2019-07-02] MEDS: Thiamine INJ* 500 MG in NS 0.9% 250 ML* 250 ML IV SCH (09:54)
--- NOTE | 2019-07-02 09:56 | PN ---
Date of Service: 07/02/19 Critical Care Services: 1. Continues to be unresponsive, but ammonia still elevated at 134 mcmol/L. Is on lactulose (30 ml q 4H) and rifaximin (550 mf BID). 2. Temp down since replacing central line with PICC catheter - Tmax past 24 hrs is 100.2. 3. There is a myeloma protein spike, indicating active disease. Vital Signs: Temp Pulse Resp BP SpO2 FiO2 100.2 F 113 30 139/73 99 50 Physical Exam: Gen:Unresponsive and tachypneic HEENT: Oropharynx not injected. Nasogastric feeding tube in place. Lungs: Scattered rhonchi. No crackles or wheezes Cardiac: Irreg rhythm (A fib) Abdomen: Not distended Extremities: Warm. No cyanosis or edema Neuro:No focal deficits. Fluid Balance (Past 24 Hours): 06/30/19 07/01/19 07/02/19 06:59 06:59 06:59 Intake Total 3889 2518 4073 Output Total 80 1700 1368 Balance 3809 818 2705 Weight 185 lb 8.547 oz 184 lb 7.163 oz 181 lb 10.574 oz Intake: IV Fluids 2279 2128 387 ABX - ZOSYN 130 LR 1246 NS 792 NS TKO 126 170 387 RL 1361 Thiamine 54 acetylcysteine 528 IVPB 304 390 815 ABX - ZOSYN 113 283 NS TKO 304 277 Thiamine 277 255 Medicated IV 1306 Acetylcysteine 1306 TPN/PPN 2821 Oral 0 0 NG Tube Irrigate Amount 50 Output: Lau 80 1700 1368 Other: Estimated Void Large Date of Last Bowel 06/30/2019 07/01/19 Movement # Bowel Movements 1 1 Estimated Stool Amount Small Medium # Voids 1 Labs: Laboratory Results - last 24 hr 06/29/19 07/01/19 07/01/19 09:28 13:54 13:55 WBC RBC Hgb Hct MCV MCH MCHC RDW Plt Count MPV INR (Anticoag Therapy) 1.96 H Sodium Potassium Chloride Carbon Dioxide Anion Gap BUN Creatinine Est GFR ( Amer) Est GFR (Non-Af Amer) BUN/Creatinine Ratio Glucose POC Glucose (mg/dL) > 444 H* Lactic Acid Calcium Phosphorus Magnesium Total Bilirubin Direct Bilirubin Indirect Bilirubin AST ALT Alkaline Phosphatase Ammonia Total Protein Total Protein (PEP) 7.6 Albumin Albumin (PEP) 2.9 L Globulin Albumin/Globulin Ratio Albumin/Globulin (PEP) 0.62 Drjbf-3-Bejfeyzrd 0.2 Qodpu-2-Oaaaixuwp 0.7 Eagz-5-Abxjkntv 0.6 L Gamma Globulins 3.1 H M-Burton Not Reportable M-Burton 2 2.9 PEP Impression See comment Urine Color Urine Appearance Urine pH Ur Specific [place] Urine Protein Urine Ketones Urine Blood Urine Nitrate Urine Bilirubin Urine Urobilinogen Ur Leukocyte Esterase Urine WBC (Auto) Urine RBC (Auto) Uric Acid Crystals Urine Bacteria Urine Glucose 07/01/19 07/01/19 07/01/19 13:57 14:34 17:24 WBC RBC Hgb Hct MCV MCH MCHC RDW Plt Count MPV INR (Anticoag Therapy) Sodium Potassium Chloride Carbon Dioxide Anion Gap BUN Creatinine Est GFR ( Amer) Est GFR (Non-Af Amer) BUN/Creatinine Ratio Glucose POC Glucose (mg/dL) 199 H 191 H Lactic Acid Calcium Phosphorus Magnesium Total Bilirubin Direct Bilirubin Indirect Bilirubin AST ALT Alkaline Phosphatase Ammonia Total Protein Total Protein (PEP) Albumin Albumin (PEP) Globulin Albumin/Globulin Ratio Albumin/Globulin (PEP) Xfxxk-5-Yugryxgxv Dtyzv-4-Jzicuwfwt Jyax-4-Dbvijtau Gamma Globulins M-Burton M-Burton 2 PEP Impression Urine Color Yellow Urine Appearance Turbid Urine pH 5.0 Ur Specific [place] 1.019 Urine Protein 2+(100 mg/dl) A Urine Ketones Negative Urine Blood 3+ A Urine Nitrate Negative Urine Bilirubin Negative Urine Urobilinogen Negative Ur Leukocyte Esterase Trace A Urine WBC (Auto) Trace(0-5/hpf) Urine RBC (Auto) 2+(6-10/hpf) A Uric Acid Crystals Present A Urine Bacteria Absent Urine Glucose Negative 07/01/19 07/02/19 07/02/19 21:06 05:45 05:45 WBC RBC Hgb Hct MCV MCH MCHC RDW Plt Count MPV INR (Anticoag Therapy) Sodium 150 H Potassium 4.3 Chloride 124 H Carbon Dioxide 21 L Anion Gap 5 BUN 49 H Creatinine 1.80 H Est GFR ( Amer) 45.6 Est GFR (Non-Af Amer) 37.7 BUN/Creatinine Ratio 27.2 H Glucose 144 H POC Glucose (mg/dL) 183 H Lactic Acid Calcium 8.8 Phosphorus 4.4 Magnesium 2.2 Total Bilirubin 2.10 H Direct Bilirubin 1.50 H Indirect Bilirubin 0.6 AST 150 H ALT 267 H Alkaline Phosphatase 44 Ammonia 134 H Total Protein 7.0 Total Protein (PEP) Albumin 2.5 L Albumin (PEP) Globulin 4.5 H Albumin/Globulin Ratio 0.6 L Albumin/Globulin (PEP) Ojdfj-8-Sojddpdwe Syzcb-6-Okvtnjomi Yyto-7-Cjnlboyp Gamma Globulins M-Burton M-Burton 2 PEP Impression Urine Color Urine Appearance Urine pH Ur Specific [place] Urine Protein Urine Ketones Urine Blood Urine Nitrate Urine Bilirubin Urine Urobilinogen Ur Leukocyte Esterase Urine WBC (Auto) Urine RBC (Auto) Uric Acid Crystals Urine Bacteria Urine Glucose 07/02/19 07/02/19 05:45 05:45 WBC 9.1 RBC 2.46 L Hgb 8.2 L Hct 25 L MCV 102 H MCH 34 H MCHC 33 RDW 18 H Plt Count 41 L MPV 9.1 INR (Anticoag Therapy) Sodium Potassium Chloride Carbon Dioxide Anion Gap BUN Creatinine Est GFR ( Amer) Est GFR (Non-Af Amer) BUN/Creatinine Ratio Glucose POC Glucose (mg/dL) Lactic Acid 1.8 Calcium Phosphorus Magnesium Total Bilirubin Direct Bilirubin Indirect Bilirubin AST ALT Alkaline Phosphatase Ammonia Total Protein Total Protein (PEP) Albumin Albumin (PEP) Globulin Albumin/Globulin Ratio Albumin/Globulin (PEP) Ycxqc-9-Xohvhpqmg Iksjh-2-Mkksnoqfb Ojrd-0-Zwcapmwf Gamma Globulins M-Burton M-Burton 2 PEP Impression Urine Color Urine Appearance Urine pH Ur Specific [place] Urine Protein Urine Ketones Urine Blood Urine Nitrate Urine Bilirubin Urine Urobilinogen Ur Leukocyte Esterase Urine WBC (Auto) Urine RBC (Auto) Uric Acid Crystals Urine Bacteria Urine Glucose Impression: 1. Continued encephalopathy - presumed to be hepatic in origin. Unable to perform LP because of coagulopathy, but this is considered a low-yield procedure , and healthcare proxy claims patient would not want the procedure. 2. Relapse of the multiple myeloma (which has prognostic significance) 3. Hypernatremia without hypovolemia Plan: 1. Increase lactulose to 60 ml QID. 2. D/C TPN and start enteral tube feedings 3. Correct hypernatremia with water flushes through NG tube 4. Oncology service actively involved in the care of this patient, and they agree with current management plan. Prognosis is very poor in this case, particularly in light of myeloma activity. Critical Care Time: 60 minutes
[2019-07-02] MEDS ORDERED: fentaNYL* 50 MCG/ML 2 ML VIAL (100 MCG VIAL) ONE (10:25)
[2019-07-02] MEDS: LORazepam INJ* 2 MG/ML 1 ML VIAL IV PUSH PRN (13:25)
[2019-07-02] MEDS: Digoxin IV* 0.5 MG/2 ML AMP (0.25 MG/ML) IV SLOW PU SCH (17:46)
[2019-07-02 21:09] LABS: Mitochondria M2 Antibody <0.1 U
[2019-07-03] MEDS: fentaNYL* 50 MCG/ML 2 ML VIAL (100 MCG VIAL) IV SLOW PU PRN ×6 (00:13→09:00)
[2019-07-03] MEDS: cefTRIAXone(*) 2 GM in NS 0.9% 100 ML* 100 ML IVPB SCH (01:30)
[2019-07-03] MEDS: LORazepam INJ* 2 MG/ML 1 ML VIAL IV PUSH PRN ×2 (02:58→09:00)
[2019-07-03] MEDS: ZOSYN 3.375 GM Q8H per EXTENDED INFUSION IVPB SCH ×2 (04:15)
[2019-07-03 04:34] LABS: Hematocrit 24 % (42-52); Hemoglobin 7.8 g/dL (14.0-18.0); Mean Corpuscular HGB Conc 33 g/dL (31-36); Mean Corpuscular Hemoglobin 33 pg (27-31); Mean Corpuscular Volume 100 fL (80-94); Mean Platelet Volume 9.1 fL (7.4-10.4); Platelet Count 47 10^3/uL (150-450); Red Blood Count 2.35 10^6 /uL (4.18-5.48); Red Cell Distribution Width 18 % (10-15); White Blood Count 6.5 10^3/uL (3.5-10.8)
[2019-07-03 04:48] LABS: Albumin 2.6 g/dL (3.2-5.2); Albumin/Globulin Ratio 0.6 (1-3); BUN/Creatinine Ratio 22.1 (8-20); Calcium 8.7 mg/dL (8.6-10.3); EGFR African American 29.5 (>60); EGFR Non-African American 24.3 (>60); Globulin 4.6 g/dL (2-4); Magnesium 2.2 mg/dL (1.9-2.7); Phosphorus 3.7 mg/dL (2.5-5.0); Total Bilirubin 1.6 mg/dL (0.2-1.0); Total Protein 7.2 g/dL (6.4-8.9)
[2019-07-03] MEDS: Metoprolol Tartrate IV* 1 MG/ML 5 ML VIAL IV PRN (05:53)
[2019-07-03] MEDS: Pantoprazole IV* 40 MG IV SCH (08:29)
[2019-07-03] MEDS: RiFAXimin* 550 MG TAB PO SCH (08:30)
[2019-07-03] MEDS: Thiamine INJ* 500 MG in NS 0.9% 250 ML* 250 ML IV SCH (09:09)
[2019-07-03] MEDS ORDERED: Lactated Ringers 1000 ML Bag* 1,000 ML IV SCH ×2 (09:58→10:00)
[2019-07-03] MEDS ORDERED: Lorazepam PYXIS KEY PRN (10:43)
[2019-07-03] MEDS ORDERED: LORazepam INJ* 2 MG/ML 1 ML VIAL IV PUSH PRN (10:45)
[2019-07-03] MEDS ORDERED: Morphine 10 MG/ML VIAL (1 ml) IV ONE (11:00)
[2019-07-03] MEDS ORDERED: Morphine PCA 5 MG/ML * Titrate per Protocol PCA SCH (11:00)
[2019-07-03] MEDS ORDERED: LORazepam INJ* 2 MG/ML 1 ML VIAL IV PUSH ONE (11:00)
[2019-07-03 13:24] VITALS: BP 168/89
[2019-07-03 14:14] LABS: Smooth Muscle Antibody Negative (Negative)
--- NOTE | 2019-07-03 15:22 | PN ---
Progress Note - Progress Note Date of Service: 07/03/19 SOAP: Subjective: []non responsive, appears comfortable at this time. proxy and veterinarian laboratory animal care in room. Morphine Sulfate (Morphine Radiography Technician Adult* 5 Mg/Ml) 30 mls @ 2 mls/hr DATA REDUCTION TECHNICIAN Q15H EV; Protocol Last Admin: 07/03/19 11:58 Dose: 2 mls/hr Lorazepam (Ativan Inj*) 4 mg IV PUSH Q1H PRN PRN Reason: AGITATION Miscellaneous (Ativan Pyxis Irizarry) 1 ea N/A .PYXIS IRIZARRY PRN PRN Reason: PER PROTOCOL Objective: [] Vital Signs Temp Pulse Resp BP Pulse Ox 99.5 F 120 27 168/89 75 07/03/19 11:31 07/03/19 14:00 07/03/19 14:00 07/03/19 11:31 07/03/19 14:00 Exam: Gen: Not responsive. localizes to pain. HEENT: OM dry, pulsing veins skull CV: Tachy 150 Resp: rapid and central sounds, vapotherm Abd: distended, but soft with hypoactive BS no abd tenderness on exam Ext: +1 PATRICIA, ext warm. Skin: no bruising or other rash] Assessment: [This is a 68 yo male with MM s/p ASCT 02/19/19 who recently started maintenance revlimid anticoagulated with Coumadin for afib who presented with melena and supratherapeutic INR on 06/26. Hbg decreased from 12 go 8.0, INR 7 on admission. Continued deterioration over past week and no no responsive with progressive renal failure and liver failure. Blood work on Saturday shows recurrent myeloma on heals of transplantation. Discussed that he has very poor prognosis disease and I do not see improvement from current state. His know whishes are to avoid prolonged care and poor QOL. Plan: [We decided to transition to comfort care, no additional intervention and withdrawal call care not designed to assist with palliation.
--- NOTE | 2019-07-03 20:20 | DS ---
SUMMARY: DATE OF ADMISSION: 06/25/19 DATE OF : 07/03/19 HOSPITAL COURSE: This was a 68-year-old white male with a history of multiple myeloma, who was admitted with abdominal pain and diarrhea. Initial workup including endoscopy was mostly negative except for areas of bowel ischemia. While in the hospital, the patient developed altered mental status and was brought to the intensive care unit because of increasing obtundation. Subsequent evaluation revealed possible cholecystitis with gallstones on a CT scan and thickening of the gallbladder wall with pericholecystic fluid. In addition, it was noted that liver enzymes had increased and the patient's serum ammonia level was 140. The diagnosis of acute liver failure with hepatic encephalopathy was entertained at that time and the patient was placed on lactulose and rifaximin. Broad-spectrum antibiotic coverage had also been started for the presumed biliary sepsis. The patient's mental status continued to deteriorate and evaluation of the patient's underlying multiple myeloma revealed a new M spike, which indicated active disease. The patient remained comatose despite treatment for the hyperammonemia, and it was felt that the combination of the persistent coma and the activity of the multiple myeloma carried a very poor prognosis. The patient's healthcare proxy (a former ) was informed of the poor prognosis, and she requested "comfort measures only" care, which was instituted on 07/03/19. Shortly after removing all support except for analgesic relief, the patient developed asystole. The time of was 2:45 p.m. on 07/03/19. The patient's healthcare proxy was present at the time of and an autopsy was denied. FINAL DIAGNOSES: 1. Biliary sepsis. 2. Possible ischemic hepatitis. 3. Liver failure with hyperammonemia. 4. Hepatic encephalopathy. 5. Multiple myeloma. 6. Atrial fibrillation. [id number]/[facility] #: [id number] [facility]ITALEsthela
== END 2019-07-03 14:45 | disposition expired | DRG 871 ==
LOC: MED 18:05 → OBSVTOIN 06-25 09:51 → ICU 06-27 18:00
PROVIDERS: ADMIT Internal Medicine Hematology & Oncology; ATTEND Internal Medicine Hematology & Oncology
PROC: 30233K1 Transfusion of Nonautologous Frozen Plasma into Peripheral Vein, Percutaneous Approach (ICD-10-PCS; principal; 2019-06-25)
PROC: 05HN33Z Insertion of Infusion Device into Left Internal Jugular Vein, Percutaneous Approach (ICD-10-PCS; 2019-06-27)
PROC: 0DJ08ZZ Inspection of Upper Intestinal Tract, Via Natural or Artificial Opening Endoscopic (ICD-10-PCS; 2019-06-27)
PROC: 0DBP8ZX Excision of Rectum, Via Natural or Artificial Opening Endoscopic, Diagnostic (ICD-10-PCS; 2019-06-27)
DX: A41.9 Sepsis, unspecified organism (principal); K72.01 Acute and subacute hepatic failure with coma; D65 Disseminated intravascular coagulation [defibrination syndrome]; E72.20 Disorder of urea cycle metabolism, unspecified; C90.00 Multiple myeloma not having achieved remission; E87.0 Hyperosmolality and hypernatremia; K92.1 Melena; E87.2 Acidosis; K80.00 Calculus of gallbladder with acute cholecystitis without obstruction; N17.9 Acute kidney failure, unspecified; D62 Acute posthemorrhagic anemia; Z51.5 Encounter for palliative care; K21.9 Gastro-esophageal reflux disease without esophagitis; G89.29 Other chronic pain; M54.9 Dorsalgia, unspecified; I08.1 Rheumatic disorders of both mitral and tricuspid valves; I50.9 Heart failure, unspecified; Z66 Do not resuscitate; R65.20 Severe sepsis without septic shock; R34 Anuria and oliguria; E87.5 Hyperkalemia; I48.2 Chronic atrial fibrillation; R60.1 Generalized edema; K62.89 Other specified diseases of anus and rectum; K64.8 Other hemorrhoids; Z95.2 Presence of prosthetic heart valve; Z88.8 Allergy status to other drugs, medicaments and biological substances
CPT/HCPCS: 36415; 70450; 71045; 74019; 74176; 74177; 76705; 80048; 80053; 80074; 80076; 80329; 81003; 81015; 82140; 82232; 82248; 82272; 82607; 82784; 82803; 83516; 83605; 83735; 83883; 84100; 84155; 84165; 84443; 84478; 85014; 85018; 85025; 85027; 85060; 85610; 85730; 86255; 86850; 86900; 86901; 86927; 87040; 87045; 87046; 87077; 87086; 87150; 87205; 87493; 87641; 87899; 88305; 93306; 94640; 96360; 96374; 99156; 99157; 99223; 99232; 99233; A9270-GY; C1751; C9132; G0378; G0480; J0132; J0133; J0282; J0610; J0696; J1160; J1940; J2060; J2250; J2270; J2405; J2543; J3010; J3411; J3430; J3480; J3490; J7060; P9017; Q9967